=== PATIENT | female | born 1965 | race African-American/Black ===

== ENCOUNTER 2023-07-22 09:40 | Outpatient (REF) | payer MEDICAID, SELFPAY ==
[2023-07-22 15:42] LABS: Alanine Aminotransferase 15 U/L (0-31); Albumin Level 4.1 g/dL (3.5-5.0); Alkaline Phosphatase 86 U/L (39-117); Anion Gap 16 (12-20); Aspartate Amino Transferase 18 U/L (5-31); Bilirubin Total 0.5 mg/dL (0.0-1.0); Blood Urea Nitrogen 37 mg/dL (9-16); Calcium 9.3 mg/dL (8.4-10.2); Carbon Dioxide 21 mmol/L (22-29); Chloride 110 mmol/L (96-108); Cholesterol 190 mg/dL (<200); Estimated Glomerular Filt Rate 33; Glucose Fasting 89 mg/dL (60-99); HDL Cholesterol 69 mg/dL (>40); LDL Cholesterol Calculated 104 mg/dL (<100); Potassium 3.8 mmol/L (3.3-5.1); Sodium 143 mmol/L (135-145); Total Protein 7.3 g/dL (6.5-8.0); Triglycerides 89 mg/dL (<150)
== END 2023-07-22 09:41 | disposition home or self-care (01) ==
LOC: HO.CHCLDS 09:40
PROVIDERS: Visit Provider Internal Medicine
DX: E78.2 Mixed hyperlipidemia (principal)
CPT/HCPCS: 36415; 80053; 80061

== ENCOUNTER 2025-07-10 10:45 | Outpatient (AMB) | payer OTHER, SELFPAY ==
--- NOTE | 2025-07-10 10:46 | MHC.OFFVIS ---
Vital Signs 07/10/25 10:55 Height 5 ft 1 in BP 142/78 H Blood Pressure Location Lt brachial Position Sitting Respiration 16 Pulse 85 Pulse Oximetry (%) 96 Intake Visit Reasons: ENP: Loss of consciousness/ Hx of Seizures Business Process Specialist Required: No Allergies fentanyl Allergy (Unknown, Verified 07/10/25 10:57) Unknown Iodinated Contrast Media (Contrast Dye) Allergy (Unknown, Verified 07/10/25 10:57) Unknown morphine Allergy (Unknown, Verified 07/10/25 10:57) Unknown Sulfa (Sulfonamide Antibiotics) Allergy (Unknown, Verified 07/10/25 10:57) Unknown sulfamethoxazole (From Bactrim) Allergy (Unknown, Verified 07/10/25 10:57) Unknown trimethoprim (From Bactrim) Allergy (Unknown, Verified 07/10/25 10:57) Unknown HPI Comments Details: Elle is a 60-year-old female patient is with a past medical history of seizure, memory concerns, hyperlipidemia, GERD, and depression who is here today for an evaluation of loss of consciousness . She tells me that she was diagnosed with a stroke in March of 2006 at which time she developed some seizure activity. She had a few recurrent seizure events a couple of months after her stroke diagnosis and has been on Keppra. She had eventually come off of Keppra and has been stable for many years until in 2021 when she was placed on tacrolimus for her kidney transplant. She had a breakthrough seizure after starting the tacrolimus and since then has been on levetiracetam 500 mg twice daily. Since re-initiation of levetiracetam, she had remained stable up until late April/early May of 2024 when she had an event where she was disoriented and has a complete loss of awareness over the course of an approximate 3 hour time span. During this time, she called family and friends to ask them if they would like to share a glass of wine with her. She however had not been drinking. She was acting very ?silly? according to others whom she spoke to and not quite herself. Elle however has no recollection of these interactions. She was able to recall in-home camera footage and noted that she also had slurred speech. Again, after watching the footed, she had no recollection of interactions or activity that would on over the course of a 3 hour time span. She was not noted on camera or witnessed by others to have any shaking episodes, staring episodes, or loss of consciousness. She does remember taking the levetiracetam 500 mg that morning and overall, she has good compliance with this medication. She denies any illness leading up to the event, significant stress triggers or significant acute changes in her sleep. She does however note that she lost her son approximately 5 months ago and her moods as well as sleep has been affected somewhat chronically since then. Seizure background information: Onset of seizures:2005 Date of last seizure: Likely May 2025 Seizure type: Previously witnessed seizures have been tonic-clonic Aura/warning signs: Unknown Postictal period: Disorientation Triggers: Unknown Last brain imagin06/2025 Last EEG: She recalls having an EEG done a few years back but can not recall where Current medications: Levetiracetam 500 mg twice daily Compliance with medications: Good compliance History of brain infection: No History of significant illness or hospitalization: No History of stroke of brain bleed: Patient reports stroke x2. There are micro idiopathic changes on her MRI but no evidence of previous territorial infarct History of pre-term : No History of learning disability: No History of developmental delay: No Family history of seizure No [facility] Medical History (Updated 07/10/25 @ 13:44 by Oksana Raines CNP) Insomnia HLD (hyperlipidemia) Hypertension GERD (gastroesophageal reflux disease) Seizures Review of Systems Const All systems reviewed & are unremarkable except as noted in HPI and below Physical Exam Vital Signs: Last Vital Signs Pulse 85 07/10/25 10:55 Resp 16 07/10/25 10:55 BP 142/78 H 07/10/25 10:55 Pulse Ox 96 07/10/25 10:55 Const General: cooperative, healthy appearing, comfortable and no acute distress Nutritional Appearance: well nourished Orientation/consciousness: patient oriented x3 Limitations: no limitations HEENT Head: Yes normal to inspection and Yes normocephalic Eyes General: appearance normal, both eyes and all related structures Visual Sanderson: normal visual sanderson by confrontation Alignment and Position: alignment normal Periorbital: periorbital findings normal Eyelids: Yes eyelids normal Conjunctivae: conjunctivae normal Sclerae: sclerae normal Neck Neck: Yes normal visual inspection and Yes full ROM Neuro General: patient oriented x3 and deep tendon reflexes 2+ bilaterally Cranial nerves: Yes CN's II-XII intact bilaterally and Yes Facial sensation intact/muscles of mastication intact Cognition (Neuro): normal cognition Gait exam (Neuro): Normal gait present Motor exam (neuro): 5/5 motor strength present throughout and no tremor noted Sensory Exam: double simultaneous stimulation for sensation normal Romberg Test: Negative Pupils: Normal pupillary reactivity/response: bilateral Psych Appearance: grossly normal Mental Status: mental status grossly normal Speech and movement: Normal speech and movement present and Clear speech present Affect: normal affect Attitude: cooperative Thought process: Normal thought process present Thought content: Normal thought content present Insight: Good insight present (Psych) Judgement: Good judgement present (Psych) Assessment & Plan Assessment & Plan (1) Seizure disorder as sequela of cerebrovascular accident: Code(s): I69.398 - Other sequelae of cerebral infarction; G40.909 - Epilepsy, unspecified, not intractable, without status epilepticus Category: Medical (2) Disassociation: Code(s): F48.8 - Other specified nonpsychotic mental disorders Category: Medical Plan Elle is a 60-year-old female patient is with a past medical history of seizure, memory concerns, hyperlipidemia, GERD, and depression who is here today for an evaluation of loss of consciousness . Rather than a loss of consciousness, this patient describes an episode in late April/early May of 2024 when she had a near 3 hour time span of dissociation and disorientation. There was no loss of consciousness, tongue biting, witnessed shaking, or witnessed staring episodes. She has been compliant with her levetiracetam. She has in the past tolerated levetiracetam at higher dosing and therefore I think it is reasonable to increase her levetiracetam to 750 mg twice daily. I am also recommending a 24 hour ambulatory EEG to evaluate for ongoing seizure activity/episodes that may have otherwise been undetected provided that the patient had no recollection of her dissociative event that occurred back in the late summer. Once we obtain the ambulatory EEG, we will follow-up. The patient was given information to access the patient portal and was encouraged to communicate with me should she have any new arising symptoms. DD: Other transient amnesia -24hr AEEG -Increase leveteracetam to 750mg twice daily Orders: Orders EEG ambulatory Today R41.0 - Disorientation, unspecified Medications: New levetiracetam 750 mg PO BID 180 tabs 3RF 90 days Coding Level of Care Code New Pt Level 4 (18300) Diagnoses Seizure disorder as sequela of cerebrovascular accident I69.398; G40.909 Disassociation F48.8
[2025-07-10 10:55] VITALS: BP 142/78; PULSE 85; RESP 16; O2SAT 96
--- OUTSIDE RECORDS SUMMARY | 2025-07-10 12:19 | XMS_ITS | Clinical Summary ---
Author Organization [facility] Address [address] [place] [address] Care Team Providers Care Assembly Hand Name Role Phone Name, Chris LOVELACE Primary Care Provider Medications famotidine (PEPCID) 20 mg tabletIndication s:Gastroesophage al reflux disease without esophagitis Take 1 tablet (20 mg total) by mouth 2 (two) times a day. 180 each 3 08/21/2024 Active Surgical History Surgery Date Site/Laterality Comments OTHER SURGICAL HISTORY 09/26/2013 PROCEDURE: NC RENAL ALTRNSPLJ IMPLTJ GRF W/O PHLEBOTOMY MANAGER NEPHRECTOMY; COMMENT: Living related donor HERNIA REPAIR PROCEDURE: HISTORICAL HERNIA REPAIR/NAVNEET HERNIA REPAIR PROCEDURE: HISTORICAL HERNIA REPAIR/UMB BREAST REDUCTION PROCEDURE: NC BREAST REDUCTION OTHER SURGICAL HISTORY PROCEDURE: NC COLECTOMY PARTIAL W/ANASTOMOSIS; COMMENT: diverticular bleed PARATHYROIDECTOMY PROCEDURE: HISTORICAL PARATHYROIDECTOMY COLONOSCOPY 01/05/2016 PROCEDURE: HISTORICAL COLONOSCOPY; COMMENT: internal hemorrhoids, repeat 10 years. No path report. OTHER SURGICAL HISTORY 03/2020 PROCEDURE: NC CLOSURE NEPHROCUTANEOUS/PYELOCUTANEOUS FISTULA Medical History Medical History Date Comments End-stage renal disease (ESR D) (CMS/HCC V24, CMS/HCC V28) 08/13/2019 DX:End-stage renal disease (ESRD) ([facility] COMMENT: Secondary to focal segmental glomerulosclerosis s/p transplant. Depression 08/13/2019 DX:Depression Gout 08/13/2019 DX:Gout History of maternal deep vei n thrombosis (DVT) 08/13/2019 DX:History of maternal deep vein thrombosis (DVT); COMMENT: Upper extremity Hyperlipidemia 08/13/2019 DX:Hyperlipidemi a History of seizure 08/13/2019 DX:History of seizure Positive PPD, treated 08/13/2019 DX:Positiv e PPD, treated; COMMENT: INH Refusal of blood transfusion s as patient is Anabaptism 08/13/2019 DX:Refusal of blood trans fusions as patient is Anabaptism Severe obesity with body mas s index (BMI) of 35.0 to 39.9 with comorbidity (CMS/HCC V24, CMS/HCC V28) 08/13/2019 DX:Severe obesity with body mass index (BMI) of 35.0 to 39.9 with comorbidity (HCC) History of CVA (cerebrovascu lar accident) 08/13/2019 DX:History of CVA (cerebrova scular accident); COMMENT: Doing well, no residual. History of renal transplant 08/13/2019 DX:H istory of renal transplant; COMMENT: 09/26/2013 Family History Medical History Relation Name Comments Heart attack Father Relation Name Status Comments Father Mother Social History Tobacco Use Types Packs/Day Years Used Date Smoking Tobacco: Former Cigarettes Q uit: 05/27/1987 Smokeless Tobacco: Never Alcohol Use Standard Drinks/Week Comments Yes 0 (1 standard drink = 0.6 oz pur e alcohol) Comments Unknown Sex and Gender Information Value Date Recorded Sex Assigned at Not on file Legal Sex Female 8:50 PM EST Gender Identity Not on file Sexual Orientation Not on file Obstetrics History Plan of Treatment Health Maintenance Due Date Last Done Comments Breast Cancer Screening 1965 Colorectal Cancer Screening: Colonoscopy 1965 COVID-19 Vaccine (#1) 1970 Zoster Vaccines (1 of 2) 1984 Cervical Cancer Screening: P ap Smear 1986 Pneumococcal Vaccine: 50+ Ye ars (2 of 2 - PCV) 2015 04/18/2007 DTaP,Tdap,and Td Vaccines (2 - Td or Tdap) 04/05/2021 04/05/2011 Cholesterol Screening (Lipid Panel) 09/11/2022 HIV Screening 09/11/2022 Hepatitis C Screening 09/11/2022 Social Influencers of Health Screening 09/11/2022 Depression Screening 10/10/2024 Influenza Vaccine (#1) 2025 RSV Immunization Adult Patie nts (1 - Risk 60-74 years 1-dose series) 2025 HIB Vaccines Aged Out No longer eligi ble based on patient's age to complete this topic HPV Vaccines Aged Out No longer eligi ble based on patient's age to complete this topic Hepatitis A Vaccines Aged Out No long er eligible based on patient's age to complete this topic Hepatitis B Vaccines Aged Out No long er eligible based on patient's age to complete this topic IPV Vaccines Aged Out No longer eligi ble based on patient's age to complete this topic MMR Vaccines Aged Out No longer eligi ble based on patient's age to complete this topic Meningococcal ACWY Vaccine Aged Out N o longer eligible based on patient's age to complete this topic Meningococcal B Vaccine Aged Out No l onger eligible based on patient's age to complete this topic RSV Immunization Patients Un tito 20 months Aged Out No longer eligible b ased on patient's age to complete this topic Varicella Vaccines Aged Out No longer eligible based on patient's age to complete this topic Advance Directives Documents on File Type Date Recorded Patient Foil Operator Expl anation Health Care Decision (hx) 01/17/2020 AD SEBASTIAN DIRECTIVE Health Care Decision (hx) 01/17/2020 AD SEBASTIAN DIRECTIVE Care Teams Assembly Hand Relationship Specialty Start Date End Date Name, MD Chris [address] [place] [address] PCP - General Internal Medicine 07/30/20
--- OUTSIDE RECORDS SUMMARY | 2025-07-10 12:19 | XMS_ITS | Encounter Summary ---
Author Organization [facility], Address [address] [facility] [address] [place] [address] Phone Care Team Providers Care Staffing Program Manager Name Role Phone Jerome Fan Primary Care Provider [phone] Encounter Details Date Type Department Care Team (Late st Contact Info) Description 04/04/2024 Documentation Only [facility] [address] [place] [phone] [place] [address] [place] [phone] Social History Tobacco Use Types Packs/Day Years Used Date Smoking Tobacco: Never Smokeless Tobacco: Never Comments:Smoking History Inf o:Unknown Alcohol Use Standard Drinks/Week Comments Yes 0 (1 standard drink = 0.6 oz pure alcohol) Alcoholic Drinks/day: Occasional social drink Comments Unknown Sex and Gender Information Value Date Recorded Sex Assigned at Not on file Legal Sex Female 5:05 PM EST Gender Identity Not on file Sexual Orientation Not on file documented as of this encounter Plan of Treatment Upcoming Encounters Date Type Department Care Team (Late st Contact Info) Description 08/07/2025 2:00 PM EDT Telemedicine [facility] [address] [place] [id number] 08/30/2025 10:45 AM EST Office Visit [facility] [address] [place] [phone] Jose Manuel Seth MD [address] [place] [place] [address] documented as of this encounter Visit Diagnoses Not on filedocumented in this encounter Care Teams Staffing Program Manager Relationship Specialty Start Date End Date Jerome Fan [address] [place] [id number] PCP - General Internal Medicine 08/17/24 documented as of this encounter
--- OUTSIDE RECORDS SUMMARY | 2025-07-10 12:19 | XMS_ITS | Encounter Summary ---
Author Organization [facility] Address [address] [facility] [address] [place] [address] Phone Care Team Providers Care Marketing Project Lead Name Role Phone Jerome Fan Primary Care Provider + [phone] Reason for Visit * Reason Comments Med Refill Encounter Details Date Type Department Care Team (Late st Contact Info) Description 03/14/2023 Refill [facility] [address] [facility] [address] [place] [phone] Elsy Pond MD Insomnia, not otherwise specified (Primary Dx) Social History Tobacco Use Types Packs/Day Years Used Date Smoking Tobacco: Never Comments:Smoking History Inf o:Unknown Alcohol [...] Telemedicine [facility] [address] [place] [address] 08/30/2025 10:45 AM EST Office Visit [facility] [address] [place] [address] Jose Manuel Seth MD [address] [place] [address] [place] [address] documented as of this encounter Visit Diagnoses Diagnosis Insomnia, not otherwise specified- Primary documented in this encounter Care Teams Marketing Project Lead Relationship Specialty Start Date End Date Jerome Fan: [phone] [address] [place] [id number] PCP - General Internal Medicine 08/17/24 documented as of this encounter
--- OUTSIDE RECORDS SUMMARY | 2025-07-10 12:19 | XMS_ITS | Encounter Summary ---
Author Organization [employer] Address [address] [facility] 7 [place] [address] Care Team Providers Care Membership Manager Name Role Phone Jerome Esqueda MD Primary Care Prov ider Reason for Visit * Reason Comments Med Change Request Encounter Details Date Type Department Care Team ([facility] Contact Info) Description 07/23/2023 Refill [facility] [address] [place], [place] [phone] Jerome Esqueda MD [address] [place] [address] Social History Tobacco Use Types Packs/Day Years Used Date Smoking Tobacco: Never Assessed Depression Answer Date Recorded Patient Health Questionnaire-9 Score 1 05/16/2023 Housing Stability Answer Date Recorded What is your housing situation today? I have elaine lima 07/25/[address] you li ve. Do you have problems with any of the following? None of the above 07/25/2023 Food Insecurity Answer Date Recorded Within the past 12 months, y ou worried that your food would run out before you got money to buy more: Never True 07/25/2023 Within the past 12 months,th e food you bought just didn't last and you didn't have enough money to get more: Never True Transportation Answer Date Recorded In the past 12 months, has l ack of transportation kept you from medical appts, meetings, work or from getting things needed for daily living? No 07/25/2023 Utilities Answer Date Recorded In the past 12 months, has t he electric, gas, oil or water company threatened to shut off services in your home? No 07/25/2023 Depression Answer Date Recorded Patient Health Questionnaire-2 Score 1 05/16/2023 Comments Unknown Sex and Gender Information Value Date Recorded Sex Assigned at Female 08/09/2022 10:36 AM EDT Legal Sex Female 10:36 AM EDT Gender Identity Female 08/09/2022 10:36 AM EDT Sexual Orientation Straight 08/09/2022 10 :36 AM EDT documented as of this encounter Plan of Treatment Upcoming Encounters Date Type Department Care Team (Late st Contact Info) Description 08/14/2025 2:00 PM EST Telemedicine [facility] [address] [place] [address] Jerome Esqueda MD [address] [place] [address] documented as of this encounter Visit Diagnoses Not on filedocumented in this encounter Additional Health Concerns Assessment Noted Time PHQ-9 Depression Total Score: 1 05/16/20 23 1:21 PM EDT documented as of this encounter Care Teams Membership Manager Relationship Specialty Start Date End Date Jerome Esqueda MD [address] [place] [address] PCP - General Internal Medicine 12/04/19 documented as of this encounter
--- OUTSIDE RECORDS SUMMARY | 2025-07-10 12:19 | XMS_ITS | Clinical Summary ---
Author Organization [employer] Address [address] [facility] 7t [place] [address] Care Team Providers Care Realty Loan Specialist Name Role Phone Jerome Esqueda MD Primary Care Prov ider Allergies Active Allergy Reactions Criticality Noted Date Comments Sulfamethoxazole-Trimethoprim Hives Low 2022 Fentanyl 11/08/2022 Iodinated Contrast Media Hives Low 11/08/2022 Morphine 11/08/2022 Oxycodone-Acetaminophen 11/08/2022 Sulfadiazine Other 11/08/2022 Acetaminophen-Codeine 11/08/2022 Lisinopril Other Low 11/08/2022 Medications * This document contains information received from the source organization and may not represent a complete record from that organization. albuterol 108 (90 Base) MCG/ACT inhalerIndicatio ns:Bilateral rales,Cough, unspecified type Inhale 2 puffs every 6 (six) hours if needed for wheezing. 18 g 11 11/08/19 23 Active mycophenolate (Myfortic) 180 MG EC tablet 10/26/19 23 Active predniSONE (Deltasone) 2.5 MG tablet 10/26/19 23 Active atorvastatin (Lipitor) 10 MG tablet 09/29/20 22 Active aspirin 81 MG chewable tablet Chew 81 mg. 04/06/20 21 Active famotidine (Pepcid) 20 MG tablet 09/29/20 22 Active levETIRAcetam (Keppra) 500 MG tablet Take 500 mg by mouth. 09/29/20 22 Active furosemide (Lasix) 40 MG tablet Take 40 mg by mouth. 09/07/20 22 Active traZODone (Desyrel) 50 MG tablet Take 50 mg by mouth in the morning. Active loratadine (Claritin) 10 MG tablet Take 10 mg by mouth. 03/11/20 22 Active Spacer/Aero-Hold ing Chambers (Pro Comfort Spacer Adult) miscIndications: Mild intermittent asthma without complication 1 kit 3 times daily. 1 each 12/06/19 23 Active sertraline (Zoloft) 100 MG tablet TAKE ONE TABLET BY MOUTH ONCE DAILY 90 tablet 06/21/2025 11:50 AM EDT 06/14/20 25 Active zolpidem (Ambien) 10 MG tablet TAKE 1 TABLET BY MOUTH IF NEEDED AT BEDTIME FOR SLEEP 30 tablet 06/28/2025 11:04 AM EDT 06/25/20 25 Active sertraline (Zoloft) 100 MG tablet Take 1 tablet (100 mg) by mouth Once per day. 90 tablet 03/27/2025 2:42 PM EDT 03/26/20 25 025 Discontinued zolpidem (Ambien) 10 MG tablet TAKE 1 TABLET (10 MG) BY MOUTH IF NEEDED AT BEDTIME FOR SLEEP 30 tablet 05/31/2025 2:29 PM EDT 05/27/20 25 025 Discontinued Active Problems Problem Noted Date Diagnosed Date Adjustment disorder with depressed mood 03/27/20 25 Assessment & Plan (04/17/2025 3:58 PM EDT): During IBH Consult Elle presenting with depressed mood, Tearful, crying spells , hopelessness, loss of interests/pleasure , change in appetite or weight reduce appetite, changes in sleep difficulty falling asleep and difficulty staying asleep , difficulty concentrating, indecisiveness; for a period of 0-6 mo, for most or all symptoms in the context of . Pt experiencing emotional and physical pain associated with the of her son. Today, Elle reported having good and bad days. She is focusing on the good memories and remembering the times she spent with her son. We discussed and assessed willingness of seeking for additional support. Pt feels motivated in connecting with support groups and getting to know others who are going through the same pain. clinician provided information for bereavement groups and provided pt with their contact info. Pt was also informed of referral made on 04/01 to [facility]- provided contact info as well. clinician will continue to provide additional support as requested from pt and as needed. Assessment & Plan (04/01/2025 3:32 PM EDT): During IBH Consult Elle presenting with depressed mood, Tearful, crying spells , hopelessness, loss of interests/pleasure , sense of isolation/loneliness , isolating, change in appetite or weight reduce appetite, changes in sleep difficulty falling asleep and difficulty staying asleep , psychomotor retardation, fatigue/loss of energy, difficulty concentrating, indecisiveness, angry, confused, severe sadness and yearning; for a period of almost two months (passing of her son was on 01/2025), for most or all symptoms in the context of . Elle is going through a difficult time emotionally due to losing her adult son (twin brother) unexpectedly. Pt receives positive support from her scientologist community and family. Provided empathic counseling and discuss plan to use during this difficult time. Bereavement 03/27/2025 Assessment & Plan (06/13/2025 9:58 AM EDT): Patient has good family support, no suicidal/homicidal ideas, continue with therapist follow up, will follow up in 3 months Assessment & Plan (04/17/2025 3:58 PM EDT): During IBH Consult Elle presenting with depressed mood, Tearful, crying spells , hopelessness, loss of interests/pleasure , change in appetite or weight reduce appetite, changes in sleep difficulty falling asleep and difficulty staying asleep , difficulty concentrating, indecisiveness; for a period of 0-6 mo, for most or all symptoms in the context of . Pt experiencing emotional and physical pain associated with the of her son. Today, Elle reported having good and bad days. She is focusing on the good memories and remembering the times she spent with her son. We discussed and assessed willingness of seeking for additional support. Pt feels motivated in connecting with support groups and getting to know others who are going through the same pain. clinician provided information for bereavement groups and provided pt with their contact info. Pt was also informed of referral made on 04/01 to [facility]- provided contact info as well. clinician will continue to provide additional support as requested from pt and as needed. Screening for colon cancer 01/17/2025 Assessment & Plan (01/17/2025 12:32 PM EDT): Done on 2018, due in 10 years Primary insomnia 09/20/2023 Assessment & Plan (09/20/2023 10:50 AM EST): Patient on zolpidem 5mg, will increase dose to 10mg, will add additional 5mg, lifestyle modifications were discussed Class 3 severe obesity due t o excess calories with serious comorbidity and body mass index (BMI) of 40.0 to 44.9 in adult 07/23/2023 Assessment & Plan (12/12/2023 2:54 PM EST): Will place nutrition referral, Assessment & Plan (07/23/2023 10:16 AM EDT): Patient is interested in starting wegovy, it was also recommended by her development geologist, will place order, reviewed side effects Mixed hyperlipidemia 07/23/2023 Assessment & Plan (07/23/2023 10:20 AM EDT): On atorvastatin 10mg, will place orders for new cmp/lipid panel Opacity of lung on imaging study 02/25/2023 Assessment & Plan (02/25/2023 1:42 PM EDT): Patient has hx of effusion, chest tube and talc pleurodesis, lung ct from 07/31 and chest xray showed iatrogenic changes, no nodules seen, discussed results with patient, she does have a lung biopsy done in 2019 which is not the chart, will request results, for now recommended observation. Atypical ductal hyperplasia of breast 01/26/2023 Assessment & Plan (05/31/2024 10:41 AM EDT): Saw oncologist on 10/2023, continue surveillance Class 1 obesity 01/26/2023 End stage renal failure on dialysis (CMS/HCC) Overview (01/26/2023): previous on PD and now on HD Hemorrhoids without complication 01/26/2023 Hyperlipidemia 01/26/2023 History of renal transplant 01/26/2023 History of thyroidectomy 01/26/2023 Lactic acid acidosis 01/26/2023 Renal transplant failure and rejection Severe obesity (BMI 35.0-39.9) with comorbidity [place] 01/26/2023 Proteinuria 01/20/2023 Seizure ([facility] 01/20/2023 Dyspnea 12/08/2022 Edema 12/08/2022 Murmur 12/08/2022 Elevated blood pressure reading 11/08/2022 Cerebrovascular accident ([facility]) 07/29/2022 Assessment & Plan (05/16/2023 2:21 PM EDT): Patient with a low toilet seat, will send rx for raised toilet seat with handles. Lactic acidosis 07/29/2022 Anemia in chronic kidney disease 07/22/2022 Kidney transplant status 07/22/2022 Assessment & Plan (07/23/2023 10:20 AM EDT): Followed by nephrology History of kidney transplant 03/28/2022 Overview (01/26/2023): campath induction/DCD Depressive disorder 03/05/2022 End-stage renal disease on hemodialysis ([facility] [place] 03/05/2022 Gastrointestinal hemorrhage 03/24/2021 Acquired absence of kidney 05/08/2019 Acquired deformity of pelvis 05/08/2019 Acid reflux 04/14/2018 Bilateral carpal tunnel syndrome 04/14/2018 Chronic nephritic syndrome 04/14/2018 Diastolic dysfunction 04/14/2018 Essential hypertension 04/14/2018 Assessment & Plan (01/17/2025 12:31 PM EDT): Controlled, continue low sodium diet and exercise, keep bp log, follow up in 4 months Assessment & Plan (11/15/2024 2:29 PM EST): Controlled, keep low sodium diet, keep bp log, target <140/90 Assessment & Plan (05/31/2024 10:40 AM EDT): Controlled, followed by nephrology, continue low sodium diet and exercise as tolerated Assessment & Plan (12/12/2023 2:53 PM EST): Controlled, refers does not goes above 140/90, continue same treatment, follow up in 4 months Gout 04/14/2018 Graft rejection 04/14/2018 Hyperparathyroidism due to renal insufficiency 0 04/14/2018 Hypertensive heart and renal disease with (congestive) heart failure 04/14/2018 Lymphocele after surgical procedure 04/14/2018 Mantoux: positive 04/14/2018 Status post laparoscopic colectomy 04/14/2018 Superficial injury of abdominal wall with infect ion 04/14/2018 Encounters * This document contains information received from the source organization and may not represent a complete record from that organization. Date Type Department Care Team Description 06/22/2025 Refill [facility] [address] [facility] [place] [address] Jerome Esqueda MD 06/13/2025 Refill [facility] MED & P[facility] [address] [facility] [place] [address] Jerome Esqueda MD 05/29/2025 10:30 AM EDT Telemedicine [facility] MED & PEDS [address] [place] [address] Jerome Esqueda MD Loss of consciousness (CMS/HCC) (Primary Dx) 05/29/2025 Travel 05/28/2025 Telephone [facility] [address] Jerome Esqueda MD chart prep 05/23/2025 Refill [facility] MED & PEDS [address] [place] [address] Jerome Esqueda MD 05/22/2025 Travel 05/20/2025 Telephone [facility] MED & PEDS [address] [place] [address] Jerome Esqueda MD Appointment Request 05/09/2025 11:30 AM EDT Telemedicine [facility] MED & PEDS [address] [place] [address] Jerome Esqueda MD Bereavement (Primary Dx) 05/09/2025 Travel 05/08/2025 Telephone [facility] MED & PEDS [address] [place] [address] Jerome Esqueda MD chart prep 04/24/2025 Refill [facility] MED & PEDS [address] [place] [address] Jerome Esqueda MD from Last 3 Months Social History Tobacco Use Types Packs/Day Years Used Date Smoking Tobacco: Never Smokeless Tobacco: Never Tobacco Cessation:Counseling Given: Not Answered Alcohol Use Standard Drinks/Week Comments Never 0 (1 standard drink = 0.6 oz pur e alcohol) Depression Answer Date Recorded Patient Health Questionnaire-9 Score 16 04/17/2025 Patient Health Questionnaire-9 Score 16 04/17/2025 Last PHQ-9: Questionnaire Data Not on file 0 04/17/2025 Housing Stability Answer Date Recorded What is your housing situation today? I have elaine janie 05/09/[address] you li ve. Do you have problems with any of the following? None of the above 05/09/2025 Food Insecurity Answer Date Recorded Within the past 12 months, y ou worried that your food would run out before you got money to buy more: Never True 05/09/2025 Within the past 12 months,th e food you bought just didn't last and you didn't have enough money to get more: Never True Transportation Answer Date Recorded In the past 12 months, has l ack of transportation kept you from medical appts, meetings, work or from getting things needed for daily living? No 05/09/2025 Utilities Answer Date Recorded In the past 12 months, has t he electric, gas, oil or water company threatened to shut off services in your home? No 05/09/2025 Depression Answer Date Recorded Patient Health Questionnaire-2 Score 6 04/17/2025 Internet Access Answer Date Recorded Internet Access Q1 Yes 05/09/2025 Internet Access Q2 Not on file 05/09/2025 Comments Unknown Sex and Gender Information Value Date Recorded Sex Assigned at Female 08/09/2022 10:36 AM EDT Legal Sex Female 10:36 AM EDT Gender Identity Female 08/09/2022 10:36 AM EDT Sexual Orientation Straight 08/09/2022 10 :36 AM EDT Last Filed Vital Signs Vital Sign Reading Time Taken Comments Blood Pressure 126/69 01/17/2025 10:50 AM EDT Pulse 88 04/10/2024 3:23 PM EDT Temperature 37.1 C (98.7 F) 04/10/2024 3:23 PM EDT Respiratory Rate 20 04/10/2024 3:23 PM EDT Oxygen Saturation 96% 07/22/2023 8:54 AM EDT Inhaled Oxygen Concentration - - Weight 106 kg (233 lb 9.6 oz) 06/22/2024 1:23 PM EDT Height 154.9 cm (5' 1 ) 06/22/2024 1:23 PM EDT Body Mass Index 44.14 06/22/2024 1:23 PM EDT Plan of Treatment Upcoming Encounters Date Type Department Care Team (Late st Contact Info) Description 08/14/2025 2:00 PM EST Telemedicine [facility]S [address] [place] [address] Jerome Esqueda MD [address] [place] [address] Health Maintenance Due Date Last Done Comments CT Colonography 1965 Colonoscopy 1965 Colorectal Cancer Screening 1965 FIT DNA/Cologuard 1965 FIT 1965 FOBT 1965 HIV Screening 1965 Sigmoidoscopy 1965 Disability Screening 1965 Hepatitis C Screening 1983 Pap Smear 1986 Cervical Cancer Screening 1995 HPV/Cotest 1995 Pneumococcal Vaccine: 50+ Years (2 of 2 - PCV) 04/18/2008 04/18/2007 DTaP/Tdap/Td Vaccines (2 - Td or Tdap) 04/05/2021 04/05/2011 Tobacco Screening 12/11/2024 12/12/2023 COVID-19 Vaccine ( season) 2025 07/22/2023, 2022, 02/13/2022, Additional history exists Influenza Vaccine (#1) 2025 3, 10/01/2022, 07/30/2021, Additional history exists RSV Patients and Patients Aged 60 years or older (1 - Risk 60-74 years 1-dose series) 2025 Depression Monitoring 10/18/2025 04/17/2025, 025 Alcohol/Substance Use Screening 05/09/2026 05/09/2025 SDOH Screening 05/09/2026 05/09/2025 Mammogram 10/19/2026 10/19/2024 Lipid Panel 07/22/2028 07/22/2023 Zoster Vaccines Completed 07/07/2022, 03/12/2022 HIB Vaccines Aged Out No longer eligi [...] patient's age to complete this topic Meningococcal Vaccine Aged Out No sandra renan eligible based on patient's age to complete this topic RSV under 20 months Aged Out No longe r eligible based on patient's age to complete this topic Rotavirus Vaccines Aged Out No longer eligible based on patient's age to complete this topic Procedures Procedure Name Priority Date/Time Associated Diagnosis Comments MR BRAIN WO CONTRAST Routine 06/20/2025 Loss of consciousness (CMS/HCC) HM MAMMOGRAPHY Routine 10/19/2024 LIPID PANEL, STANDARD Routine 07/22/2023 9:45 AM EDT Mixed hyperlipidemia from Last 3 Months or Most Recently Relevant to Health Maintenance Results * MR Brain w/o Contrast (06/20/2025) Anatomical Region Laterality Modality Brain Magnetic Resonan ce Jerome Rodriguez MD IMG MRI PROCEDURES Final Result * Mammography (10/19/2024) Mammogram BIRADS 2 Normal, Abnormal, BIRADS 1 , BIRADS 2 Anatomical Region Laterality Modality Other Nir Provider HEALTH MAINTENANCE Final Result * (ABNORMAL) Lipid Panel, Standard (07/22/2023 9:45 AM EDT) Triglycerides 89 <150 mg/dL [facility] Comment:Desirable Triglyceri de: less than 150 mg/dLBorderline High Triglyceride 150-199 mg/dLHigh Triglyceride: 200-499 mg/dLVery High Triglyceride: greater than or equal to 5OO mg/dL Cholesterol 190 <200 mg/dL [facility] Comment:Desirable Cholestero l: less than 200 mg/dLBorderline High Cholesterol: 200-239 mg/dLHigh Cholesterol: greater than 239 mg/dL LDL Cholesterol Calculated 104(H) <100 mg/dL [facility] Comment:Desirable LDL: less than 100 mg/dLNear Optimal/Above Optimal LDL: 110- 129 mg/dLBorderline High LDL: 130-159 mg/dLHigh LDL: 160-189 mg/dLVery High LDL: greater than or equal to 190 mg/dL HDL Cholesterol 69 >40 mg/dL [facility] Comment:Desirable HDL: great er than 40 mg/dL Note: This HDL assay may give artificially low results in patients with liver disease. Blood Venous blood specimen / Unknown 07/22/2023 9:45 AM EDT 07/22/2023 2:26 PM EDT Jerome Rodriguez MD LAB BLOOD ORDERABL ES Final Result [facility] [address] [place] [phone] from Last 3 Months or Most Recently Relevant to Health Maintenance Insurance [facility] Care Teams Realty Loan Specialist Relationship Specialty Start Date End Date Jerome Esqueda MD [address] [place] [phone] PCP - General Internal Medicine 12/04/19
--- OUTSIDE RECORDS SUMMARY | 2025-07-10 12:19 | XMS_ITS | Encounter Summary ---
Author Organization [employer] Address [address] [facility] 7 [place] [address] Care Team Providers Care Dogman/Woman Name Role Phone Jerome Esqueda MD Primary Care Prov ider Encounter Details Date Type Department Care Team (Late st Contact Info) Description 08/11/2023 Orders Only [facility]S [address] [place], [place] [phone] Jerome Esqueda MD [address] [place] [address] Social History Tobacco Use Types Packs/Day Years [...] Info) Description 08/14/2025 2:00 PM EST Telemedicine [facility] MED [facility] [address] [place] [address] Jerome Esqueda MD [address] [place] [address] documented as of this encounter Visit Diagnoses Not on filedocumented in this encounter Additional Health Concerns Assessment Noted Time PHQ-9 Depression Total Score: 1 05/16/20 23 1:21 PM EDT documented as of this encounter Care Teams Dogman/Woman Relationship Specialty Start Date End Date Jerome Esqueda MD [address] [place] [address] PCP - General Internal Medicine 12/04/19 documented as of this encounter
--- OUTSIDE RECORDS SUMMARY | 2025-07-10 12:19 | XMS_ITS | Encounter Summary ---
Author Organization [facility], Address [address] [facility] [address] [place] [address] Phone Care Team Providers Care Gullet Slitter Name Role Phone Jerome Fan Primary Care Provider [phone] Encounter Details Date Type Department Care Team (Late st Contact Info) Description 04/05/2024 Documentation Only [facility] [address] [place] [phone] [place] [address] [place] [phone] Social History Tobacco Use Types Packs/Day [...] Telemedicine [facility] [address] [place] [place] [phone] 08/30/2025 10:45 AM EST Office Visit [facility] [address] [place] [phone] Jose Manuel Seth MD [address] [place] [address] documented as of this encounter Visit Diagnoses Not on filedocumented in this encounter Care Teams Gullet Slitter Relationship Specialty Start Date End Date Jerome Fan [address] [place] [phone] PCP - General Internal Medicine 08/17/24 documented as of this encounter
--- OUTSIDE RECORDS SUMMARY | 2025-07-10 12:19 | XMS_ITS | Encounter Summary ---
Author Organization [facility], Address [address] [facility] [address] [place] [address] Phone Care Team Providers Care General Production Manager Name Role Phone Jerome Fan Primary Care Provider [phone] Encounter Details Date Type Department Care Team (Late st Contact Info) Description 04/06/2024 Documentation Only [facility] [address] [place] [phone] [place] [address] [phone] Social History Tobacco Use Types Packs/Day [...] Telemedicine [facility] [address] [place] [phone] 08/30/2025 10:45 AM EST Office Visit [facility] [address] [place] [phone] Jose Manuel Seth MD [address] [place] [address] documented as of this encounter Visit Diagnoses Not on filedocumented in this encounter Care Teams General Production Manager Relationship Specialty Start Date End Date Jerome Fan [address] [place] [phone] PCP - General Internal Medicine 08/17/24 documented as of this encounter
--- OUTSIDE RECORDS SUMMARY | 2025-07-10 12:19 | XMS_ITS | Encounter Summary ---
Author Organization [employer] Address [address] [facility] 7 [place] [address] Care Team Providers Care Barrel Liner Name Role Phone Jerome Esqueda MD Primary Care Prov ider Reason for Visit * Reason Onset Date Comments triage 02/16/2023 Encounter Details Date Type Department Care Team (Late st Contact Info) Description 02/16/2023 Telephone [facility] [address] [place] [address] Jerome Esqueda MD [address] [place] [address] triage Social History Tobacco Use Types Packs/Day Years Used Date Smoking Tobacco: Never Assessed Comments Unknown Sex and Gender Information Value Date Recorded Sex Assigned at Female 08/09/2022 10:36 AM EDT Legal Sex Female 10:36 AM EDT Gender Identity Female 08/09/2022 10:36 AM EDT Sexual Orientation Straight 08/09/2022 10 :36 AM EDT documented as of this encounter Miscellaneous Notes * Telephone Encounter - Jaida Brown RN - 02/16/2023 12:59 PM EDT Triage call, Pt reports getting a chest xray back in October and still doesn't know the results. Ptcontinues to have SOB when walking from bedroom to bathroom and requests to speak to PCP. Tele visit 02/21 @ 1130am. Pt agrees with this disposition . Advised to look for registration call that morning and Pt agrees. Protocol Used: Information Only Call - No Triage (Adult) Protocol-Based Disposition: Discuss with PCP and Callback by Nurse Today Override (Final) Disposition: See in Office or Video Visit within 2 Weeks Override Reason: Requests to speak with provider Video visit offer not recorded Positive Triage Question: * Nursing judgment * All higher-acuity triage questions were negative * Telephone Encounter - Denis Wellington - 02/16/2023 12:48 PM EDT Symptom: Breathing Trouble Outcome: Schedule an urgent appointment (within 1 hour) or talk to a nurse or provider soon Reason: Caller denied all higher acuity questions The caller accepted this outcome documented in this encounter Plan of Treatment Upcoming Encounters Date Type Department Care Team (Late st Contact Info) Description 08/14/2025 2:00 PM EST Telemedicine [facility] MED [facility] PED[facility] [address] [place] [address] Jerome Esqueda MD [address] [place] [address] documented as of this encounter Visit Diagnoses Not on filedocumented in this encounter Care Teams Barrel Liner Relationship Specialty Start Date End Date Jerome Esqueda MD [address] [place] [address] PCP - General Internal Medicine 12/04/19 documented as of this encounter
--- OUTSIDE RECORDS SUMMARY | 2025-07-10 12:19 | XMS_ITS | Encounter Summary ---
Author Organization [employer] Address [address] [facility] 7 [place] [address] Care Team Providers Care Inspector Conveyor Line Name Role Phone Jerome Esqueda MD Primary Care Prov ider Reason for Visit * Reason Comments Med Refill Encounter Details Date Type Department Care Team ([facility] Contact Info) Description 04/24/2025 Refill [facility] CHC MED & PEDS [address] [place], [place] [phone] Jerome Esqueda MD 505 [place] [address] Social History Tobacco Use Types Packs/Day Years Used Date Smoking Tobacco: Never Smokeless Tobacco: Never Alcohol Use Standard Drinks/Week Comments Never 0 [...] Recorded Patient Health Questionnaire-2 Score 6 04/17/2025 Comments Unknown Sex and Gender Information Value Date Recorded Sex Assigned at Female 08/09/2022 10:36 AM EDT Legal Sex Female 10:36 AM EDT Gender Identity Female 08/09/2022 10:36 AM EDT Sexual Orientation Straight 08/09/2022 10 :36 AM EDT documented as of this encounter Plan of Treatment Upcoming Encounters Date Type Department Care Team (Late st Contact Info) Description 08/14/2025 2:00 PM EST Telemedicine [facility] MED & PEDS [address] [place] [address] Jerome Esqueda MD [address] [place] [address] documented as of this encounter Visit Diagnoses Not on filedocumented in this encounter Additional Health Concerns Assessment Noted Time PHQ-9 Depression Total Score: 16 025 2:51 PM EDT documented as of this encounter Care Teams Inspector Conveyor Line Relationship Specialty Start Date End Date Jerome Esqueda MD [address] [place] [address] PCP - General Internal Medicine 12/04/19 documented as of this encounter
--- OUTSIDE RECORDS SUMMARY | 2025-07-10 12:19 | XMS_ITS | Encounter Summary ---
Author Organization [employer] Address [address] [place] [address] 7 [place] [address] Care Team Providers Care Product Support Specialist Name Role Phone Jerome Esqueda MD Primary Care Prov ider Reason for Visit * Reason Onset Date Comments New Med Request 02/24/2024 Encounter Details Date Type Department Care Team ([facility] st Contact Info) Description 02/24/2024 Telephone [facility] CHC MED & PEDS [address] [place], [place] [phone] Jerome Esqueda MD [address] [place] [address] New Med Request Social History Tobacco Use Types Packs/Day Years [...] encounter Miscellaneous Notes * Telephone Encounter - Wendy Isaac RN - 02/28/2024 2:14 PM EDT Pt would need to contact office to schedule appt to discuss if pt will qualify for these injectionsd/t pt chronic conditions. * Telephone Encounter - Winnie Urrutia - 02/24/2024 1:32 PM EDT Tc from Clotilde with [facility] pharmacy calling in regards to pt wanting a weight loss injection. States wegovy can be a possible injection that can be covered with PA. States pt is interested. documented in this encounter Plan of Treatment Upcoming Encounters Date Type Department Care Team (Late st Contact Info) Description 08/14/2025 2:00 PM EST Telemedicine [facility] CHC MED & PEDS [address] [place] [address] Jerome Esqueda MD [address] [place] [address] documented as of this encounter Visit Diagnoses Not on filedocumented in this encounter Additional Health Concerns Assessment Noted Time PHQ-9 Depression Total Score: 1 05/16/20 23 1:21 PM EDT documented as of this encounter Care Teams Product Support Specialist Relationship Specialty Start Date End Date Jerome Esqueda MD [address] [place] [address] PCP - General Internal Medicine 12/04/19 documented as of this encounter
--- OUTSIDE RECORDS SUMMARY | 2025-07-10 12:19 | XMS_ITS | Encounter Summary ---
Author Organization [facility] Address [address] [place] [address] Phone Care Team Providers Care Bulb Filler Name Role Phone FanJerome morrow Primary Care Provider + [phone] Reason for Visit * Reason Onset Date Comments Med Refill 05/18/2021 Encounter Details Date Type Department Care Team (Late Contact Info) Description 05/18/2021 Refill [facility] [address] [facility] [address] [place] [phone] Lanny Reyes RN Social History Tobacco Use Types Packs/Day Years [...] Telemedicine [facility] [address] [place] [phone] 08/30/2025 10:45 AM EST Office Visit [facility] [place] [address] [facility] [place] [address] Jose Manuel Seth MD [address] [place] [address] [place] [phone] documented as of this encounter Visit Diagnoses Not on filedocumented in this encounter Care Teams Bulb Filler Relationship Specialty Start Date End Date Jerome Fan [address] [place] [address] PCP - General Internal Medicine 08/17/24 documented as of this encounter
--- OUTSIDE RECORDS SUMMARY | 2025-07-10 12:19 | XMS_ITS | Encounter Summary ---
Author Organization [employer] Address [address] [place] [address] [place] [address] Care Team Providers Care Senior Qa Analyst Name Role Phone Jerome Esqueda MD Primary Care Prov ider Reason for Visit * Reason Onset Date Comments PT1 11/17/2022 Encounter Details Date Type Department Care Team ([facility] st Contact Info) Description 11/17/2022 Telephone [facility] CHC MED & PEDS [address] [place], [place] [phone] Jerome Esqueda MD [address] [place] [address] PT1 Social History Tobacco Use Types Packs/Day Years Used Date Smoking Tobacco: Never Assessed Comments Unknown Sex and Gender Information Value Date Recorded Sex Assigned at Female 08/09/2022 10:36 AM EDT Legal Sex Female 10:36 AM EDT Gender Identity Female 08/09/2022 10:36 AM EDT Sexual Orientation Straight 08/09/2022 10 :36 AM EDT COVID-19 Exposure Response Date Recorded In the last 10 days, have yo u been in contact with someone who was confirmed or suspected to have Coronavirus/COVID-19? No / Unsure 11/08/2022 2:46 PM EST documented as of this encounter Miscellaneous Notes * Telephone Encounter - Darryl Miller - 11/17/2022 2:16 PM EST Tc from pt requesting a PT1 PT1 Name of facility: [facility] Specialty: Both Left and Right Foot Location: [address], [place] [address] Date: 01-19-2023 Time: 1:45 pm fax: [phone] wheelchair: n/a Polishing Wheel Setter: n/a documented in this encounter Plan of Treatment Upcoming Encounters Date Type Department Care Team (Late st Contact Info) Description 08/14/2025 2:00 PM EST Telemedicine [facility] MED & PEDS 505 [place] [address] Jerome Esqueda MD [address] [place] [address] documented as of this encounter Visit Diagnoses Not on filedocumented in this encounter Care Teams Senior Qa Analyst Relationship Specialty Start Date End Date Jerome Esqueda MD [address] [place] [address] PCP - General Internal Medicine 12/04/19 documented as of this encounter
--- OUTSIDE RECORDS SUMMARY | 2025-07-10 12:19 | XMS_ITS | Encounter Summary ---
Author Organization [employer] Address [address] [facility] 7 [place] [address] Care Team Providers Care Visiting Teacher Name Role Phone Jerome Esqueda MD Primary Care Prov ider Reason for Visit * Reason Onset Date Comments PT1 11/02/2023 Encounter Details Date Type Department Care Team ([facility] st Contact Info) Description 11/02/2023 Telephone [facility] CHC MED & PEDS 505 [place], [place] [phone] Jerome Esqueda MD [address] [place] [address] PT1 Social History Tobacco Use Types Packs/Day [...] encounter Miscellaneous Notes * Telephone Encounter - Lavinia Blood - 11/02/2023 3:40 PM EST TC to patient and informed her she doesn't qualify for transportation through . * Telephone Encounter - Winnie Urrutia - 11/02/2023 11:24 AM EST PT1 needed Date: 01/31 Time: 10 AM Visits: n/a [facility] [address] [facility] Facility[facility] Chair: no Non Profit Financial Controller Needed: n/a Home address confirmed: [address], [address] [facility] documented in this encounter Plan of Treatment Upcoming Encounters Date Type Department Care Team (Late st Contact Info) Description 08/14/2025 2:00 PM EST Telemedicine [facility] CHC MED & PEDS [address] [place] [address] Jerome Esqueda MD [address] [place] [address] documented as of this encounter Visit Diagnoses Not on filedocumented in this encounter Additional Health Concerns Assessment Noted Time PHQ-9 Depression Total Score: 1 05/16/20 23 1:21 PM EDT documented as of this encounter Care Teams Visiting Teacher Relationship Specialty Start Date End Date Jerome Esqueda MD 505 [place] [address] PCP - General Internal Medicine 12/04/19 documented as of this encounter
--- OUTSIDE RECORDS SUMMARY | 2025-07-10 12:19 | XMS_ITS | Encounter Summary ---
Author Organization [facility] Address [address] [place] [address] [place] [address] Care Team Providers Care Non Ferrous Material Handler Name Role Phone Jerome Esqueda MD Primary Care Prov ider Reason for Visit * Reason Onset Date Comments Pt1 04/15/2023 Encounter Details Date Type Department Care Team ([facility] st Contact Info) Description 04/15/2023 Telephone [facility] CHC MED & PEDS 505 [place], [place] [phone] Jerome Esqueda MD 505 [place] [address] Pt1 Social History Tobacco Use Types Packs/Day Years [...] * Telephone Encounter - Lavinia Blood - 04/18/2023 10:24 AM EDT PT-1 submitted for patient. They will receive a letter of approval or denial in the mail. * Telephone Encounter - Darryl Oquendo Miller - 04/15/2023 12:22 PM EDT Tc from pt requesting a PT1 Form: Name of facility: [facility] Dental Specialty: Dental Apt Location: [address] [place] [address] Date: 05/13/2023 Time: 11:30 am fax: n/a wheelchair: no Hot Roller: no Visits: 1 Please contact pt at [phone] documented in this encounter Plan of Treatment Upcoming Encounters Date Type Department Care Team (Late st Contact Info) Description 08/14/2025 2:00 PM EST Telemedicine [facility] MED & PEDS 505 [place] [address] Jerome Esqueda MD 505 [place] [address] documented as of this encounter Visit Diagnoses Not on filedocumented in this encounter Care Teams Non Ferrous Material Handler Relationship Specialty Start Date End Date Jerome Esqueda MD [address] [place] [address] PCP - General Internal Medicine 12/04/19 documented as of this encounter
--- OUTSIDE RECORDS SUMMARY | 2025-07-10 12:19 | XMS_ITS | Encounter Summary ---
Author Organization [employer] Address [address] [facility] 7 [place] [address] Care Team Providers Care Soccer Coach Name Role Phone Jerome Esqueda MD Primary Care Prov ider Reason for Visit * Reason Onset Date Comments Referral 12/12/2024 Encounter Details Date Type Department Care Team ([facility] st Contact Info) Description 12/12/2024 Telephone [facility] MEDICINE [address] [place] [address] Jerome Esqueda MD 505 [place] [address] Referral Social History Tobacco Use Types Packs/Day Years [...] encounter Miscellaneous Notes * Telephone Encounter - Torres Chadwick - 12/12/2024 1:35 PM EST TC from pt requesting a new Referral for podiatry due to Old Chairman & Chief Executive Officer Dying. Pt would like to seeif there are any in [place] or somewhere close to her. Contact pt at [phone] documented in this encounter Plan of Treatment Upcoming Encounters Date Type Department Care Team (Late st Contact Info) Description 08/14/2025 2:00 PM EST Telemedicine [facility] CHC MED & PEDS [address] [place] [address] Jerome Esqueda MD [address] [place] [address] documented as of this encounter Visit Diagnoses Not on filedocumented in this encounter Additional Health Concerns Assessment Noted Time PHQ-9 Depression Total Score: 1 05/16/20 23 1:21 PM EDT documented as of this encounter Care Teams Soccer Coach Relationship Specialty Start Date End Date Jerome Esqueda MD [address] [place] [address] PCP - General Internal Medicine 12/04/19 documented as of this encounter
--- OUTSIDE RECORDS SUMMARY | 2025-07-10 12:19 | XMS_ITS | Clinical Summary ---
Author Organization [facility] Address [address] [place] [address] Care Team Providers Care Installation Helper Name Role Phone Yanna Min MD Primary Care Provider [phone] Social History Tobacco Use Types Packs/Day Years Used Date Smoking Tobacco: Never Assessed Comments Unknown Sex and Gender Information Value Date Recorded Sex Assigned at Female 12/10/2022 2:42 PM EST Legal Sex Female 12:11 PM EST Gender Identity Female 12/10/2022 2:42 PM EST Sexual Orientation Heterosexual (straight) 12/10 2:42 PM EST Plan of Treatment Health Maintenance Due Date Last Done Comments Hepatitis C Virus Screening 1965 HIV Screening 1978 DTaP/Tdap/Td Vaccines (1 - Tdap) 1984 Pneumococcal Vaccines 50+ (1 of 2 - PCV) 1984 Hepatitis B Vaccines (1 of 3 - Risk Dialysis 4-dose series) 1985 Pap Smear (Ages 21-65) 1986 Mammogram 2005 Colonoscopy 2010 Zoster (Shingles) Vaccine (1 of 2) 2015 Influenza Vaccine 05/10/2025 08/03/2016, , 07/31/2014 COVID-19 Vaccine (2024- 6 season) 2025 02/13/2022, 08/13/2021, 11/20/2020, Additional history exists Insurance MEDICAID OUT OF STATE [facility] [place] [address] Care Teams Installation Helper Relationship Specialty Start Date End Date Yanna Min MD [address] [facility] [address] [place] [address] PCP - General Internal Medicine 08/18/22
--- OUTSIDE RECORDS SUMMARY | 2025-07-10 12:19 | XMS_ITS | Encounter Summary ---
Author Organization [employer] Address [address] [place] [address] 7 [place] [address] Care Team Providers Care Pharmacy Billing Adjudicator Name Role Phone Jerome Esqueda MD Primary Care Prov ider Reason for Visit * Reason Onset Date Comments letter 09/10/2024 Encounter Details Date Type Department Care Team ([facility] Contact Info) Description 09/10/2024 Telephone [facility] CHC MED & PEDS [address] [place], [place] [phone] Jerome Esqueda MD 505 [place] [address] letter Social History Tobacco Use Types Packs/Day Years [...] encounter Miscellaneous Notes * Telephone Encounter - Ashleigh Thomas RN - 09/10/2024 1:35 PM EST TC placed to pt in regards to request for a letter stating that she has diagnosed anxiety. Pt explained in further detail that the apartment complex in which she lives in [place] requires a letter stating she has anxiety in order to keep a therapy/help dog. The pt is currently on both Zoloft and Ambien as prescribed by PCP. Pt has also been more anxious of late due to upcoming surgery on09/26 due to a broken wrist to adjust plates and screws. * Telephone Encounter - Helga Hay - 09/10/2024 9:18 AM EST Tc from pt requesting a call back in regards getting a letter stating she has anxiety. Please call pt to clarify. documented in this encounter Plan of Treatment Upcoming Encounters Date Type Department Care Team (Late st Contact Info) Description 08/14/2025 2:00 PM EST Telemedicine [facility] CHC MED & PEDS [address] [place] [address] Jerome Esqueda MD 505 [place] [address] documented as of this encounter Visit Diagnoses Not on filedocumented in this encounter Additional Health Concerns Assessment Noted Time PHQ-9 Depression Total Score: 1 05/16/20 23 1:21 PM EDT documented as of this encounter Care Teams Pharmacy Billing Adjudicator Relationship Specialty Start Date End Date Jerome Esqueda MD [address] [place] [address] PCP - General Internal Medicine 12/04/19 documented as of this encounter
--- OUTSIDE RECORDS SUMMARY | 2025-07-10 12:19 | XMS_ITS | Encounter Summary ---
Author Organization [employer] Address [address] [facility] 7 [place] [address] Care Team Providers Care Front Office Secretary Name Role Phone Jerome Esqueda MD Primary Care Prov ider Reason for Visit * Reason Comments Med Change Request Encounter Details Date Type Department Care Team ([facility] Contact Info) Description 07/26/2023 Refill [facility] CHC MED & PEDS [address] [place], [place] [phone] Jerome Esqueda MD 505 [place] [address] Social History Tobacco Use Types Packs/Day Years [...] Info) Description 08/14/2025 2:00 PM EST Telemedicine [facility] MED & PEDS [address] [place] [address] Jerome Esqueda MD [address] [place] [address] documented as of this encounter Visit Diagnoses Not on filedocumented in this encounter Additional Health Concerns Assessment Noted Time PHQ-9 Depression Total Score: 1 05/16/20 23 1:21 PM EDT documented as of this encounter Care Teams Front Office Secretary Relationship Specialty Start Date End Date Jerome Esqueda MD [address] [place] [address] PCP - General Internal Medicine 12/04/19 documented as of this encounter
--- OUTSIDE RECORDS SUMMARY | 2025-07-10 12:19 | XMS_ITS | Encounter Summary ---
Author Organization [employer] Address [address] [place] [address] Care Team Providers Care Fiberglass Boat Parts Finisher Name Role Phone Jerome Esqueda MD Primary Care Prov ider Reason for Visit * Reason Onset Date Comments pt1 12/22/2022 Encounter Details Date Type Department Care Team (Late st Contact Info) Description 12/22/2022 Telephone [facility] MEDICINE [address] [place] [address] Jerome Esqueda MD [address] [place] [address] pt1 Social History Tobacco Use Types Packs/Day Years Used Date Smoking Tobacco: Never Assessed Comments Unknown Sex and Gender Information Value Date Recorded Sex Assigned at Female 08/09/2022 10:36 AM EDT Legal Sex Female 10:36 AM EDT Gender Identity Female 08/09/2022 10:36 AM EDT Sexual Orientation Straight 08/09/2022 10 :36 AM EDT documented as of this encounter Miscellaneous Notes * Telephone Encounter - Denis Wellington - 12/22/2022 3:08 PM EDT Tc from pt requesting pt1 Location: [address] [place] [address] [place] [address] Specialty: kidney specialist Time: 8:30 am Date: January, , february 22, March 25, April 22, may 20 Motor Tester: no wheelchair accessible : no documented in this encounter Plan of Treatment Upcoming Encounters Date Type Department Care Team (Late st Contact Info) Description 08/14/2025 2:00 PM EST Telemedicine [facility] CHC MED & PEDS [address] [place] [address] Jerome Esqueda MD 505 [place] [address] documented as of this encounter Visit Diagnoses Not on filedocumented in this encounter Care Teams Fiberglass Boat Parts Finisher Relationship Specialty Start Date End Date Jerome Esqueda MD [address] [place] [address] PCP - General Internal Medicine 12/04/19 documented as of this encounter
--- OUTSIDE RECORDS SUMMARY | 2025-07-10 12:19 | XMS_ITS | Encounter Summary ---
Author Organization [employer] Address [address] [facility] 7 [place] [address] Care Team Providers Care Security Intelligence Analyst Name Role Phone Jerome Esqueda MD Primary Care Prov ider Reason for Visit * Reason Onset Date Comments Referral 07/30/2024 FYI 07/30/2024 Encounter Details Date Type Department Care Team ([facility] st Contact Info) Description 07/30/2024 Telephone [facility] MEDICINE [address] [place] [address] Jerome Esqueda MD 505 [place], [place] [phone] Referral; FYI Social History Tobacco Use Types Packs/Day Years [...] Telephone Encounter - Wendy Isaac RN - 07/31/2024 2:23 PM EDT No BRADY listed on file to speak with [employer]. * Telephone Encounter - Richardson Serna - 07/30/2024 3:22 PM EDT Dk Carl at [employer] calling to report patient had a anxiety and depression screening on 07/25 depression was scored at 21 and is listed severe and anxiety was a 14 which is moderate would like a call back at [phone] also if a referral can be put in for home services due to patient having a broken wrist documented in this encounter Plan of Treatment Upcoming Encounters Date Type Department Care Team (Late st Contact Info) Description 08/14/2025 2:00 PM EST Telemedicine [facility] CHC MED & PEDS [address] [place] [address] Jerome Esqueda MD [address] [place] [address] documented as of this encounter Visit Diagnoses Not on filedocumented in this encounter Additional Health Concerns Assessment Noted Time PHQ-9 Depression Total Score: 1 05/16/20 23 1:21 PM EDT documented as of this encounter Care Teams Security Intelligence Analyst Relationship Specialty Start Date End Date Jerome Esqueda MD [address] [place] [address] PCP - General Internal Medicine 12/04/19 documented as of this encounter
--- OUTSIDE RECORDS SUMMARY | 2025-07-10 12:20 | XMS_ITS | Encounter Summary ---
Author Organization [facility], Address [address] [facility] [place] [address] [place] [address] Phone Care Team Providers Care Regulator Assembler Name Role Phone Jerome Fan Primary Care Provider [phone] Encounter Details Date Type Department Care Team (Late st Contact Info) Description 10/19/2024 Documentation Only [facility] [address] [place] [phone] Shazia [place], [place] [address] [place] [address] Social History Tobacco Use Types Packs/Day [...] Telemedicine [facility] [address] [place] [place] [phone] 08/30/2025 10:45 AM EST Office Visit [facility] [address] [place] [phone] Jose Manuel Seth MD [address] [place] [phone] documented as of this encounter Visit Diagnoses Not on filedocumented in this encounter Care Teams Regulator Assembler Relationship Specialty Start Date End Date Jerome Fan [address] [place] [phone] PCP - General Internal Medicine 08/17/24 documented as of this encounter
--- OUTSIDE RECORDS SUMMARY | 2025-07-10 12:20 | XMS_ITS | Encounter Summary ---
Author Organization [facility], Address [address] [place] [address] Phone Care Team Providers Care Car Lot Attendant Name Role Phone Jerome Fan Primary Care Provider [phone] Encounter Details Date Type Department Care Team (Late st Contact Info) Description 08/21/2024 Documentation Only [facility] [address] [place] [address] Maryanne Sarkar Social History Tobacco Use Types Packs/Day Years [...] Telemedicine [facility] [address] [place] [phone] 08/30/2025 10:45 AM EST Office Visit [facility] [address] [place] [phone] Jose Manuel Seth MD [address] [place] [address] [place] [phone] documented as of this encounter Visit Diagnoses Not on filedocumented in this encounter Care Teams Car Lot Attendant Relationship Specialty Start Date End Date Jerome Fan [address] [place] [address] PCP - General Internal Medicine 08/17/24 documented as of this encounter
--- OUTSIDE RECORDS SUMMARY | 2025-07-10 12:20 | XMS_ITS | Encounter Summary ---
Author Organization [facility] [place], Address PO [facility] [address] [place] [address] Phone Care Team Providers Care Bulk Tank Car Unloader Name Role Phone Jerome Fan Primary Care Provider +1 [phone] Encounter Details Date Type Department Care Team (Late st Contact Info) Description 05/07/2024 Documentation Only [facility] [address] [place] [phone] [place] [address] [place] [address] Social History Tobacco Use Types Packs/Day [...] Telemedicine [facility] [address] [place] [phone] 08/30/2025 10:45 AM EST Office Visit [facility] [address] [place] [phone] Jose Manuel Seth MD [address] [place] [address] documented as of this encounter Visit Diagnoses Not on filedocumented in this encounter Care Teams Bulk Tank Car Unloader Relationship Specialty Start Date End Date Jerome Fan [address] [place] [address] [phone] PCP - General Internal Medicine 08/17/24 documented as of this encounter
--- OUTSIDE RECORDS SUMMARY | 2025-07-10 12:20 | XMS_ITS | Clinical Summary ---
Author Organization [facility] Address [address] [address] Phone Care Team Providers Care Authorization Rep Name Role Phone Yanna Min MD Primary Care Provider + Allergies Active Allergy Reactions Criticality Noted Date Comments Sulfamethoxazole-Trimethoprim 2018 Banana 01/04/2019 Chocolate 01/04/2019 Codeine 01/04/2019 Fentanyl 01/04/2019 Ascorbic Acid (Vitamin C) 01/04/2019 citris Iodinated Contrast Media 01/04/2019 Oxycodone-Acetaminophen 01/04/2019 Red Pepper 01/04/2019 roasted Sulfa (Sulfonamide Antibiotics) 12/09 Lisinopril 01/04/2019 Medications cyclosporine (SANDIMMUNE) 25 MG capsuleIndicati ons:2 tabs in am & 3 tabs in pm Take 25 mg by mouth 2 (two) times a day. Indications: 2 tabs in am & 3 tabs in pm Active mycophenolate sodium (MYFORTIC) [address] tabletIndicatio ns:4 tabs 2x day Take by mouth 2 (two) times a day. Indications: 4 tabs 2x day Active atorvastatin (LIPITOR) 10 MG tablet Take 10 mg by mouth daily. Active traZODone (DESYREL) 50 MG tablet Take 50 mg by mouth nightly at bedtime. Active cholecalciferol (VITAMIN D3) 50,000 unit tablet Take by mouth once a week. Active escitalopram oxalate (LEXAPRO) 20 MG tablet Take 20 mg by mouth daily. Active diphenhydrAMINE (BENADRYL) 12.5 mg/5 mL liquid Take by mouth 4 (four) times a day as needed for allergies. Active traMADol (ULTRAM) 50 mg tablet Take 50 mg by mouth every 6 (six) hours as needed for pain (specific location in comments). Active Active Problems No known active problems Social History Tobacco Use Types Packs/Day Years Used Date Smoking Tobacco: Former Cigarettes Smokeless Tobacco: Never Alcohol Use Standard Drinks/Week Comments Yes 0 (1 standard drink = 0.6 oz pur e alcohol) states rare use Education Answer Date Recorded Are you interested in more education? Not on smiley e 02/04/2023 Are you concerned about learning? Not on file 02/04/2023 No 02/04/2023 No 02/04/2023 Digital Access Answer Date Recorded No 03/08/2023 No 03/08/2023 No 03/08/2023 Reliable internet access at home? Not on file 03/08/2023 Device with a working camera? Not on file Comments No Sex and Gender Information Value Date Recorded Sex Assigned at Not on file Legal Sex Female 1:54 PM EST Gender Identity Not on file Sexual Orientation Not on file Last Filed Vital Signs Vital Sign Reading Time Taken Comments Blood Pressure 114/62 01/04/2019 11:00 AM EDT Pulse 80 01/04/2019 11:00 AM EDT Temperature 36.9 C (98.4 F) 01/04/2019 7:00 AM EDT Respiratory Rate 12 01/04/2019 9:45 AM EDT Oxygen Saturation 100% 01/04/2019 11:00 AM EDT Inhaled Oxygen Concentration - - Weight - - Height - - Body Mass Index - - Plan of Treatment Health Maintenance Due Date Last Done Comments CREATININE LEVEL 1965 CYCLOSPORINE LEVEL 1965 LIPID PANEL 1965 DEPRESSION SCREENING 1977 SMOKING Hx and SMOKELESS TOBACCO SCREENING 1978 HEPATITIS C SCREENING 1983 HIV ONE-TIME SCREENING (18-6 5 YEARS) 1983 ZOSTER VACCINES (1 of 2) 1984 PAP SMEAR 1986 MAMMOGRAM 2005 PNEUMOCOCCAL VACCINES (50+ years) (2 of 2 - PCV) 04/18/2008 04/18/2007 COLOGUARD 2010 COLONOSCOPY 2010 COLORECTAL CANCER SCREENING 2010 FIT TEST 2010 FOBT 2010 SIGMOIDOSCOPY 2010 VIRTUAL COLONOSCOPY 2010 COVID-19 VACCINE (3 - Pfizer risk series) 12/18/2020 11/20/2020, 10/30/2020 Adult Td,Tdap Booster 04/05/2021 04/05/2011 INFLUENZA VACCINE (#1) 2025 HEPATITIS A VACCINES Aged Out No long er eligible based on patient's age to complete this topic HIB VACCINES Aged Out No longer eligi ble based on patient's age to complete this topic MENINGOCOCCAL VACCINES (ACWY) Aged Out No longer eligible based on patient's age to complete this topic MENINGOCOCCAL VACCINES (B) Aged Out N o longer eligible based on patient's age to complete this topic Medical Devices Not on file Insurance [place] Reppler [place] Re[place] Reppler [place] [employer] Beauty WorksHEALTH M[employer] Beauty WorksHEALTH M[employer] Beauty WorksHEALTH MCO Care Teams Authorization Rep Relationship Specialty Start Date End Date Yanna Min MD [address] [place] [address] PCP - General 01/03/19 Additional Source Comments The information contained in this document represents components of the legal health record. It is not the complete legal health record.[facility]
--- OUTSIDE RECORDS SUMMARY | 2025-07-10 12:20 | XMS_ITS | Encounter Summary ---
Author Organization [facility] [place], Address [address] [place] [address] Phone Care Team Providers Care Abstract Writer Name Role Phone Jerome Fan Primary Care Provider +1 [phone] Encounter Details Date Type Department Care Team (Late st Contact Info) Description 04/03/2025 Documentation Only [facility] [address] [place] [phone] [facility] [address] [place] [address] Social History Tobacco Use Types [...] Telemedicine [facility] [address] [place] [phone] 08/30/2025 10:45 AM EST Office Visit [facility] [address] [place] [phone] Jose Manuel Seth MD [address] [place] [phone] documented as of this encounter Visit Diagnoses Not on filedocumented in this encounter Care Teams Abstract Writer Relationship Specialty Start Date End Date Jerome Fan [address] [place] [address] [phone] PCP - General Internal Medicine 08/17/24 documented as of this encounter
--- OUTSIDE RECORDS SUMMARY | 2025-07-10 12:20 | XMS_ITS | Encounter Summary ---
Author Organization [facility] Address [address] [place] [address] Phone Care Team Providers Care Store Warehouse Associate Name Role Phone Jerome Fan Primary Care Provider + [phone] Reason for Visit * Reason Comments Med Refill Encounter Details Date Type Department Care Team (Late st Contact Info) Description 12/13/2022 Refill [facility] [address] [place] [phone] Pete Loya MD Social History Tobacco Use Types Packs/Day Years [...] on file documented as of this encounter Miscellaneous Notes * Telephone Encounter - Kristian Sargent MD - 12/13/2022 2:40 PM EST Medication refused due to failing protocol. Requested Prescriptions Pending Prescriptions Disp Refills ??? loratadine (CLARITIN) 10 MG tablet [Pharmacy Med Name: LORATADINE 10 MG TABS 10 Tablet] 30 tablet 3 Sig: TAKE 1 TABLET BY MOUTH DAILY Non-sedating Antihistamines Protocol Passed - 12/13/2022 10:47 AM Passed - Visit with authorizing provider in past 18 or upcoming 6 months ??? Allergy Relief Childrens 12.5 MG/5ML liquid [Pharmacy Med Name: ALLERGY RELIEF CHILDRENS 12 12.5 Liquid] 420 mL 6 Sig: TAKE ONE TEASPOONFUL BY MOUTH THREE TIMES A DAY There is no refill protocol information for this order documented in this encounter Plan of Treatment Upcoming Encounters Date Type Department Care Team (Late st Contact Info) Description 08/07/2025 2:00 PM EDT Telemedicine [facility] [address] [place] [address] 08/30/2025 10:45 AM EST Office Visit [facility] [address] [place] [phone] Jose Manuel Seth MD [address] [place] [address] Dr. [place] [phone] documented as of this encounter Visit Diagnoses Not on filedocumented in this encounter Care Teams Store Warehouse Associate Relationship Specialty Start Date End Date Jerome Fan [address] [place] [address] PCP - General Internal Medicine 08/17/24 documented as of this encounter
--- OUTSIDE RECORDS SUMMARY | 2025-07-10 12:20 | XMS_ITS | Encounter Summary ---
Author Organization [facility] Address [address] [place] [address] Phone Care Team Providers Care Gate Clerk Name Role Phone Jerome Fan Primary Care Provider + [phone] Encounter Details Date Type Department Care Team (Late st Contact Info) Description 01/27/2023 Telephone [facility] [address] [facility] [address] [place] [phone] Lanny Hernandez Social History Tobacco Use Types Packs/Day Years [...] encounter Miscellaneous Notes * Telephone Encounter - Randy Zayas RN - 02/01/2023 3:29 PM EDT sent * Telephone Encounter - Lanny Serna - 02/01/2023 12:44 PM EDT Transplant pt, fwd to randy * Telephone Encounter - Lanny Hernandez - 01/27/2023 2:24 PM EDT BS infusion called to relay that this PT who is getting a Belatacept Infusion, needs a Anaphylaxis sheet to be faxed to their office. Please advise. documented in this encounter Plan of Treatment Upcoming Encounters Date Type Department Care Team (Late st Contact Info) Description 08/07/2025 2:00 PM EDT Telemedicine [facility] [address] [place] [address] 08/30/2025 10:45 AM EST Office Visit [facility] [address] [place] [address] Jose Manuel Seth MD [address] [place] [address] Dr. [place] [address] documented as of this encounter Visit Diagnoses Not on filedocumented in this encounter Care Teams Gate Clerk Relationship Specialty Start Date End Date Jerome Fan [address] [place] [address] PCP - General Internal Medicine 08/17/24 documented as of this encounter
--- OUTSIDE RECORDS SUMMARY | 2025-07-10 12:20 | XMS_ITS | Encounter Summary ---
Author Organization [facility] Address [address] [place] [address] Phone Care Team Providers Care Dietetic Technician Registered Name Role Phone Yanna Min MD Primary Care Provider + Encounter Details Date Type Department Care Team (Late st Contact Info) Description 01/04/2019 Procedure Pass [facility] [address] [place] [address] Social History Tobacco Use Types Packs/Day Years Used Date Smoking Tobacco: Former Cigarettes Smokeless Tobacco: Never Alcohol Use Standard Drinks/Week Comments Yes 0 (1 standard drink = 0.6 oz pur e alcohol) states rare use Comments No Sex and Gender Information Value Date Recorded Sex Assigned at Not on file Legal Sex Female 1:54 PM EST Gender Identity Not on file Sexual Orientation Not on file documented as of this encounter Plan of Treatment Not on file documented as of this encounter Visit Diagnoses Not on filedocumented in this encounter Care Teams Dietetic Technician Registered Relationship Specialty Start Date End Date Yanna Min MD [address] [place] [address] PCP - General 01/03/19 documented as of this encounter Additional Source Comments The information contained in this document represents components of the legal health record. It is not the complete legal health record.[facility]
--- OUTSIDE RECORDS SUMMARY | 2025-07-10 12:20 | XMS_ITS | Encounter Summary ---
Author Organization [facility] Address [facility] [address] [place] [address] Phone Care Team Providers Care Tractor Trailer Truck Driver Name Role Phone Jerome Fan Primary Care Provider + [phone] Reason for Visit * Reason Comments Med Refill Encounter Details Date Type Department Care Team (Late Contact Info) Description 08/21/2024 Refill [facility] [address] [place] [phone] Jose Manuel Steh MD [address] [place] [address] [place] [phone] Insomnia, not otherwise specified Social History Tobacco Use Types Packs/Day Years [...] Encounters Date Type Department Care Team (Late Contact Info) Description 08/07/2025 2:00 PM EDT Telemedicine [facility] [address] [place] [phone] 08/30/2025 10:45 AM EST Office Visit [facility] [address] [place] [phone] Jose Manuel Seth MD [address] [place] [address] documented as of this encounter Visit Diagnoses Diagnosis Insomnia, not otherwise specified documented in this encounter Care Teams Tractor Trailer Truck Driver Relationship Specialty Start Date End Date Jerome Fan [address] [place] [phone] PCP - General Internal Medicine 08/17/24 documented as of this encounter
--- OUTSIDE RECORDS SUMMARY | 2025-07-10 12:20 | XMS_ITS | Encounter Summary ---
Author Organization [facility] [place], Address [address] [facility] [address] [place] [address] Phone Care Team Providers Care Family Service Counselor Name Role Phone Jerome Fan Primary Care Provider [phone] Encounter Details Date Type Department Care Team (Late st Contact Info) Description 11/05/2024 Documentation Only [facility] [address] [place] [address] [place] [address] [place] [address] Social History Tobacco Use Types [...] Telemedicine [facility] [address] [place] [phone] 08/30/2025 10:45 AM EST Office Visit [facility] [address] [place] [phone] Jose Manuel Seth MD [address] [place] [place] [address] documented as of this encounter Visit Diagnoses Not on filedocumented in this encounter Care Teams Family Service Counselor Relationship Specialty Start Date End Date Jerome Fan [address] [place] [address] [phone] PCP - General Internal Medicine 08/17/24 documented as of this encounter
--- OUTSIDE RECORDS SUMMARY | 2025-07-10 12:20 | XMS_ITS | Encounter Summary ---
Author Organization [facility] [place], Address PO [facility] [address] [place] [address] Phone Care Team Providers Care Senior Java Ui Developer Name Role Phone Jerome Fan Primary Care Provider [phone] Encounter Details Date Type Department Care Team (Late st Contact Info) Description 06/06/2024 Documentation Only [facility] [address] [place] [phone] [place], [place] [address] [place] [address] Social History Tobacco Use Types [...] Telemedicine [facility] [address] [place] [address] 08/30/2025 10:45 AM EST Office Visit [facility] [address] [place] [address] Jose Manuel Seth MD [address] [place] [phone] documented as of this encounter Visit Diagnoses Not on filedocumented in this encounter Care Teams Senior Java Ui Developer Relationship Specialty Start Date End Date Jerome Fan [address] [place] [address] [phone] PCP - General Internal Medicine 08/17/24 documented as of this encounter
--- OUTSIDE RECORDS SUMMARY | 2025-07-10 12:20 | XMS_ITS | Encounter Summary ---
Author Organization [facility] Address [facility] [address] [place] [address] Phone Care Team Providers Care Railroad Watchman Name Role Phone Jerome Fan Primary Care Provider + [phone] Reason for Visit * Reason Comments Med Refill Encounter Details Date Type Department Care Team (Late Contact Info) Description 02/06/2025 Refill [facility] [address] [place] [phone] Jose Manuel Seth MD [address] [place] [address] [place] [phone] Insomnia, not otherwise specified Social History Tobacco [...] Telemedicine [facility] [address] [place] [phone] 08/30/2025 10:45 AM EST Office Visit [facility] [address] [place] [phone] Jose Manuel Seth MD [address] [place] [address] documented as of this encounter Visit Diagnoses Diagnosis Insomnia, not otherwise specified documented in this encounter Care Teams Railroad Watchman Relationship Specialty Start Date End Date Jerome Fan [address] [place] [address] [phone] PCP - General Internal Medicine 08/17/24 documented as of this encounter
--- OUTSIDE RECORDS SUMMARY | 2025-07-10 12:20 | XMS_ITS | Encounter Summary ---
Author Organization [facility] Address [address] [facility] [address] [place] [address] Phone Care Team Providers Care Volleyball Assembler Name Role Phone Yanna Min MD Primary Care Provider + Encounter Details Date Type Department Care Team (Late st Contact Info) Description 01/03/2019 Ancillary Orders [facility] Interventional Rad [address] [place] [address] Danis Lange MD, MIMI [address] [place] [address] [email or web address] [place] Social History Tobacco Use Types Packs/Day Years Used Date Smoking Tobacco: Never Assessed Comments Unknown Sex and Gender Information Value Date Recorded Sex Assigned at Not on file Legal Sex Female 1:54 PM EST Gender Identity Not on file Sexual Orientation Not on file documented as of this encounter Plan of Treatment Not on file documented as of this encounter Results * CT Biopsy Lung (Right) (01/04/2019 9:15 AM EDT) Narrative SYSTEMGENERATED, DOCUMENTATION - 01/04/2019 9:15 AM EDT This procedure was used for CT image guidance only and not interpreted by a provider. Please refer to associated case for complete documentation. Danis Lange MD, MIMI IMG IR THORACIC Final Result documented in this encounter Visit Diagnoses Diagnosis Mass Localized superficial swelling, mass, or lump Mass Localized superficial swelling, mass, or lump documented in this encounter Care Teams Volleyball Assembler Relationship Specialty Start Date End Date Yanna Min MD [address] [place] [address] PCP - General 01/03/19 documented as of this encounter Additional Source Comments The information contained in this document represents components of the legal health record. It is not the complete legal health record.[facility]
--- OUTSIDE RECORDS SUMMARY | 2025-07-10 12:20 | XMS_ITS | Encounter Summary ---
Author Organization [facility] Address [address] [facility] [address] [place] [address] Phone Care Team Providers Care Customer Servicer Name Role Phone Jerome Fan Primary Care Provider + [phone] Reason for Visit * Reason Comments Med Refill Encounter Details Date Type Department Care Team (Late st Contact Info) Description 10/21/2023 Refill [facility] [address] [facility] [address] [place] [phone] Elsy Pond MD Social History Tobacco Use Types Packs/Day [...] Telemedicine [facility] [address] [place] [address] 08/30/2025 10:45 AM EST Office Visit [facility] [address] [place] [address] Jose Manuel Seth MD [address] [place] [address] [place] [phone] documented as of this encounter Visit Diagnoses Not on filedocumented in this encounter Care Teams Customer Servicer Relationship Specialty Start Date End Date Jerome Fan: [phone] [place], [place] [address] [place] [address] PCP - General Internal Medicine 08/17/24 documented as of this encounter
--- OUTSIDE RECORDS SUMMARY | 2025-07-10 12:20 | XMS_ITS | Encounter Summary ---
Author Organization [facility] [place], Address [address] [facility] [address] [place] [address] Phone Care Team Providers Care Engraving Patternmaker Name Role Phone Jerome Fan Primary Care Provider +[phone] Encounter Details Date Type Department Care Team (Late st Contact Info) Description 09/13/2024 Documentation Only [facility] [address] [place] [phone] [place], [place] [address] [place] [address] Social History Tobacco Use Types [...] Telemedicine [facility] [address] [place] [phone] 08/30/2025 10:45 AM EST Office Visit [facility] [address] [place] [phone] Jose Manuel Seth MD [address] [place] [phone] documented as of this encounter Visit Diagnoses Not on filedocumented in this encounter Care Teams Engraving Patternmaker Relationship Specialty Start Date End Date Jerome Fan [address] [place] [address] [phone] PCP - General Internal Medicine 08/17/24 documented as of this encounter
--- OUTSIDE RECORDS SUMMARY | 2025-07-10 12:20 | XMS_ITS | Clinical Summary ---
Author Organization [facility], Address [address] [place] [address] Phone Care Team Providers Care Office Machine Technician Name Role Phone FanJerome morrow Primary Care Provider [phone] Allergies Active Allergy Reactions Criticality Noted Date Comments Ascorbate 01/04/2019 citris Banana 07/28/2022 Other reaction(s): itchy feeling Chocolate Other (see comments) 01/04/2019 Other reaction(s): n/v Chocolate Flavoring Agent (Non-Screening) 01/12/2021 Codeine Hives 01/04/2019 Iodinated Contrast Media Other (see comments) 01/12/2021 Hives and vomiting Fentanyl Other (see comments) 01/12/2021 Lisinopril Other (see comments) 10/10/1999 Morphine Other (see comments) 01/12/2021 Other Swelling 01/12/2021 Debbie, limes, oranges, red peppers, bananas , all citrus fruits (mouth swelling, anaphylaxis) Oxycodone-Acetaminophe n Other (see comments) 01/12/2021 Prednisone Nausea,Vomiting Medium 07/29/2022 Pt reports that Prednisone IV was given at previous procedure at Dr Lange's office and experienced n/v Sulfa Antibiotics Other (see comments) 01/12/2021 Sulfamethoxazole-Trime thoprim Other (see comments) 01/12/2021 Acetaminophen-Codeine 01/12/2021 Vancomycin Other (see comments) 01/12/2021 Medications famotidine (PEPCID) 20 MG tablet Take 1 tablet (20 mg total) by mouth 1 (one) time each day 30 tablet 11 021 Active diphenhydrAMINE (BENADRYL) 25 MG capsule Take 25 mg by mouth if needed 022 Active acetaminophen (TYLENOL) 325 MG tablet TAKE 1 TO 2 TABLETS BY MOUTH FOUR TIMES A DAY NEEDED FOR PAIN - DO NOT EXCEED 12 TABLETS/24 HOURS 022 Active Aspirin Low Dose 81 MG EC tablet TAKE ONE TABLET BY MOUTH ONCE DAILY 90 tablet 3 023 Active sertraline (ZOLOFT) 25 MG tabletIndications:Baljeet g-term drug therapy Take 1 tablet (25 mg total) by mouth 1 (one) time each day 30 tablet 11 023 Active amoxicillin (AMOXIL) 500 MG capsuleIndications:Ki dney transplant status Take 2 capsules (1,000 mg total) by mouth 1 (one) time if needed (TAKE TWO CAPSULES ONE HOUR PRIOR TO EACH DENTAL PROCEDURE) for up to 3 doses 6 capsule 023 Active losartan (Cozaar) 50 MG tabletIndications:Hyp ertension Take 1 tablet (50 mg total) by mouth 1 (one) time each day 90 tablet 3 024 2024 Active loratadine (CLARITIN) 10 MG tabletIndications:Baljeet g-term drug therapy Take 1 tablet (10 mg total) by mouth if needed for allergies 90 tablet 3 024 2024 Active ergocalciferol 1.25 MG (48152 UT) capsuleIndications:Te rtiary hyperparathyroidism (HCC) TAKE 1 CAPSULE (50,000 UNITS TOTAL) BY MOUTH 1 (ONE) TIME PER WEEK 12 capsule 3 024 Active predniSONE (DELTASONE) 2.5 MG tabletIndications:Kid magnolia transplant status TAKE 2 TABLETS BY MOUTH 1 TIME EACH DAY 60 tablet 11 025 Active atorvastatin (LIPITOR) 10 MG tabletIndications:Dys lipidemia TAKE ONE TABLET BY MOUTH ONCE DAILY 90 tablet 3 025 Active furosemide (LASIX) 40 MG tabletIndications:Kid magnolia transplant status TAKE ONE TABLET BY MOUTH ONCE DAILY 90 tablet 3 025 Active zolpidem (AMBIEN) 5 MG tabletIndications:Ins omnia, not otherwise specified Take 1 tablet (5 mg total) by mouth at night if needed for sleep 30 tablet 5 Active Belatacept 250 MG reconstituted solution Infuse 5 mg/kg into a venous catheter every 28 (twenty-eigh t) days Infuse 5mg/kg IV every 28 days; pt weight as of 03/01/25 99.8 kg 3 each 11 Active mycophenolate (MYFORTIC) 180 MG EC tablet Take 4 tablets (720 mg total) by mouth in the morning and 4 tablets (720 mg total) in the evening. 720 tablet 3 025 2025 Active Tirzepatide-Weight Management (Zepbound) 7.5 MG/0.5ML solution auto-injector Inject 7.5 mg under the skin per week Dose increase Dx code e66.9 2 mL 5 Active levETIRAcetam (KEPPRA) 500 MG tabletIndications:Sei zure, not otherwise specified (HCC) TAKE 1 TABLET (500 MG TOTAL) BY MOUTH IN THE MORNING AND 1 TABLET (500 MG TOTAL) IN THE EVENING. 180 tablet 3 025 2025 Active sodium bicarbonate 650 MG tablet Take 1 tablet (650 mg total) by mouth in the morning and 1 tablet (650 mg total) in the evening. 60 tablet 025 2025 Active potassium chloride (KLOR-CON M20) 20 MEQ CR tablet Take 1 tablet (20 mEq total) by mouth 1 (one) time each day Do not crush or chew. 30 tablet 11 025 2025 Active levETIRAcetam (KEPPRA) 500 MG tabletIndications:Sei zure, not otherwise specified (HCC) Take 1 tablet (500 mg total) by mouth in the morning and 1 tablet (500 mg total) in the evening. 180 tablet 3 024 2024 Discontinued Tirzepatide-Weight Management (Zepbound) 5 MG/0.5ML solution auto-injector Inject 5 mg under the skin per week Dx code e66.9 Transition from wegovy to zepbound 2 mL 3 025 2024 Discontinued Active Problems Problem Noted Date Diagnosed Date Personal history of immunosuppression therapy Focal segmental glomerulosclerosis 02/23/2023 Stage 3b chronic kidney disease 08/11/2022 History of colectomy 07/29/2022 Obese class I 07/29/2022 Kidney transplant status 07/22/2022 Anemia in chronic kidney disease 07/22/2022 Acid reflux 04/14/2018 Essential hypertension 04/14/2018 Gout 04/14/2018 Hyperlipidemia 04/14/2018 Hyperparathyroidism due to renal insufficiency 0 04/14/2018 Mantoux: positive 04/14/2018 Resolved Problems Problem Noted Date Diagnosed Date Resolved Date Laryngitis 06/01/2023 07/11/2024 Abnormal findings on diagnos tic imaging of lung 02/25/2023 07/11/2024 Overview (03/23/2023): Last Assessment & Plan: Patient has hx of effusion, chest tube and talc pleurodesis, lung ct from 07/31 and chest xray showed iatrogenic changes, no nodules seen, discussed results with patient, she does have a lung biopsy done in 2019 which is not the chart, will request results, for now recommended observation. History of renal transplant 01/26/2023 06/01/2023 Other proteinuria 01/20/2023 07/11/2024 Seizure 01/20/2023 07/11/2024 Dyspnea 12/08/2022 07/11/2024 Edema 12/08/2022 07/11/2024 Murmur 12/08/2022 07/11/2024 Acute nontraumatic kidney injury 08/11/2022 01/20/2023 Atypical ductal hyperplasia of breast 07/29/2022 07/11/2024 Cerebrovascular accident 07/29/202211/2023 Hemorrhoids without complication 07/29/2022 07/11/2024 History of thyroidectomy 07/29/202211/2023 History of syncope 07/29/2022 Lactic acidosis 07/29/2022 07/11/2024 Kidney transplant failure 07/22/2022 Gastrointestinal hemorrhage 03/24/2021 07/11/2024 Chronic hypotension 10/07/2020 09/09/20 22 Acquired deformity of pelvis 05/08/2019 07/11/2024 Total nephrectomy 05/08/2019 07/11/2024 Depressive disorder 01/01/2019 07/11/20 24 Bilateral carpal tunnel syndrome 04/14/2018 07/11/2024 Chronic nephritic syndrome 04/14/2018 1 Colectomy 04/14/2018 07/11/2024 Dependence on hemodialysis d ue to end stage renal disease 04/14/2018 09/09/2022 Diastolic dysfunction 04/14/20182023 Graft rejection 04/14/2018 07/11/2024 Deep venous thrombosis 04/14/201807/11 H/O: depression 04/14/2018 07/11/2024 History of reduction of breast 04/14/2018 07/11/2024 Hypertensive heart and renal disease with (congestive) heart failure 04/14/2018 07/11/2024 Hypoalbuminemia 04/14/2018 09/09/2022 Iron deficiency anemia 04/14/201809/09 Lymphocele after surgical procedure 04/14/2018 07/11/2024 Repair of umbilical hernia 04/14/2018 1 Superficial injury of abdomi nal wall with infection 04/14/2018 07/11/2024 End stage renal failure on dialysis 06/25/2014 09/09/2022 Encounters Date Type Department Care Team Description 07/04/2025 11:15 AM EDT Office Visit [facility] [address] [place] [address] Jose Manuel Seth MD Kidney transplant status (Primary Dx); Personal history of immunosuppression therapy; Type 2 diabetes mellitus with diabetic chronic kidney disease (HCC); Stage 3b chronic kidney disease (HCC); Focal segmental glomerulosclerosis; Hypertension 06/24/2025 Telephone [facility] [address] [place] [address] Shazia Gustafson MA 06/22/2025 Refill [facility] [address] [place] [address] Dorinda, Jose Manuel, MD Seizure, not otherwise specified (HCC) 06/17/2025 Orders Only [facility] [address] [place] [address] Shazia Gustafson MA Type 2 diabetes mellitus with diabetic chronic kidney disease (HCC) (Primary Dx); Kidney transplant status; Personal history of immunosuppression therapy; Stage 3b chronic kidney disease (HCC); Focal segmental glomerulosclerosis; Persistent proteinuria; Other iron deficiency anemia; Other specified hypoparathyroidism (HCC); Albuminuria, not otherwise specified 06/12/2025 1:30 PM EDT Clinical Support [facility] [address] [place] [address] Tenisha Herrera [facility] Type 2 diabetes mellitus with diabetic chronic kidney disease (HCC) (Primary Dx) 05/20/2025 Telephone [facility] [address] [place] [address] Mey Aj RN 05/02/2025 4:00 PM EDT Clinical Support [facility] [address] [place] [address] Kena Reyna FNP-C Kidney transplant status (Primary Dx); Personal history of immunosuppression therapy; Stage 3b chronic kidney disease (HCC) 05/01/2025 11:30 AM EDT Telemedicine [facility] [address] [place] [address] 04/29/2025 Telephone [facility] [address] [place] [address] Hannah Stout 04/24/2025 Refill [facility] [address] [place] [address] Jose Manuel Seth MD 04/22/2025 Orders Only [facility] [address] [place] [address] Shazia Gustafson MA Kidney transplant status (Primary Dx); Personal history of immunosuppression therapy; Stage 3b chronic kidney disease (HCC); Other iron deficiency anemia; Other specified hypoparathyroidism (HCC); Albuminuria, not otherwise specified 04/16/2025 Refill [facility] [address] [place] [address] Mey Aj RN from Last 3 Months Immunizations Immunization Administration Dates Next Due Influenza, Quadrivalent, Wit h Preservative 08/29/2017,08/03/2016 Influenza, Unspecified 10/01/2022,2020,08/03/2016,07/25,07/31/2014 Pfizer SARS-COV-2 02/13/2022,,11/20/2020,10/30 Pneumococcal Polysaccharide 04/18/2007 SARS-CoV-2, Unspecified 2022 Shingrix 07/07/2022,03/12/2022 Tdap 04/05/2011 Family History Medical History Relation Comments Heart disease Father HEART ATTACK Relation Status Comments Father Unknown Mother Alive Social History Tobacco Use Types Packs/Day Years [...] Sign Reading Time Taken Comments Blood Pressure 122/81 05/02/2025 4:17 PM EDT Pulse 77 05/02/2025 4:17 PM EDT Temperature 36.2 C (97.2 F) 07/29/2022 9:38 AM EDT Respiratory Rate 16 07/29/2022 9:38 AM EDT Oxygen Saturation 98% 01/11/2024 10:04 AM EDT Inhaled Oxygen Concentration - - Weight 99.8 kg (220 lb) 03/01/2025 10:40 AM EDT Height 157.5 cm (5' 2 ) 10/19/2024 9:02 AM EST Body Mass Index 40.24 10/19/2024 9:02 AM EST Plan of Treatment Upcoming Encounters Date Type Department Care Team (Late st Contact Info) Description 08/07/2025 2:00 PM EDT [facility]icine [facility] [address] [place] [address] 08/30/2025 10:45 AM EST Office Visit [facility] [address] [place] [address] Jose Manuel Seth MD [address] [place] [address] [place] [address] Health Maintenance Due Date Last Done Comments Breast Cancer Screening 1965 Hepatitis B Vaccine (1 of 3 - 19+ 3-dose series) 1984 Pneumococcal Vaccine: 50+ Ye ars (2 of 2 - PCV) 04/18/2008 04/18/2007 Colonoscopy (Post-Transplant Patient) 04/01/2022 Mammogram (Post-Transplant Patient) 04/01/2022 Pelvic Exam (Post-Transplant Patient) 04/01/2022 Diabetes: Ophthalmology Exam 03/01/2025 Diabetes: Pedal Pulse Checked 03/01/2025 Diabetes: Sensory Foot Exam 03/01/2025 Diabetes: Visual Foot Exam 03/01/2025 Influenza Vaccine (#1) 2025 , 07/30/2021, 08/29/2017, Additional history exists Diabetes: Hemoglobin A1C 09/19/2025 025, 02/20/2025, 10/09/2024, Additional history exists Pneumococcal Vaccine: Peds ( 0 to 5 Years) and At-Risk Patients (6 to 49 Years) Discontinued 04/18/2007 Procedures Procedure Name Priority Date/Time Associated Diagnosis Comments URINALYSIS, COMPLETE Routine 06/20/2025 10:20 AM EDT Type 2 diabetes mellitus with diabetic chronic kidney disease (HCC) Kidney transplant status Personal history of immunosuppression therapy Stage 3b chronic kidney disease (HCC) Focal segmental glomerulosclerosis Persistent proteinuria Other iron deficiency anemia Other specified hypoparathyroidism (HCC) Albuminuria, not otherwise specified URINE ALBUMIN / CREATININE RATIO Routine 06/20/2025 10:20 AM EDT Type 2 diabetes mellitus with diabetic chronic kidney disease (HCC) Kidney transplant status Personal history of immunosuppression therapy Stage 3b chronic kidney disease (HCC) Focal segmental glomerulosclerosis Persistent proteinuria Other iron deficiency anemia Other specified hypoparathyroidism (HCC) Albuminuria, not otherwise specified PTH, INTACT Routine 06/20/2025 10:20 AM EDT Type 2 diabetes mellitus with diabetic chronic kidney disease (HCC) Kidney transplant status Personal history of immunosuppression therapy Stage 3b chronic kidney disease (HCC) Focal segmental glomerulosclerosis Persistent proteinuria Other iron deficiency anemia Other specified hypoparathyroidism (HCC) Albuminuria, not otherwise specified IRON PANEL (FE, TIBC, TSAT) Routine 06/20/2025 10:20 AM EDT Type 2 diabetes mellitus with diabetic chronic kidney disease (HCC) Kidney transplant status Personal history of immunosuppression therapy Stage 3b chronic kidney disease (HCC) Focal segmental glomerulosclerosis Persistent proteinuria Other iron deficiency anemia Other specified hypoparathyroidism (HCC) Albuminuria, not otherwise specified FERRITIN Routine 06/20/2025 10:20 AM EDT Type 2 diabetes mellitus with diabetic chronic kidney disease (HCC) Kidney transplant status Personal history of immunosuppression therapy Stage 3b chronic kidney disease (HCC) Focal segmental glomerulosclerosis Persistent proteinuria Other iron deficiency anemia Other specified hypoparathyroidism (HCC) Albuminuria, not otherwise specified CREATINE KINASE Routine 06/20/2025 10:20 AM EDT Type 2 diabetes mellitus with diabetic chronic kidney disease (HCC) Kidney transplant status Personal history of immunosuppression therapy Stage 3b chronic kidney disease (HCC) Focal segmental glomerulosclerosis Persistent proteinuria Other iron deficiency anemia Other specified hypoparathyroidism (HCC) Albuminuria, not otherwise specified ALT Routine 06/20/2025 10:20 AM EDT Type 2 diabetes mellitus with diabetic chronic kidney disease (HCC) Kidney transplant status Personal history of immunosuppression therapy Stage 3b chronic kidney disease (HCC) Focal segmental glomerulosclerosis Persistent proteinuria Other iron deficiency anemia Other specified hypoparathyroidism (HCC) Albuminuria, not otherwise specified AST Routine 06/20/2025 10:20 AM EDT Type 2 diabetes mellitus with diabetic chronic kidney disease (HCC) Kidney transplant status Personal history of immunosuppression therapy Stage 3b chronic kidney disease (HCC) Focal segmental glomerulosclerosis Persistent proteinuria Other iron deficiency anemia Other specified hypoparathyroidism (HCC) Albuminuria, not otherwise specified CBC AND DIFFERENTIAL Routine 06/20/2025 10:20 AM EDT Type 2 diabetes mellitus with diabetic chronic kidney disease (HCC) Kidney transplant status Personal history of immunosuppression therapy Stage 3b chronic kidney disease (HCC) Focal segmental glomerulosclerosis Persistent proteinuria Other iron deficiency anemia Other specified hypoparathyroidism (HCC) Albuminuria, not otherwise specified RENAL FUNCTION PANEL Routine 06/20/2025 10:20 AM EDT Type 2 diabetes mellitus with diabetic chronic kidney disease (HCC) Kidney transplant status Personal history of immunosuppression therapy Stage 3b chronic kidney disease (HCC) Focal segmental glomerulosclerosis Persistent proteinuria Other iron deficiency anemia Other specified hypoparathyroidism (HCC) Albuminuria, not otherwise specified MYCOPHENOLIC ACID AND METABO. Routine 06/20/2025 10:20 AM EDT Type 2 diabetes mellitus with diabetic chronic kidney disease (HCC) Kidney transplant status Personal history of immunosuppression therapy Stage 3b chronic kidney disease (HCC) Focal segmental glomerulosclerosis Persistent proteinuria Other iron deficiency anemia Other specified hypoparathyroidism (HCC) Albuminuria, not otherwise specified HEMOGLOBIN A1C Routine 06/20/2025 10:20 AM EDT Type 2 diabetes mellitus with diabetic chronic kidney disease (HCC) MICROSCOPIC EXAMINATION - DO NOT USE Routine 06/20/2025 10:20 AM EDT URINALYSIS, COMPLETE Routine 05/02/2025 9:59 AM EDT Kidney transplant status Personal history of immunosuppression therapy Stage 3b chronic kidney disease (HCC) Other iron deficiency anemia Other specified hypoparathyroidism (HCC) Albuminuria, not otherwise specified URINE ALBUMIN / CREATININE RATIO Routine 05/02/2025 9:59 AM EDT Kidney transplant status Personal history of immunosuppression therapy Stage 3b chronic kidney disease (HCC) Other iron deficiency anemia Other specified hypoparathyroidism (HCC) Albuminuria, not otherwise specified PTH, INTACT Routine 05/02/2025 9:59 AM EDT Kidney transplant status Personal history of immunosuppression therapy Stage 3b chronic kidney disease (HCC) Other iron deficiency anemia Other specified hypoparathyroidism (HCC) Albuminuria, not otherwise specified IRON PANEL (FE, TIBC, TSAT) Routine 05/02/2025 9:59 AM EDT Kidney transplant status Personal history of immunosuppression therapy Stage 3b chronic kidney disease (HCC) Other iron deficiency anemia Other specified hypoparathyroidism (HCC) Albuminuria, not otherwise specified FERRITIN Routine 05/02/2025 9:59 AM EDT Kidney transplant status Personal history of immunosuppression therapy Stage 3b chronic kidney disease (HCC) Other iron deficiency anemia Other specified hypoparathyroidism (HCC) Albuminuria, not otherwise specified CREATINE KINASE Routine 05/02/2025 9:59 AM EDT Kidney transplant status Personal history of immunosuppression therapy Stage 3b chronic kidney disease (HCC) Other iron deficiency anemia Other specified hypoparathyroidism (HCC) Albuminuria, not otherwise specified ALT Routine 05/02/2025 9:59 AM EDT Kidney transplant status Personal history of immunosuppression therapy Stage 3b chronic kidney disease (HCC) Other iron deficiency anemia Other specified hypoparathyroidism (HCC) Albuminuria, not otherwise specified AST Routine 05/02/2025 9:59 AM EDT Kidney transplant status Personal history of immunosuppression therapy Stage 3b chronic kidney disease (HCC) Other iron deficiency anemia Other specified hypoparathyroidism (HCC) Albuminuria, not otherwise specified CBC AND DIFFERENTIAL Routine 05/02/2025 9:59 AM EDT Kidney transplant status Personal history of immunosuppression therapy Stage 3b chronic kidney disease (HCC) Other iron deficiency anemia Other specified hypoparathyroidism (HCC) Albuminuria, not otherwise specified RENAL FUNCTION PANEL Routine 05/02/2025 9:59 AM EDT Kidney transplant status Personal history of immunosuppression therapy Stage 3b chronic kidney disease (HCC) Other iron deficiency anemia Other specified hypoparathyroidism (HCC) Albuminuria, not otherwise specified MYCOPHENOLIC ACID AND METABO. Routine 05/02/2025 9:59 AM EDT Kidney transplant status Personal history of immunosuppression therapy Stage 3b chronic kidney disease (HCC) Other iron deficiency anemia Other specified hypoparathyroidism (HCC) Albuminuria, not otherwise specified MICROSCOPIC EXAMINATION - DO NOT USE Routine 05/02/2025 9:59 AM EDT from Last 3 Months Results * Urinalysis, Complete w/reflex to Culture (06/20/2025 10:20 AM EDT) Only the most recent of2 resultswithin the time period is included. Specific Jber, Urine 1.013 1.005 - 1.030 [facility] pH Urine 6.0 5.0 - 7.5 [facility] [phone] Color, Urine Yellow Yellow [facility] Appearance Urine Clear Clear [facility] WBC Esterase Urine Negative Negative [facility] Protein, Ur Trace Negative/Tra ce [facility] Glucose, Ur Negative Negative [facility] Ketones, Urine Negative Negative [facility] Blood Urine Negative Negative [facility] Bilirubin Urine Negative Negative [facility] Urobilinogen Urine 0.2 0.2 - 1.0 mg/dL [facility] Nitrite, Urine Negative Negative [facility] Microscopic Examination Comment [facility] Comment:Microscopic follows if indicated. Other Microsc. Observations See below: [facility] Comment:Microscopic was daniela cated and was performed. URINALYSIS REFLEX Comment [facility] Comment:This specimen will n ot reflex to a Urine Culture. Urine Urine specimen obtained by clean catch procedure / Unknown 06/20/2025 10:20 AM EDT 06/20/2025 Jose Manuel Seth MD LAB URINE ORDERABLES Final Result Performing Organization Address City/[facility]/ZIP Co de Phone Number [facility] [address] [place] [address] * (ABNORMAL) Mycophenolic Acid and Metabo. (06/20/2025 10:20 AM EDT) Only the most recent of2 resultswithin the time period is included. Mycophenolic Acid 33.8(HH) 1.0 - 3.5 ug/mL [facility] Comment: Results confirmed on dilution. Mycophenolic Acid Glucuronide 62 35 - 100 ug/mL [facility] Blood Venous blood / Unknown 06/20/2025 10:20 AM EDT 06/20/2025 Narrative [facility] - 06/26/2025 11:06 PM EDT Test(s) 291924-Kexqsbiizxjk Acid; 396298- Mycophenolic Acid Glucuronide was developed and its performance characteristics determined by [employer]. It has not been cleared or approved by the Food and Drug Administration. Jose Manuel Seth MD LAB BLOOD ORDERABLES Final Result Performing Organization Address City/[facility]/ZIP Co de Phone Number [facility] [address] [place] [phone] * Microscopic Examination (06/20/2025 10:20 AM EDT) Only the most recent of2 resultswithin the time period is included. WBC, Urine None seen 0 - 5 /[facility] RBC, Urine None seen 0 - 2 /hpf [facility] Squamous Epithelial, Urine 0-10 0 - 10 /hpf [facility] Casts None seen None seen /lpf [facility] Bacteria, Urine None seen None seen/Few [facility] 06/20/2025 10:2 0 AM EDT 06/20/2025 Jose Manuel Seth MD LAB MICROBIOLOGY - GENERAL ORDERABLES Final Result [facility] [address] [place] [address] * (ABNORMAL) Iron Panel (Fe, TIBC, TSAT) (06/20/2025 10:20 AM EDT) Only the most recent of2 resultswithin the time period is included. TIBC 237(L) 250 - 450 ug/dL [facility] UIBC 189 131 - 425 ug/dL [facility] Iron 48 27 - 159 ug/dL [facility] Iron Saturation (TSat) 20 15 - 55 % [facility] Blood Venous blood / Unknown 06/20/2025 10:20 AM EDT 06/20/2025 Jose Manuel Seth MD LAB BLOOD ORDERABLES Final Result [facility] [address] [place] [address] * (ABNORMAL) Urine Albumin / Creatinine Ratio (06/20/2025 10:20 AM EDT) Only the most recent of2 resultswithin the time period is included. Creatinine, Ur 50.9 Not Estab. mg/dL [facility] Albumin, Urine 15.7 Not Estab. ug/mL [facility] Albumin/Creatin ine Ratio 31(H) 0 - 29 mg/g creat [facility] Comment: Normal: 0 - 29 Moderately increased: 30 - 300 Severely increased: >300 Urine Urine specimen obtained by clean catch procedure / Unknown 06/20/2025 10:20 AM EDT 06/20/2025 us Jose Manuel Seth MD LAB URINE ORDERABLES Final Result [facility] [address] [place] [address] * (ABNORMAL) CBC and Differential (06/20/2025 10:20 AM EDT) Only the most recent of2 resultswithin the time period is included. WBC 7.8 3.4 - 10.8 x10E3/uL [facility] RBC 4.84 3.77 - 5.28 x10E6/uL [facility] Hemoglobin 12.9 11.1 - 15.9 g/dL [facility] Hematocrit 42.6 34.0 - 46.6 % [facility] MCV 88 79 - 97 fL [facility] MCH 26.7 26.6 - 33.0 pg [facility] MCHC 30.3(L) 31.5 - 35.7 g/dL [facility] RDW 15.9(H) 11.7 - 15.4 % [facility] Platelets 205 150 - 450 x10E3/uL [facility] Neutrophils Relative 75 Not Estab. % [facility] Lymphocytes Relative 15 Not Estab. % [facility] Monocytes 7 Not Estab. % [facility] Eosinophils Relative 2 Not Estab. % [facility] Basophils Relative 0 Not Estab. % [facility] Neutrophils Absolute 5.9 1.4 - 7.0 x10E3/uL [facility] Lymphocytes Absolute 1.2 0.7 - 3.1 x10E3/uL [facility] Monocytes Absolute 0.5 0.1 - 0.9 x10E3/uL [facility] Eosinophils Absolute 0.1 0.0 - 0.4 x10E3/uL [facility] Basophils Absolute 0.0 0.0 - 0.2 x10E3/uL [facility] Immature Granulocytes 0 Not Estab. % [facility] Immature Grans (Absolute) 0.0 0.0 - 0.1 x10E3/uL [facility] Blood Venous blood / Unknown 06/20/2025 10:20 AM EDT 06/20/2025 Jose Manuel Seth MD LAB BLOOD ORDERABLES Final Result [facility] [address] [place] [address] * ALT (06/20/2025 10:20 AM EDT) Only the most recent of2 resultswithin the time period is included. ALT (SGPT) 14 0 - 32 IU/L [facility] Blood Venous blood / Unknown 06/20/2025 10:20 AM EDT 06/20/2025 Jose Manuel Seth MD LAB BLOOD ORDERABLES Final Result [facility] [address] [place] [address] * AST (06/20/2025 10:20 AM EDT) Only the most recent of2 resultswithin the time period is included. Pathologist [facility] AST (SGOT) 19 0 - 40 IU/L [facility] Blood Venous blood / Unknown 06/20/2025 10:20 AM EDT 06/20/2025 Jose Manuel Seth MD LAB BLOOD ORDERABLES Final Result [facility] [address] [place] [address] * PTH, Intact (06/20/2025 10:20 AM EDT) Only the most recent of2 resultswithin the time period is included. Pathologist [facility] PTH 65 15 - 65 pg/mL [facility] Blood Venous blood / Unknown 06/20/2025 10:20 AM EDT 06/20/2025 Jose Manuel Seth MD LAB BLOOD ORDERABLES Final Result [facility] [address] [place] [address] * Hemoglobin A1c (06/20/2025 10:20 AM EDT) Pathologist [facility] Hemoglobin A1C 5.2 4.8 - 5.6 % [facility] Comment: Prediabetes: 5.7 - 6.4 Diabetes: >6.4 Glycemic control for adults with diabetes: <7.0 Blood Venous blood / Unknown 06/20/2025 10:20 AM EDT 06/20/2025 Jose Manuel Seth MD LAB BLOOD ORDERABLES Final Result Performing Organization Address City/[facility]/ZIP Co de Phone Number [facility] [address] [place] [address] * (ABNORMAL) Ferritin (06/20/2025 10:20 AM EDT) Only the most recent of2 resultswithin the time period is included. Ferritin 1,402(H) 15 - 150 ng/mL [facility] Blood Venous blood / Unknown 06/20/2025 10:20 AM EDT 06/20/2025 Jose Manuel Seth MD LAB BLOOD ORDERABLES Final Result Performing Organization Address [facility] Co de Phone Number [facility] [address] [place] [address] * CK (06/20/2025 10:20 AM EDT) Only the most recent of2 resultswithin the time period is included. Creatine Kinase (CK/CPK) 177 32 - 182 U/L [facility] Blood Venous blood / Unknown 06/20/2025 10:20 AM EDT 06/20/2025 Jose Manuel Seth MD LAB BLOOD ORDERABLES Final Result Performing Organization Address City/[facility] Co de Phone Number [facility] [address] [place] [address] * (ABNORMAL) Renal Function Panel (06/20/2025 10:20 AM EDT) Only the most recent of2 resultswithin the time period is included. Glucose 95 70 - 99 mg/dL [facility] BUN 20 6 - 24 mg/dL [facility] Creatinine 1.40(H) 0.57 - 1.00 mg/dL [facility] eGFR CKD-EPI CR 2020 43(L) >59 mL/min/1.7 3 [facility] BUN/Creatinine Ratio 14 9 - 23 [facility] Sodium 143 134 - 144 mmol/L [facility] Potassium 3.3(L) 3.5 - 5.2 mmol/L [facility] Chloride 110(H) 96 - 106 mmol/L [facility] Bicarbonate (CO2) 16(L) 20 - 29 mmol/L [facility] Calcium 9.1 8.7 - 10.2 mg/dL [facility] Albumin 4.2 3.8 - 4.9 g/dL [facility] Phosphorus 3.2 3.0 - 4.3 mg/dL [facility] Blood Venous blood / Unknown 06/20/2025 10:20 AM EDT 06/20/2025 Jose Manuel Seth MD LAB BLOOD ORDERABLES Final Result [facility] [address] [place] [address] from Last 3 Months Insurance Medicaid [place] Medicaid [place] [facility] Care Teams Office Machine Technician Relationship Specialty Start Date End Date Jerome Fan [address] [place] [address] PCP - General Internal Medicine 08/17/24
--- OUTSIDE RECORDS SUMMARY | 2025-07-10 12:20 | XMS_ITS | Encounter Summary ---
Author Organization [facility], Address [address] [facility] [address] [place] [address] Phone Care Team Providers Care Block Bolter Mule Operator Name Role Phone Jerome Fan Primary Care Provider [phone] Encounter Details Date Type Department Care Team (Late st Contact Info) Description 08/13/2024 Documentation Only [facility] [address] [place] [phone] [place] [address] [place] [address] Social History Tobacco Use Types [...] [facility] [address] [place] [phone] 08/30/2025 10:45 AM EST Office Visit [facility] [address] [place] [phone] Jose Manuel Seth MD [address] [place] [phone] documented as of this encounter Visit Diagnoses Not on filedocumented in this encounter Care Teams Block Bolter Mule Operator Relationship Specialty Start Date End Date Jerome Fan [address] [place] [address] [phone] PCP - General Internal Medicine 08/17/24 documented as of this encounter
== END 2025-07-10 11:39 | disposition home or self-care (01) ==
LOC: HO.HSM 10:46
PROVIDERS: PCP Internal Medicine; Referring Provider Internal Medicine; Visit Provider Nurse Practitioner
DX: I69.398 Other sequelae of cerebral infarction (principal); G40.909 Epilepsy, unspecified, not intractable, without status epilepticus; F48.8 Other specified nonpsychotic mental disorders
CPT/HCPCS: 99204

== ENCOUNTER → 2025-07-10 10:45 | Outpatient (BNVA) | payer OTHER, SELFPAY | PROVIDERS: PCP Internal Medicine; Referring Provider Internal Medicine; Visit Provider Nurse Practitioner | DX: I69.398 Other sequelae of cerebral infarction (principal); G40.909 Epilepsy, unspecified, not intractable, without status epilepticus; F48.8 Other specified nonpsychotic mental disorders | CPT/HCPCS: 99202 ==

== ENCOUNTER 2025-08-28 14:47 | Outpatient (REF) | payer OTHER, SELFPAY ==
[2025-08-28 18:07] LABS: MANUAL DIFF FLAG NO
[2025-08-28 18:20] LABS: Hematocrit 40.2 % (37.0-47.0); Hemoglobin 12.1 g/dl (12.0-16.0); Imm Gran Abs Auto 0.04 X10*3/uL (0.00-0.03); Imm Gran Pct Auto 0.4 % (0.0-0.4); Lymphocytes Absolute Auto 1.6 X10*3/uL (1.2-4.9); Mean Corpuscular HGB Conc 30.1 g/dl (31.0-35.0); Mean Corpuscular Hemoglobin 26.2 pg (27.0-33.0); Mean Corpuscular Volume 87.2 fL (80.0-98.0); NRBC Abs Auto 0.000 X10*3/uL (0.0-0.012); NRBC Pct Auto 0.0 /100WBC (0.0-0.2); Platelet Count 201 X10*3/uL (160-400); Red Blood Count 4.61 X10*6/uL (4.20-5.50); White Blood Count 8.9 X10*3/uL (4.8-10.8)
[2025-08-29 07:03] LABS: EBV-NA IgG Index >600.00 U/mL; EBV-VCA IgM Ab <36.00 U/mL
[2025-08-29 09:06] LABS: HIV Num 1 0.07 S/CO (0.00-0.99)
[2025-08-31 03:59] LABS: TS Negative Control Passed; TS Panel A 0; TS Panel B 0; TS Positive Control Passed; TSpotTB Negative (Negative)
[2025-09-04 12:29] LABS: ANA Pattern 3 Nuclear, Speckled; ANA Titer 3 1:80 titer; Anti Nuclear Antibody Pattern Nuclear, Nucleolar; Anti Nuclear Antibody Screen POSITIVE (NEGATIVE); Anti Nuclear Antibody Titer 1:160 titer
== END 2025-08-28 14:48 | disposition home or self-care (01) ==
LOC: HO.CHCLDS 14:47
PROVIDERS: Visit Provider Family Medicine
DX: Z01.84 Encounter for antibody response examination (principal); Z11.1 Encounter for screening for respiratory tuberculosis; Z11.4 Encounter for screening for human immunodeficiency virus [HIV]; R22.1 Localized swelling, mass and lump, neck
CPT/HCPCS: 36415; 85025; 86038; 86039; 86481; 86611; 86644; 86645; 86664; 86665; 87389

== ENCOUNTER 2025-09-11 09:52 | Outpatient (REF) | payer OTHER, SELFPAY ==
--- NOTE | 2025-09-11 09:55 | EEG_ITS ---
24 Ambulatory EEG History: H/O seizures, hyperlipidemia, GERD, depression, kidney transplant, h/o stroke-brain bleed x2 per pt pt had an event of disoriented and complete loss of awareness over a 3 hour span in Jun 03- witnesses state pt was acting silly - pt checked her home video camera and noticed that she was slurring her speech- MRI of brain showed few punctate bifrontal bitemporal white matter foci Medication: keppra Technical description: Behavioral state: pleasant and cooperative State of Consciousness: awake and asleep Skull defect: no Sedation: no Handedness: Right Duration of study: 24 Ambulatory EEG Last Event: May 2025 Diary entries / Symptoms: pt complained of a headache and one of episode dizziness during this study Description: This is a 24 hour ambulatory EEG. Patient kept a diary and reported 1 episode of dizziness. Background EEG rhythm during wakefulness was about 10 hertz symmetric alpha posteriorly and lower amplitude fast anteriorly. Patient transitioned into different stages of sleep with no significant abnormality. No obvious EEG abnormalities were noted during or around the time of patients notation. Frequent muscle artifacts were noted. Some lead artifacts were also noted. EKG lead was also somewhat limited. No obvious asymmetry paroxysmal tendency or focal activity noted. Impression: Unremarkable 24 hour EEG with patient reporting 1 episode of dizziness MTDD
--- OUTSIDE RECORDS SUMMARY | 2025-09-11 11:07 | XMS_ITS | Encounter Summary ---
Author Organization [employer] Address [address] [facility] 7 [place] [address] Care Team Providers Care Anthropology Instructor Name Role Phone Jerome Esqueda MD Primary Care Prov ider Reason for Visit * Reason Comments Med Refill Encounter Details Date Type Department Care Team ([facility] Contact Info) Description 04/24/2025 Refill [facility] CHC MED & PEDS [address] [place], [place] [phone] Jerome Esqueda MD [address] [place] [address] Social History Tobacco Use Types Packs/Day Years [...] documented as of this encounter Care Teams Anthropology Instructor Relationship Specialty Start Date End Date Jerome Esqueda MD [address] [place] [address] PCP - General Internal Medicine 12/04/19 documented as of this encounter
--- OUTSIDE RECORDS SUMMARY | 2025-09-11 11:07 | XMS_ITS | Clinical Summary ---
Author Organization [facility] Address [address] [place] [address] Care Team Providers Care Bell Valet Name Role Phone Yanna Min MD Primary Care Provider [phone] Social History Tobacco Use Types Packs/Day Years [...] Vaccine 05/10/2025 08/03/2016, , 07/31/2014 COVID-19 Vaccine (2024-2 6 season) 2025 02/13/2022, 08/13/2021, 11/20/2020, Additional history exists RSV Vaccine 50 years and old er and Patients (1 - 1-dose 75+ series) 2040 Insurance [place] [facility] [place] Care Teams Bell Valet Relationship Specialty Start Date End Date Yanna Min MD [address] [facility] [address] [place] [address] PCP - General Internal Medicine 08/18/22
--- OUTSIDE RECORDS SUMMARY | 2025-09-11 11:07 | XMS_ITS | Encounter Summary ---
Author Organization [employer] Address [address] [place] [address] [place] [address] Care Team Providers Care Cream Hauler Name Role Phone Jerome Esqueda MD Primary Care Prov ider Reason for Visit * Reason Onset Date Comments Pt1 04/15/2023 Encounter Details Date Type Department Care Team ([facility] st Contact Info) Description 04/15/2023 Telephone [facility] CHC MED & PEDS [address] [place], [place] [phone] Jerome Esqueda MD [address] [place] [address] Pt1 Social History Tobacco Use Types Packs/Day [...] requesting a PT1 Form: Name of facility: [facility] Dental Specialty: Dental Apt Location: [address] [place] [address] Date: 05/13/2023 Time: 11:30 am fax: n/a wheelchair: no Childbirth Educator: no Visits: 1 Please contact pt at [phone] documented in this encounter Plan of Treatment Not on file documented as of this encounter Visit Diagnoses Not on filedocumented in this encounter Care Teams Cream Hauler Relationship Specialty Start Date End Date Jerome Esqueda MD [address] [place] [address] PCP - General Internal Medicine 12/04/19 documented as of this encounter
--- OUTSIDE RECORDS SUMMARY | 2025-09-11 11:07 | XMS_ITS | Encounter Summary ---
Author Organization [employer] [facility] Address [address] [facility] 7 [place] [address] Care Team Providers Care Teacher Physically Impaired Name Role Phone Jerome Esqueda MD Primary Care Prov ider Reason for Visit * Reason Comments Med Change Request Encounter Details Date Type Department Care Team ([facility] Contact Info) Description 07/23/2023 Refill [facility] CHC MED & PEDS [address] [place], [place] [phone] Jerome Esqueda MD [address] [place] [address] Social History Tobacco Use Types Packs/Day Years [...] documented as of this encounter Care Teams Teacher Physically Impaired Relationship Specialty Start Date End Date Jerome Esqueda MD [address] [place] [address] PCP - General Internal Medicine 12/04/19 documented as of this encounter
--- OUTSIDE RECORDS SUMMARY | 2025-09-11 11:07 | XMS_ITS | Encounter Summary ---
Author Organization [employer] Address [address] [facility] 7 [place] [address] Care Team Providers Care Yarder Boss Name Role Phone Jerome Esqueda MD Primary Care Prov ider Reason for Visit * Reason Onset Date Comments Results 09/04/2025 Encounter Details Date Type Department Care Team ([facility] Contact Info) Description 09/04/2025 Results Follow-Up [facility] CHC MED & PEDS [address] [place] [address] Shabnam Dill MD [address] [place] [address] CBC auto differential, HIV-1/2 Antigen and Antibodies, Fourth Generation, with Reflexes, Jay Jay-Tomlinson Virus Antibody Panel, Additional followed-up results: 4 Social History Tobacco Use Types Packs/Day Years [...] housing situation today? I have elaine lima 05/09/[address] you li [...] encounter Miscellaneous Notes * Telephone Encounter - Sade Petersen RN - 09/10/2025 10:19 AM EST TC to pt and reviewed results and recommendation for imaging that was ordered. Pt reports is to complete the US on 09/25/25. Advised pt will be contacted with results. Pt requesting to have lab results mailed to her and to have results shared with stitcher feeder due to being concerned what this meansfor her kidneys. Advised will share information per pt request. Pt verbalized understanding and agreement with plan. * Telephone Encounter - Sade Petersen RN - 09/10/2025 10:19 AM EST ----- Message from Shabnam Dill MD sent at 09/04/2025 3:10 PM EST ----- Niya Barclay Team! Can you please call Elle Douglas and inform about results? Your lab results show that you have had prior exposure to two common viruses, cytomegalovirus (CMV)and Jay Jay-Tomlinson virus (EBV). Most adults have been exposed to these viruses at some point in their lives, and this usually does not cause any problems for healthy people. Your antinuclear antibody (JERSEY) test was higher than normal, but this result is not specific. This means that while JERSEY can sometimes be linked to autoimmune diseases, it can also be seen in people with infections or even in healthy people. A positive JERSEY test by itself does not mean you have an autoimmune disease, and more information is usually needed to understand what it means for your health. Your complete blood count (CBC) showed more neutrophils than usual. Neutrophils are a type of whiteblood cell that help your body fight infections. Having more neutrophils can happen with infections, inflammation, or even stress, but it does not point to a specific illness on its own. Because of these findings, I recommended follow-up imaging to get more information, and I advised you to follow up with your primary care provider. This will help us make sure nothing important is missed and that you get the care you need. If you have any questions or new symptoms, please reach out to your PCP. Thanks! Shabnam ----- Message ----- From: Interface, Lab Results In Sent: 08/28/2025 6:21 PM EST To: Shabnam Dill MD documented in this encounter Plan of Treatment Not on file documented as of this encounter Visit Diagnoses Not on filedocumented in this encounter Additional Health Concerns Assessment Noted Time PHQ-9 Depression Total Score: 16 025 2:51 PM EDT documented as of this encounter Care Teams Yarder Boss Relationship Specialty Start Date End Date Jerome Esqueda MD [address] [place] [address] PCP - General Internal Medicine 12/04/19 documented as of this encounter
--- OUTSIDE RECORDS SUMMARY | 2025-09-11 11:07 | XMS_ITS | Clinical Summary ---
Author Organization [facility] Address [address] [address] Phone Care Team Providers Care Clinical Support Associate Name Role Phone Yanna Min MD Primary [...] FOBT 2010 SIGMOIDOSCOPY 2010 VIRTUAL COLONOSCOPY 2010 RSV VACCINE (1 - Risk 50-74 years 1-dose series) 2015 COVID-19 VACCINE (3 - Pfizer risk series) [...] topic Medical Devices Not on file Insurance [employer] [place] [address] [place], [place] [address] [facility] [employer] [facility] [employer] [place] [address] [place] [address] [place] [address] [address] [address] [place] [address] [place] [address] [facility] [address] Care Teams Clinical Support Associate Relationship Specialty Start Date End Date Yanna Min MD [address] [place] [address] PCP - General 01/03/19 Additional Source Comments The information contained in this document represents components of the legal health record. It is not the complete legal health record.[facility]
--- OUTSIDE RECORDS SUMMARY | 2025-09-11 11:07 | XMS_ITS | Encounter Summary ---
Author Organization [employer] Address 75 [facility] 7 [place] [address] Care Team Providers Care Superintendent Storage Area Name Role Phone Jerome Esqueda MD Primary Care Prov ider Reason for Visit * Reason Onset Date Comments Referral 07/30/2024 FYI 07/30/2024 Encounter Details Date Type Department Care Team ([facility] st Contact Info) Description 07/30/2024 Telephone [facility] MEDICINE [address] [place] [address] Jerome Esqueda MD [address] [place], [place] [phone] Referral; FYI Social History Tobacco Use Types [...] BRADY listed on file to speak with [facility]. * Telephone Encounter - Richardson Serna - 07/30/2024 3:22 PM EDT Dk Carl at [employer] calling to report patient had a anxiety and depression screening on 07/25 depression was scored at 21 and is listed severe and anxiety was a 14 which is moderate would like a call back at [phone] also if a referral can be put [...] documented as of this encounter Care Teams Superintendent Storage Area Relationship Specialty Start Date End Date Jerome Esqueda MD [address] [place] [address] PCP - General Internal Medicine 12/04/19 documented as of this encounter
--- OUTSIDE RECORDS SUMMARY | 2025-09-11 11:07 | XMS_ITS | Encounter Summary ---
Author Organization [employer] Address [address] [place] [address] [place] [address] Care Team Providers Care Chief Quality Officer Name Role Phone Jerome Esqueda MD Primary Care Prov ider Reason for Visit * Reason Onset Date Comments PT1 11/17/2022 Encounter Details Date Type Department Care Team ([facility] st Contact Info) Description 11/17/2022 Telephone [facility] CHC MED & PEDS [address] [place], [place] [phone] Jerome Esqueda MD [address] [place] [address] PT1 Social History Tobacco Use Types Packs/Day [...] of facility: [facility] Specialty: Both Left and Right Foot Location: [address] [place], [place] [address] Date: 01-19-2023 Time: 1:45 pm fax: [phone] wheelchair: n/a Well Drill Operator Rotary Drill: n/a documented in this encounter Plan of Treatment Not on file documented as of this encounter Visit Diagnoses Not on filedocumented in this encounter Care Teams Chief Quality Officer Relationship Specialty Start Date End Date Jerome Esqueda MD [address] [place] [address] PCP - General Internal Medicine 12/04/19 documented as of this encounter
--- OUTSIDE RECORDS SUMMARY | 2025-09-11 11:07 | XMS_ITS | Encounter Summary ---
Author Organization [facility] Address [address] [place] [phone] Phone Care Team Providers Care Forensic Dna Analyst Name Role Phone Yanna Min MD Primary Care Provider + Encounter Details Date Type Department Care Team (Late st Contact Info) Description 01/04/2019 Procedure [facility] [address] [place] [address] Social History Tobacco Use Types Packs/Day Years [...] on filedocumented in this encounter Care Teams Forensic Dna Analyst Relationship Specialty Start Date End Date Yanna Min MD [address] [place] [address] PCP - General 01/03/19 documented as of this encounter Additional Source Comments The information contained in this document represents components of the legal health record. It is not the complete legal health record.[facility]
--- OUTSIDE RECORDS SUMMARY | 2025-09-11 11:07 | XMS_ITS | Encounter Summary ---
Author Organization [employer] Address 75 [facility] 7 [place] [address] Care Team Providers Care Paper Carrier Name Role Phone Jerome Esqueda MD Primary Care Prov ider Reason for Visit * Reason Comments Med Change Request Encounter Details Date Type Department Care Team ([facility] Contact Info) Description 07/26/2023 Refill [facility] CHC MED & PEDS [address] [place], [place] [phone] Jerome Esqueda MD [address] [place] [address] Social History Tobacco Use Types Packs/Day Years [...] documented as of this encounter Care Teams Paper Carrier Relationship Specialty Start Date End Date Jerome Esqueda MD [address] [place] [address] PCP - General Internal Medicine 12/04/19 documented as of this encounter
--- OUTSIDE RECORDS SUMMARY | 2025-09-11 11:07 | XMS_ITS | Encounter Summary ---
Author Organization [employer] Address [address] [place] [address] 7 [place] [address] Care Team Providers Care Neurodiagnostic Technician Name Role Phone Jerome Esqueda MD Primary Care Prov ider Reason for Visit * Reason Onset Date Comments letter 09/10/2024 Encounter Details Date Type Department Care Team ([facility] Contact Info) Description 09/10/2024 Telephone [facility] CHC MED & PEDS [address] [place], [place] [phone] Jerome Esqueda MD [address] [place] [address] letter Social History Tobacco Use Types Packs/Day [...] apartment complex in which she lives in [place] requires a letter stating she has anxiety [...] documented as of this encounter Care Teams Neurodiagnostic Technician Relationship Specialty Start Date End Date Jerome Esqueda MD [address] [place] [address] PCP - General Internal Medicine 12/04/19 documented as of this encounter
--- OUTSIDE RECORDS SUMMARY | 2025-09-11 11:07 | XMS_ITS | Encounter Summary ---
Author Organization [employer] Address [address] [place] [address] Care Team Providers Care Motorman/Woman Name Role Phone Jerome Esqueda MD Primary Care Prov ider Reason for Visit * Reason Onset Date Comments pt1 12/22/2022 Encounter Details Date Type Department Care Team ([facility] st Contact Info) Description 12/22/2022 Telephone [facility] MEDICINE [address] [place] [address] Jerome Esqueda MD [address] [place] [address] pt1 Social History Tobacco Use Types Packs/Day [...] EDT Tc from pt requesting pt1 Location: [address] [place] [address] [place] [address] Specialty: kidney specialist Time: 8:30 am Date: January, , february 22, March 25, April 22, may 20 Foam Molder: no wheelchair accessible : no documented in this encounter Plan of Treatment Not on file documented as of this encounter Visit Diagnoses Not on filedocumented in this encounter Care Teams Motorman/Woman Relationship Specialty Start Date End Date Jerome Esqueda MD [address] [place] [address] PCP - General Internal Medicine 12/04/19 documented as of this encounter
--- OUTSIDE RECORDS SUMMARY | 2025-09-11 11:07 | XMS_ITS | Encounter Summary ---
Author Organization [employer] Address [address] [facility] 7 [place] [address] Care Team Providers Care Tobacco Drummer Name Role Phone Jerome Esqueda MD Primary Care Prov ider Reason for Visit * Reason Onset Date Comments triage 02/16/2023 Encounter Details Date Type Department Care Team (Late st Contact Info) Description 02/16/2023 Telephone [facility] MEDICINE [address] [place] [address] Jerome Esqueda MD [address] [place] [address] triage Social History Tobacco Use Types Packs/Day [...] were negative * Telephone Encounter - Denis Toddos - 02/16/2023 12:48 PM EDT Symptom: Breathing Trouble Outcome: Schedule an urgent appointment (within 1 hour) or talk to a nurse or provider soon Reason: Caller denied all higher acuity questions The caller accepted this outcome documented in this encounter Plan of Treatment Not on file documented as of this encounter Visit Diagnoses Not on filedocumented in this encounter Care Teams Tobacco Drummer Relationship Specialty Start Date End Date Fan Jerome Rodriguez MD [address] [place] [address] PCP - General Internal Medicine 12/04/19 documented as of this encounter
--- OUTSIDE RECORDS SUMMARY | 2025-09-11 11:07 | XMS_ITS | Encounter Summary ---
Author Organization [facility] Address [address] [facility] [address] [place] [phone] Phone Care Team Providers Care Home Economist Name Role Phone Yanna Min MD Primary Care Provider + Encounter Details Date Type Department Care Team (Late st Contact Info) Description 01/03/2019 Ancillary Orders [facility] Interventional Rad [address] [place] [address] Danis Lange MD, MIMI [address] [place] [phone] [email or web address] [place] Social History Tobacco Use Types Packs/Day [...] lump documented in this encounter Care Teams Home Economist Relationship Specialty Start Date End Date Yanna Min MD [address] [place] [address] PCP - General 01/03/19 documented as of this encounter Additional Source Comments The information contained in this document represents components of the legal health record. It is not the complete legal health record.[facility]
--- OUTSIDE RECORDS SUMMARY | 2025-09-11 11:07 | XMS_ITS | Encounter Summary ---
Author Organization [employer] Address [address] [facility] 7 [place] [address] Care Team Providers Care Distillery Supervisor Name Role Phone Jerome Esqueda MD Primary Care Prov ider Reason for Visit * Reason Onset Date Comments Referral 12/12/2024 Encounter Details Date Type Department Care Team ([facility] st Contact Info) Description 12/12/2024 Telephone [facility] MEDICINE [address] [place] [address] Jerome Esqueda MD [address] [place] [address] Referral Social History Tobacco Use Types Packs/Day [...] new Referral for podiatry due to [employer] Dying. Pt would like to seeif there are any in [place] or somewhere close to her. Contact pt at [phone] documented in this encounter Plan of Treatment Not on file documented as of this encounter Visit Diagnoses Not on filedocumented in this encounter Additional Health Concerns Assessment Noted Time PHQ-9 Depression Total Score: 1 05/16/20 23 1:21 PM EDT documented as of this encounter Care Teams Distillery Supervisor Relationship Specialty Start Date End Date Jerome Esqueda MD [address] [place] [address] PCP - General Internal Medicine 12/04/19 documented as of this encounter
--- OUTSIDE RECORDS SUMMARY | 2025-09-11 11:08 | XMS_ITS | Encounter Summary ---
Author Organization [employer] Address [address] [facility] 7 [place] [address] Care Team Providers Care Report Checker Name Role Phone Jerome Esqueda MD Primary Care Prov ider Reason for Visit * Reason Onset Date Comments PT1 11/02/2023 Encounter Details Date Type Department Care Team ([facility] st Contact Info) Description 11/02/2023 Telephone [facility] CHC MED & PEDS [address] [place], [place] [phone] Jerome Esqueda MD [address] [place] [address] PT1 Social History Tobacco Use Types Packs/Day [...] 10 AM Visits: n/a [facility] [address] [facility] Facility: renal and [facility] associate [facility] Chair: no [employer] Worker Needed: n/a Home address confirmed: [address], [address] [facility] documented in this encounter Plan of Treatment Not on file documented as of this encounter Visit Diagnoses Not on filedocumented in this encounter Additional Health Concerns Assessment Noted Time PHQ-9 Depression Total Score: 1 05/16/20 23 1:21 PM EDT documented as of this encounter Care Teams Report Checker Relationship Specialty Start Date End Date Jerome Esqueda MD [address] [place] [address] PCP - General Internal Medicine 12/04/19 documented as of this encounter
--- OUTSIDE RECORDS SUMMARY | 2025-09-11 11:08 | XMS_ITS | Encounter Summary ---
Author Organization [employer] Address [address] [place] [address] 7 [place] [address] Care Team Providers Care Inspector Set Up And Lay Out Name Role Phone Jerome Esqueda MD Primary Care Prov ider Reason for Visit * Reason Onset Date Comments New Med Request 02/24/2024 Encounter Details Date Type Department Care Team ([facility] st Contact Info) Description 02/24/2024 Telephone [facility] CH[facility] MED & PEDS [address] [place], [place] [phone] Jerome Esqueda MD [address] [place] [address] New Med Request Social History Tobacco Use [...] 1:32 PM EDT Tc from [place] with [facility] calling in regards to [...] as of this encounter Care Teams Inspector Set Up And Lay Out Relationship Specialty Start Date End Date Jerome Esqueda MD [address] [place] [phone] PCP - General Internal Medicine 12/04/19 documented as of this encounter
--- OUTSIDE RECORDS SUMMARY | 2025-09-11 11:08 | XMS_ITS | Encounter Summary ---
Author Organization [employer] Address [address] [facility] 7 [place] [address] Care Team Providers Care Photographic Artist Name Role Phone Jerome Esqueda MD Primary Care Prov ider Encounter Details Date Type Department Care Team ([facility] st Contact Info) Description 08/11/2023 Orders Only [facility] CHC MED & PEDS [address] [place], [place] [phone] Jerome Esqueda MD [address] [place] [address] Social History Tobacco Use Types Packs/Day Years [...] documented as of this encounter Care Teams Photographic Artist Relationship Specialty Start Date End Date Jerome Esqueda MD [address] [place] [phone] PCP - General Internal Medicine 12/04/19 documented as of this encounter
--- OUTSIDE RECORDS SUMMARY | 2025-09-11 11:08 | XMS_ITS | Clinical Summary ---
Author Organization [employer] Address [address] [facility] [address] [place] [address] Care Team Providers Care Mender [employer] Name Role Phone Jerome Esqueda MD Primary Care Prov ider Allergies Active Allergy Reactions Criticality Noted Date Comments Sulfamethoxazole-Trimethopri m Hives Low 11/08/2022 Banana 01/04/2019 Other Reaction(s): itchy feeling Other reaction(s): itchy feeling Fentanyl 11/08/2022 Iodinated Contrast Media Hives Low [...] tablet Chew 81 mg. 04/06/20 21 Active levETIRAcetam (Keppra) 500 MG tablet Take [...] TABLET BY MOUTH ONCE DAILY 90 tablet 5 11:50 AM EDT 06/14/20 25 Active famotidine (Pepcid) 20 MG tablet Take 1 tablet (20 mg) by mouth 2 times daily. 180 tablet 3 5 12:56 PM EST 08/14/20 25 026 Active zolpidem (Ambien) 10 MG tablet TAKE ONE TABLET BY MOUTH AT BEDTIME NEEDED FOR SLEEP 30 tablet 5 12:08 PM EST 08/26/20 25 Active famotidine (Pepcid) 20 MG tablet 09/29/20 22 025 Discontinued(Re order (will not trigger notification to Pharmacy)) zolpidem (Ambien) 10 MG tablet TAKE 1 TABLET BY MOUTH IF NEEDED AT BEDTIME FOR SLEEP 30 tablet 5 12:32 PM EDT 07/23/20 25 025 Discontinued Active Problems Problem Noted Date Diagnosed Date Localized swelling, mass and lump, neck 08/28/20 25 Adjustment disorder with depressed mood 03/27/20 25 [...] informed of referral made on 04/01 to [facility]- provided contact info as well. [...] unexpectedly. Pt receives positive support from her alevism community and family. Provided empathic counseling and discuss plan to use during this difficult time. Bereavement 03/27/2025 Assessment & Plan (08/14/2025 2:29 PM EST): Improving, no suicidal/homicidal ideas, follow up as needed Assessment & Plan (06/13/2025 9:58 AM EDT): [...] informed of referral made on 04/01 to [facility]- provided contact info as well. clinician will continue to provide additional support as requested from pt and as needed. Screening for colon cancer 01/17/2025 Assessment & Plan (01/17/2025 12:32 PM EDT): Done on 2018, due in 10 years Primary insomnia 09/20/2023 Assessment & Plan (08/14/2025 2:29 PM EST): Stable, on zolpidem, no changes will be made Assessment & Plan (09/20/2023 10:50 AM EST): [...] wegovy, it was also recommended by her casket liner, will place order, reviewed side effects Mixed [...] 01/26/2023 End stage renal failure on dialysis ([facility]) Overview (01/26/2023): previous on PD and now on HD Hemorrhoids without complication 01/26/2023 Hyperlipidemia 01/26/2023 History of renal transplant 01/26/2023 History of thyroidectomy 01/26/2023 Lactic acid acidosis 01/26/2023 Renal transplant failure and rejection Severe obesity (BMI 35.0-39.9) with comorbidity ([facility]) 01/26/2023 Proteinuria 01/20/2023 Seizure ([facility]) 01/20/2023 Assessment & Plan (08/14/2025 2:28 PM EST): Followed by neurology, keppra was increased to 750mg, pending EEG Dyspnea 12/08/2022 Edema 12/08/2022 Murmur 12/08/2022 Elevated blood pressure reading 11/08/2022 Cerebrovascular accident ([facility]) 07/29/2022 Assessment & Plan (05/16/2023 2:21 PM EDT): Patient with a low toilet seat, will send rx for raised toilet seat with handles. Lactic acidosis 07/29/2022 Anemia in chronic kidney disease 07/22/2022 Kidney transplant status 07/22/2022 Assessment & Plan (07/23/2023 10:20 AM EDT): Followed by nephrology History of kidney transplant 03/28/2022 Overview (01/26/2023): campath induction/DCD Depressive disorder 03/05/2022 End-stage renal disease on hemodialysis (CMS/HCC ) 03/05/2022 Gastrointestinal hemorrhage 03/24/2021 Acquired absence of kidney 05/08/2019 Acquired deformity of pelvis 05/08/2019 Acid reflux 04/14/2018 Assessment & Plan (08/14/2025 2:28 PM EST): Will renew famotidine, lifestyle modifications encouraged, follow up as needed Bilateral carpal tunnel syndrome 04/14/2018 Chronic nephritic [...] abdominal wall with infect ion 04/14/2018 Encounters Date Type Department Care Team Description 09/04/2025 Results Follow-Up [facility] PEDS [address] [place] [address] Shabnam Dill MD CBC auto differential, HIV-1/2 Antigen and Antibodies, Fourth Generation, with Reflexes, Jay Jay-Tomlinson Virus Antibody Panel, Additional followed-up results: 4 08/28/2025 2:20 PM EST Office Visit [facility] [address] [place] [phone] Shabnam Dill MD Localized swelling, mass and lump, neck (Primary Dx); Kyphosis of cervical region, unspecified kyphosis type 08/28/2025 Travel 08/27/2025 Telephone [facility] MEDICINE [address] [place], [place] [phone] Jerome Esqueda MD Nurse Triage 08/23/[address] [facility] [address] [place] [address] Jerome Esqueda MD 08/14/2025 2:00 PM EST Telemedicine [facility] [address] [place] [address] Jerome Esqueda MD Seizure (CMS/HCC) (HCC) (Primary Dx); Primary insomnia; Bereavement; Gastroesophageal reflux disease without esophagitis 08/14/2025 Travel 08/13/[address] [facility] [address] [place] [address] Jerome Esqueda MD chart prep 07/20/[address] [facility] [address] [place] [address] Jerome Esqueda MD 06/22/[address] [facility] [address] [place] [address] Jerome Esqueda MD 06/13/[address] [facility] [address] [place] [address] Jerome Esqueda MD from Last 3 Months Immunizations Immunization Administration Dates Next Due Influenza injectable quadriv alent IIV4 with preservative 08/29/2017,08/03/2016 Influenza injectable quadriv alent preservative free 07/30/2021 Influenza, IIV3, injectable 07/14/2023,1 ,08/03/2016,07/25,07/31/2014 Influenza, Unspecified 10/01/2022,2015,07/25/2015,07/31 Pfizer Covid-19 Vaccine 12+ 02/13/2022 Pfizer Covid-19 Vaccine 12+ Bivalent 2022 Pfizer Covid-19 Vaccine 12+ monique-sucrose ([place] Cap) 08/13/2021 Pneumococcal Polysaccharide PPSV23 04/18/2007 Tdap 04/05/2011 Zoster, Recombinant 07/07/2022,,03/12/2022,03/12 Social History Tobacco Use Types Packs/Day Years [...] Sign Reading Time Taken Comments Blood Pressure 124/66 08/28/2025 2:11 PM EST Pulse 74 08/28/2025 2:11 PM EST Temperature 36.9 C (98.4 F) 08/28/2025 2:11 PM EST Respiratory Rate 20 08/28/2025 2:11 PM EST Oxygen Saturation 98% 08/28/2025 2:11 PM EST Inhaled Oxygen Concentration - - Weight 98.1 kg (216 lb 3.2 oz) 08/28/2025 2:11 P M EST Height 153 cm (5' 0.24 ) 08/28/2025 2:11 PM EST Body Mass Index 41.89 08/28/2025 2:11 PM EST Plan of Treatment Health Maintenance Due Date Last Done Comments CT Colonography 1965 Colonoscopy 1965 Colorectal Cancer Screening 1965 FIT DNA/Cologuard 1965 FIT 1965 FOBT 1965 Sigmoidoscopy 1965 Hepatitis C Screening 1983 Pap Smear 1986 Cervical Cancer Screening 1995 HPV/Cotest 1995 Pneumococcal Vaccine: 50+ Years (2 of 2 - PCV) 04/18/2008 04/18/2007 RSV Patients and Patients Aged 60 years or older (1 - Risk 50-74 years 1-dose series) 2015 DTaP/Tdap/Td Vaccines (2 - Td or Tdap) 04/05/2021 04/05/2011 COVID-19 Vaccine ( season) 2025 07/22/2023, 2022, 02/13/2022, Additional history exists Influenza Vaccine (#1) 2025 , 10/01/2022, 07/30/2021, Additional history exists Depression Monitoring 10/18/2025 04/17/2025, 025 Alcohol/Substance Use Screening 05/09/2026 05/09/2025 SDOH Screening 05/09/2026 05/09/2025 Disability Screening 08/14/2026 08/14/2025 Tobacco Screening 08/28/2026 08/28/2025 Mammogram 10/19/2026 10/19/2024 Lipid Panel 07/22/2028 07/22/2023 Zoster Vaccines Completed 07/07/2022, 06/11, 03/12/2022, Additional history exists HIV Screening Completed 08/28/2025 HIB Vaccines Aged Out No longer eligi [...] Procedure Name Priority Date/Time Associated Diagnosis Comments T-SPOT(R).TB Routine 08/28/2025 2:54 PM EST Localized swelling, mass and lump, neck JERSEY SCREEN, IFA, W/REFL TITER AND PATTERN Routine 08/28/2025 2:54 PM EST Localized swelling, mass and lump, neck BARTONELLA SPECIES AB (IGG,IGM) W/REFL TITERS Routine 08/28/2025 2:54 PM EST Localized swelling, mass and lump, neck CYTOMEGALOVIRUS ANTIBODIES (IGG,IGM) Routine 08/28/2025 2:54 PM EST Localized swelling, mass and lump, neck JAY JAY TOMLINSON VIRUS ANTIBODY PANEL Routine 08/28/2025 2:54 PM EST Localized swelling, mass and lump, neck HIV 1/2 ANTIGEN/ANTIBODY, FOURTH GENERATION W/RFL Routine 08/28/2025 2:54 PM EST Localized swelling, mass and lump, neck CBC WITH AUTO DIFFERENTIAL Routine 08/28/2025 2:54 PM EST Localized swelling, mass and lump, neck MR BRAIN WO CONTRAST Routine 06/20/2025 Loss of consciousness (CMS/HCC) HM MAMMOGRAPHY Routine 10/19/2024 LIPID PANEL, STANDARD Routine 07/22/2023 9:45 AM EDT Mixed hyperlipidemia from Last 3 Months or Most Recently Relevant to Health Maintenance Results * T-SPOT??.TB (08/28/2025 2:54 PM EST) T Spot TB Negative Negative [facility] Comment:A negative test resu lt does not exclude the possibilityof exposure to or infection with Mycobacteriumtuberculosis (M. tuberculosis). Patients with recentexposure to TB infected individuals exhibiting anegative T-SPOT.TB result should be considered forretesting within 6 weeks or if other relevant clinicalsymptoms indicate. Results from T-SPOT.TB testing mustbe used in conjunction with each individual'sepidemiological history, current medical status,and results of other diagnostic evaluations.The T-SPOT.TB test is qualitative and results arereported as positive, borderline, or negative, giventhat the test controls perform as expected. In linewith the Centers for Disease Control and Prevention's2010 recommendation to report quantitative measurementsalongside the qualitative result, the laboratoryprovides spot counts for informational purposes only.The T-SPOT.TB test should not be interpreted as aquantitative test. TS PANEL A 0 [facility] TS PANEL B 0 [facility] Negative Control Passed [facility] Positive Control Passed [facility] Comment:For additional infor qamar, please refer tohttp://education.LetMeGo/faq/TBH713(This link is being provided for informational/educational purposes only.)THIS TEST WAS PERFORMED AT:[employer] [id number] [place] [address]REPVSLISUNDAY GARRISON MD,PHD 08/28/2025 2:54 PM EST 08/28/2025 6:04 PM EST Shabnam Dill MD LAB BLOOD ORDERABLES Final Re sult Performing Organization Address [facility]/State/ZIP Co de Phone Number [facility] [address] [place] [address] [phone] * (ABNORMAL) Cytomegalovirus Antibodies (IgG,IgM) (08/28/2025 2:54 PM EST) Cytomegalovirus Antibody IgG >10.00(A) U/mL [facility] Comment:U/mL Interpretation ----- <0.60 Negative 0.60-0.69 Equivocal > or = 0.70 PositiveA positive result indicates that the patient hasantibody to CMV. It does not differentiate betweenan active or past infection. Cytomegalovirus Antibody IgM <30.00 AU/mL [facility] Comment:AU/mL Interpretation ----- <30.00 No Antibody Detected 30.00-34.99 Equivocal > or = 35.00 Antibody DetectedResults from any one IgM assay should not be used as asole determinant of a current or recent infection.Because an IgM test can yield false positive results andlow level IgM antibody may persist for more than 12months post infection, reliance on a single test resultcould be misleading. Acute infection is best diagnosedby demonstrating the conversion of IgG from negative topositive. If an acute infection is suspected, considerobtaining a new specimen and submit for both IgG and IgMtesting in two or more weeks.THIS TEST WAS PERFORMED AT:[address] [place] [id number] MATIAS MD 08/28/2025 2:54 PM EST 08/28/2025 6:04 PM EST Shabnam Dill MD LAB BLOOD ORDERABLES Final Re sult [facility] [address] [place], [place] [phone] * (ABNORMAL) CBC auto differential (08/28/2025 2:54 PM EST) White Blood Count 8.9 4.8 - 10.8 X10*3/uL [facility] Red Blood Count 4.61 4.20 - 5.50 X10*6/uL [facility] Hemoglobin 12.1 12.0 - 16.0 g/dl [facility] Hematocrit 40.2 37.0 - 47.0 % [facility] Mean Corpuscular Volume 87.2 80.0 - 98.0 fL [facility] Mean Corpuscular Hemoglobin 26.2(L) 27.0 - 33.0 pg [facility] Mean Corpuscular HGB Conc 30.1(L) 31.0 - 35.0 g/dl [facility] Red Cell Distribution Width 15.5 11.0 - 16.0 % [facility] Platelet Count 201 160 - 400 X10*3/uL [facility] Mean Platelet Volume 10.8 9.4 - 12.3 fL [facility] Neutrophils Percent Auto 74.2(H) 45 - 73 % [facility] Imm Gran Pct Auto 0.4 0.0 - 0.4 % [facility] Lymphocytes Percent Auto 17.9(L) 20 - 40 % [facility] Monocytes Percent Auto 6.2 2 - 11 % [facility] Eosinophils Percent Auto 1.1 0 - 4 % [facility] Basophils Percent Auto 0.2 0 - 2 % [facility] NRBC Pct Auto 0.0 0.0 - 0.2 /100WBC [facility] Neutrophils Absolute Auto 6.6 2.0 - 8.3 x10*3/uL [facility] Imm Gran Abs Auto 0.04(H) 0.00 - 0.03 X10*3/uL [facility] Lymphocytes Absolute Auto 1.6 1.2 - 4.9 X10*3/uL [facility] Monocytes Absolute Auto 0.6 0.1 - 1.2 X10*3/uL [facility] Eosinophils Absolute Auto 0.1 0.0 - 0.4 X10*3/uL [facility] Basophils Absolute Auto 0.0 0.0 - 0.2 X10*3/uL [facility] NRBC Abs Auto 0.000 0.0 - 0.012 X10*3/uL [facility] Blood Venous blood specimen / Unknown 08/28/2025 2:54 PM EST 08/28/2025 6:04 PM EST us Shabnam Dill MD LAB BLOOD ORDERABLES Final Re sult [facility] [address] [place] [phone] * (ABNORMAL) Jay Jay-Tomlinson Virus Antibody Panel (08/28/2025 2:54 PM EST) Pathologist [facility] EBV Viral Capsid Antigen (VCA) Antibody IgG 638.00(A) U/mL [facility] Comment:U/mL Interpretation ---- <18.00 Negative 18.00-21.99 Equivocal >21.99 Positive EBV Viral Capsid Antigen (VCA) Ab IgM <36.00 U/mL [facility] Comment:U/mL Interpretation ---- <36.00 Negative 36.00-43.99 Equivocal >43.99 Positive EBV Nuclear Antigen (EBNA) Antibody IgG >600.00(A ) U/mL [facility] Comment:U/mL Interpretation ---- <18.00 Negative 18.00-21.99 Equivocal >21.99 Positive Interpretation: SEE NOTE [facility] Comment:Suggestive of a past Jay Jay-Tomlinson virus infection.In infants, a similar pattern may occur as a resultof passive maternal transfer of antibody.THIS TEST WAS PERFORMED AT:[facility] [address] [id number] MATIAS MD Blood Venous blood specimen / Unknown 08/28/2025 2:54 PM EST 08/28/2025 6:04 PM EST us Shabnam Dill MD LAB BLOOD ORDERABLES Final Re sult [facility] [address] [place] [address] [phone] * Bartonella Species Antbodies (IgG,IgM) W/Refl Titers (08/28/2025 2:54 PM EST) B. henselae Ab IgG Screen Negative [facility] B. henselae Ab IgM Screen Negative [facility] B. amaro Antibody IgG, Screen Negative [facility] B. amaro antibody IgM, Screen Negative [facility] Comment: Reference Range: NegativeWhereas sera from 10% of healthy controls exhibitBartonella henselae IgG titers of 1:64-1:128, noneshow titers of 1:256 or above. Sera from 95% ofpatients with clinically defined cat scratch diseaseshow IgG titers of 1:64 and above; 79% exhibit titersof 1:256 and above. IgM titers at 1:20 or higher havenot been detected in the normal adult population.Individuals infected with B. henselae may not haveinitial IgG titers greater than or equal to 1:64;confirmation of infection may therefore requiretesting of serial specimens to detect increasingIgG titers or the presence of IgM.The two major clinical manifestations associated withB. amaro infection are urban trench fever andendocarditis. Due to the acute nature of urban trenchfever, both B. amaro IgG and IgM may be positive.In contrast, B. amaro-associated endocarditistypically reflects chronic infection, and thesepatients nearly always exhibit an IgG positive butIgM negative result pattern.This test was developed and its analytical performancecharacteristics have been determined by [facility], [place], [place]. It hasnot been cleared or approved by the U.S. Food and DrugAdministration. This assay has been validated pursuantto the CLIA regulations and is used for clinicalpurposes.THIS TEST WAS PERFORMED AT:[id number] [place] [address]FRQBXPNSUNDAY GARRISON MD,PHD Blood Venous blood specimen / Unknown 08/28/2025 2:54 PM EST 08/28/2025 6:04 PM EST Shanbam Dlil MD LAB BLOOD ORDERABLES Final Re sult Performing Organization Address [facility] [[email or web address]] Co de Phone Number [facility] [address] [place] [phone] * HIV-1/2 Antigen and Antibodies, Fourth Generation, with Reflexes (08/28/2025 2:54 PM EST) HIV AB/AG Nonreactive Nonreactive [facility] Comment:HIV-1 p24 Ag and/or HIV-1/HIV-2 Ab not detected.A test result that is nonreactive does not exclude thepossibility of exposure to or infection with HIV-1 and/orHIV-2. Nonreactive results in this assay for individualswith prior exposure to HIV-1 and/or HIV-2 may be due toantigen and antibody levels that are below the limit ofdetection of this assay.The [employer] HIV Ag/Ab Combo assay result andsupplemental assay results should be interpreted inconjunction with the patient's clinical presentation,history and other laboratory results. If the results areinconsistent with clinical evidence, additional testing issuggested to confirm the result. Blood Venous blood specimen / Unknown 08/28/2025 2:54 PM EST 08/28/2025 6:04 PM EST us Shabnam Dill MD LAB BLOOD ORDERABLES Final Re sult Performing Organization Address [facility]/ZIP Co de Phone Number [facility] [address] [place] [phone] * (ABNORMAL) J[place]SEY Screen,IFA, with Reflex to Titer and Pattern (08/28/2025 2:54 PM EST) Anti Nuclear Antibody Screen POSITIV E(A) NEGATIVE [facility] Comment:J[place]SEY IFA is a first l ine screen for detecting thepresence of up to approximately 150 autoantibodies invarious autoimmune diseases. A positive JERSEY IFA resultis suggestive of autoimmune disease and reflexes totiter and pattern. Further laboratory testing may beconsidered if clinically indicated.For additional information, please refer tohttp://education.Transbiomed/faq/RQD483(This link is being provided for informational/educational purposes only.) J[place]SEY Titer 1:160(A ) titer [facility] Comment:Reference Range <1:4 0 Negative 1:40-1:80 Low Antibody Level >1:80 Elevated Antibody Level J[place] Pattern Nuclear , Nucleol ar(A) [facility] Comment:Nucleolar pattern is associated with systemic sclerosis(scleroderma), systemic sclerosis/polymyositis overlapand Sjogren's syndrome.AC-8,9,10: NucleolarInternational Consensus on JERSEY Patterns(https://doi.org/10.1515/lzgr-7015-7758) J[place]SEY Titer 2 1:80(A) titer [facility] Comment:A low level JERSEY tite r may be present in pre-clinicalautoimmune diseases and normal individuals. Reference Range <1:40 Negative 1:40-1:80 Low Antibody Level >1:80 Elevated Antibody Level J[place]Y Pattern 2 Nuclear , Homogen eous(A) [facility] Comment:Homogeneous pattern is associated with systemic lupuserythematosus (SLE), drug-induced lupus and juvenileidiopathic arthritis.AC-1: HomogeneousInternational Consensus on JERSEY Patterns(https://doi.org/10.1515/twmo-3074-8225) J[place]SEY TITER 3 1:80(A) titer [facility] Comment:A low level JERSEY tite r may be present in pre-clinicalautoimmune diseases and normal individuals. Reference Range <1:40 Negative 1:40-1:80 Low Antibody Level >1:80 Elevated Antibody Level J[place]Y PATTERN 3 Nuclear , Speckle d(A) [facility] Comment:Speckled pattern is associated with mixed connectivetissue disease (MCTD), systemic lupus erythematosus(SLE), Sjogren's syndrome, dermatomyositis, andsystemic sclerosis/polymyositis overlap.AC-2,4,5,29: SpeckledInternational Consensus on JERSEY Patterns(https://doi.org/10.1515/ebtf-5131-3226)THIS TEST WAS PERFORMED AT:[facility] [place] [id number] MATIAS MD Blood Venous blood specimen / Unknown 08/28/2025 2:54 PM EST 08/28/2025 6:04 PM EST Shabnam Dill MD LAB BLOOD ORDERABLES Final Re sult [facility] [address] [place] [phone] * MR Brain w/o Contrast (06/20/2025) Anatomical Region Laterality Modality Brain Magnetic Resonan ce us Jerome Rodriguez MD IMG MRI PROCEDURES Final Result * Mammography (10/19/2024) Mammogram BIRADS 2 Normal, Abnormal, BIRADS 1 , BIRADS 2 Anatomical Region Laterality Modality Other Historical Provider HEALTH MAINTENANCE Final Result * (ABNORMAL) Lipid Panel, Standard (07/22/2023 9:45 AM EDT) Triglycerides 89 <150 mg/dL [facility] Comment:Desirable Triglyceri de: less than 150 mg/dLBorderline High Triglyceride 150-199 mg/dLHigh Triglyceride: 200-499 mg/dLVery High Triglyceride: greater than or equal to 5OO mg/dL Cholesterol 190 <200 mg/dL [facility] Comment:Desirable Cholestero l: less than 200 mg/dLBorderline High Cholesterol: 200-239 mg/dLHigh Cholesterol: greater than 239 mg/dL LDL Cholesterol Calculated 104(H) <100 mg/dL [facility] Comment:Desirable LDL: less than 100 [...] MD LAB BLOOD ORDERABL ES Final Result [facility] [address] [place] [phone] from Last 3 Months or Most Recently Relevant to Health Maintenance Insurance [facility] Care Teams [employer] Relationship Specialty Start Date End Date Jerome Esqueda MD [address] [place] [phone] PCP - General Internal Medicine 12/04/19
== END 2025-09-11 09:53 | disposition home or self-care (01) ==
LOC: HO.NEURO 09:52
PROVIDERS: Absent Provider Internal Medicine Nephrology; PCP Internal Medicine; Visit Provider Nurse Practitioner
DX: R41.0 Disorientation, unspecified (principal)
CPT/HCPCS: 95700; 95705; 95708

== ENCOUNTER → 2025-09-11 09:55 | Outpatient (BNV) | payer OTHER, SELFPAY | PROVIDERS: Absent Provider Internal Medicine Nephrology; PCP Internal Medicine; Visit Provider Psychiatry & Neurology Neurology | DX: R41.0 Disorientation, unspecified (principal) | CPT/HCPCS: 95719 ==

== ENCOUNTER 2025-09-24 12:47 | Outpatient (AMB) | payer OTHER, SELFPAY ==
--- NOTE | 2025-09-24 13:08 | A.OFFVIS_ITS ---
Vital Signs 09/24/25 13:14 Height 5 ft 1 in Weight 209 lb BMI 39.5 BP 124/68 Blood Pressure Location Lt brachial Position Sitting Respiration 16 Pulse 94 Pulse Source Pulse Oximeter Pulse Oximetry (%) 98 Oxygen Delivery Method Room Air Intake Visit Reasons: 2M Artist'S Representative Required: No Allergies fentanyl Allergy (Unknown, Verified 09/24/25 13:16) Unknown Iodinated Contrast Media (Contrast Dye) Allergy (Unknown, Verified 09/24/25 13:16) Unknown morphine Allergy (Unknown, Verified 09/24/25 13:16) Unknown Sulfa (Sulfonamide Antibiotics) Allergy (Unknown, Verified 09/24/25 13:16) Unknown sulfamethoxazole (From Bactrim) Allergy (Unknown, Verified 09/24/25 13:16) Unknown trimethoprim (From Bactrim) Allergy (Unknown, Verified 09/24/25 13:16) Unknown HPI Comments Details: Elle is a 60-year-old female patient is with a past medical history of seizure, memory concerns, hyperlipidemia, GERD, and depression who is here today for a follow up visit regarding a loss of consciousness . She explained at the time of her last visit on 07/10/2025, that after being diagnosed with a stroke in 2005 she developed seizure activity. She had a few recurrent seizure events a couple times per month after her stroke diagnosis and has been on Keppra. Eventually she was able to come off the Keppra and has been stable for many years until 2021 when she was placed on tacrolimus for her kidney transplant. She had a breakthrough seizure after starting the tacrolimus and since then has been on levetiracetam 500 mg twice daily. Since re-initiation of levetiracetam, she had remained stable up until late April/early May of 2024 when she had an event where she was disoriented and has a complete loss of awareness over the course of an approximate 3 hour time span. During this time, she called family and friends to ask them if they would like to share a glass of wine with her. She however had not been drinking. She was acting very ?silly? according to others whom she spoke to and not quite herself. Elle however has no recollection of these interactions. She was able to recall in-home camera footage and noted that she also had slurred speech. Again, after watching the footed, she had no recollection of interactions or activity that would on over the course of a 3 hour time span. She was not noted on camera or witnessed by others to have any shaking episodes, staring episodes, or loss of consciousness. She does remember taking the levetiracetam 500 mg that morning and overall, she has good compliance with this medication. She denies any illness leading up to the event, significant stress triggers or significant acute changes in her sleep. She does however note that she lost her son approximately 5 months ago and her moods as well as sleep has been affected somewhat chronically since then. At the time of our last visit, I recommended a 24 hour ambulatory EEG and I increased her levetiracetam from 500 mg twice daily to 750 mg twice daily. It appears that since the time of our last visit she has also had an MRI of the brain performed at [facility]. This showed a few punctate bifrontal bitemporal white matter foci, nonspecific and could be sequela of mild chronic microvascular ischemic disease. She had her 24 hour ambulatory EEG on 09/11/2025 which was unremarkable. She tells me today that since the time of our last visit and increasing her levetiracetam dosing, she has been doing well. She has not had any further sync opal episodes, loss of awareness, loss of consciousness, change in behavior, staring episodes, or any nocturnal events including tongue biting or urinary incontinence. She is tolerating the levetiracetam well. Seizure background information: Onset of seizures:2005 Date of last seizure: Likely April/May 2025 Seizure type: Previously witnessed seizures have been tonic-clonic Aura/warning signs: Unknown Postictal period: Disorientation Triggers: Unknown Last brain imagin06/2025 Last EEG: She recalls having an EEG done a few years back but can not recall where Current medications: Levetiracetam 500 mg twice daily Compliance with medications: Good compliance History of brain infection: No History of significant illness or hospitalization: No History of stroke of brain bleed: Patient reports stroke x2. There are micro idiopathic changes on her MRI but no evidence of previous territorial infarct History of pre-term : No History of learning disability: No History of developmental delay: No Family history of seizure No [facility] Medical History (Updated 07/10/25 @ 13:44 by Oksana Raines CNP) Insomnia HLD (hyperlipidemia) Hypertension GERD (gastroesophageal reflux disease) Seizures Review of Systems Const All systems reviewed & are unremarkable except as noted in HPI and below Physical Exam Const General: cooperative, healthy appearing, comfortable and no acute distress Nutritional Appearance: well nourished Orientation/consciousness: patient oriented x3 Limitations: no limitations HEENT Head: Yes normal to inspection and Yes normocephalic Eyes General: appearance normal, both eyes and all related structures Visual Sanderson: normal visual sanderson by confrontation Alignment and Position: alignment normal Periorbital: periorbital findings normal Eyelids: Yes eyelids normal Conjunctivae: conjunctivae normal Sclerae: sclerae normal Neck Neck: Yes normal visual inspection and Yes full ROM Neuro General: patient oriented x3 Cranial nerves: Yes CN's II-XII intact bilaterally Cognition (Neuro): normal cognition Gait exam (Neuro): Normal gait present Motor exam (neuro): no tremor noted Sensory Exam: double simultaneous stimulation for sensation normal Romberg Test: Negative Pupils: Normal pupillary reactivity/response: bilateral Psych Appearance: grossly normal Mental Status: mental status grossly normal Speech and movement: Normal speech and movement present and Clear speech present Affect: normal affect Attitude: cooperative Thought process: Normal thought process present Thought content: Normal thought content present Insight: Good insight present (Psych) Judgement: Good judgement present (Psych) Assessment & Plan Assessment & Plan (1) Seizure disorder as sequela of cerebrovascular accident: Code(s): I69.398 - Other sequelae of cerebral infarction; G40.909 - Epilepsy, unspecified, not intractable, without status epilepticus Category: Medical (2) Disassociation: Code(s): F48.8 - Other specified nonpsychotic mental disorders Category: Medical Plan Elle is a 60-year-old female patient is with a past medical history of seiz ure, memory concerns, hyperlipidemia, GERD, and depression who is here today for an evaluation of loss of consciousness . Rather than a loss of consciousness, this patient describes an episode in late April/early May of 2024 when she had a near 3 hour time span of dissociation and disorientation. There was no loss of consciousness, tongue biting, witnessed shaking, or witnessed staring episodes. She has been compliant with her levetiracetam. She has in the past tolerated levetiracetam at higher dosing and therefore at the time of our last visit I did increase her dose to 750 mg twice daily. I also ordered an EEG and she also had an MRI of the brain. Her testing was very reassuring and she is tolerating the higher dose of levetiracetam. I think it would be reasonable to keep her on the higher dose of levetiracetam and monitor her for symptoms moving forward. I will have her follow up in 6 months or sooner if needed -continue leveteracetam to 750mg twice daily -follow up in 6 months or sooner if needed Coding Level of Care Code Est Pt Level 3 (76885) Diagnoses Seizure disorder as sequela of cerebrovascular accident I69.398; G40.909 Disassociation F48.8
[2025-09-24 13:14] VITALS: BP 124/68; PULSE 94; RESP 16; O2SAT 98; BMI 39.5
--- OUTSIDE RECORDS SUMMARY | 2025-09-24 16:38 | XMS_ITS | Clinical Summary ---
Author Organization [employer] Address [address] [facility] [facility] [address] [place] [address] Care Team Providers Care Radio Adjuster Name Role Phone Jerome Esqueda MD Primary [...] times daily. 1 each 12/06/19 23 Active famotidine (Pepcid) 20 MG tablet Take 1 tablet (20 mg) by mouth 2 times daily. 180 tablet 3 08/21/2025 12:56 PM EST 08/14/20 25 026 Active zolpidem (Ambien) 10 MG tablet TAKE ONE TABLET BY MOUTH AT BEDTIME NEEDED FOR SLEEP 30 tablet 08/30/2025 12:08 PM EST 08/26/20 25 Active sertraline (Zoloft) 100 MG tablet TAKE ONE TABLET BY MOUTH ONCE DAILY 90 tablet 09/19/2025 5:20 PM EST 09/17/20 25 Active sertraline (Zoloft) 100 MG tablet TAKE ONE TABLET BY MOUTH ONCE DAILY 90 tablet 06/21/2025 11:50 AM EDT 06/14/20 25 025 Discontinued zolpidem (Ambien) 10 MG tablet TAKE 1 TABLET BY MOUTH IF NEEDED AT BEDTIME FOR SLEEP 30 tablet 07/29/2025 12:32 PM EDT 07/23/20 25 025 Discontinued [...] informed of referral made on 04/01 to [facility]- provided contact info as well. [...] unexpectedly. Pt receives positive support from her synagogue community and family. Provided empathic counseling and [...] informed of referral made on 04/01 to [facility]- provided contact info as well. [...] [email or web address], it was also recommended by her database support, will place order, reviewed side effects Mixed [...] 01/26/2023 End stage renal failure on dialysis ([facility]) Overview (01/26/2023): previous on PD and now on HD Hemorrhoids without complication 01/26/2023 Hyperlipidemia 01/26/2023 History of renal transplant 01/26/2023 History of thyroidectomy 01/26/2023 Lactic acid acidosis 01/26/2023 Renal transplant failure and rejection Severe obesity (BMI 35.0-39.9) with comorbidity ([facility]) 01/26/2023 Proteinuria 01/20/2023 Seizure ([facility]) 01/20/2023 Assessment & Plan (08/14/2025 2:28 PM EST): Followed by neurology, keppra was increased to 750mg, pending EEG Dyspnea 12/08/2022 Edema 12/08/2022 Murmur 12/08/2022 Elevated blood pressure reading 11/08/2022 Cerebrovascular accident ([facility]) 07/29/2022 Assessment & Plan (05/16/2023 2:21 PM EDT): Patient with a low toilet seat, will send rx for raised toilet seat with handles. Lactic acidosis 07/29/2022 Anemia in chronic kidney disease 07/22/2022 Kidney transplant status 07/22/2022 Assessment & Plan (07/23/2023 10:20 AM EDT): Followed by nephrology History of kidney transplant 03/28/2022 Overview (01/26/2023): campath induction/DCD Depressive disorder 03/05/2022 End-stage renal disease on hemodialysis ([facility]/H[facility] ) 03/05/2022 Gastrointestinal hemorrhage 03/24/2021 Acquired absence [...] Encounters Date Type Department Care Team Description 09/16/2025 Refill [facility] [address] [place] [address] Sheila Rosas MD 09/04/2025 Results Follow-Up [facility] [address] [place] [address] Shabnam Dill MD CBC auto differential, HIV-1/2 Antigen and Antibodies, Fourth Generation, with Reflexes, Jay Jay-Mcclain Virus Antibody Panel, Additional followed-up results: 4 08/28/2025 2:20 PM EST Office Visit [facility] [address] [place] [address] Shabnam Dill MD Localized swelling, mass and lump, neck (Primary Dx); Kyphosis of cervical region, unspecified kyphosis type 08/28/2025 Travel 08/27/2025 Telephone [facility] [address] [place] [address] Jerome Esqueda MD Nurse Triage 08/23/2025 Refill [facility] [address] [place] [address] Jerome Esqueda MD 08/14/2025 2:00 PM EST Telemedicine [facility] [address] [place] [address] Jerome Esqueda MD Seizure (CMS/HCC) (HCC) (Primary Dx); Primary insomnia; Bereavement; Gastroesophageal reflux disease without esophagitis 08/14/2025 Travel 08/13/2025 Telephone [facility] [address] [place] [address] Jerome Esqueda MD chart prep 07/20/2025 Refill [facility] [address] [place] [address] Jerome Esqueda MD from Last 3 Months Immunizations Immunization Administration Dates Next Due Influenza injectable quadriv alent IIV4 with preservative 08/29/2017,08/03/2016 Influenza injectable quadriv alent preservative free 07/30/2021 Influenza, IIV3, injectable 07/14/2023,1 ,08/03/2016,07/25,07/31/2014 Influenza, Unspecified 10/01/2022,2015,07/25/2015,07/31 Pfizer Covid-19 Vaccine 12+ 02/13/2022 Pfizer Covid-19 Vaccine 12+ Bivalent 2022 Pfizer Covid-19 Vaccine 12+ monique-sucrose ([place] Cap) 08/13/2021 Pneumococcal Polysaccharide PPSV23 04/18/2007 Tdap 04/05/2011 Zoster, Recombinant 07/07/2022, 2,03/12/2022,03/12 Social History Tobacco Use Types Packs/Day Years [...] swelling, mass and lump, neck JAY JAY MCCLAIN VIRUS ANTIBODY PANEL Routine 08/28/2025 2:54 PM EST Localized swelling, mass and lump, neck HIV 1/2 ANTIGEN/ANTIBODY, FOURTH GENERATION W/RFL Routine 08/28/2025 2:54 PM EST Localized swelling, mass and lump, neck CBC WITH AUTO DIFFERENTIAL Routine 08/28/2025 2:54 PM EST Localized swelling, mass and lump, neck HM MAMMOGRAPHY Routine 10/19/2024 LIPID PANEL, STANDARD Routine 07/22/2023 9:45 AM EDT Mixed hyperlipidemia from Last 3 Months or Most Recently Relevant to Health Maintenance Results * T-SPOT??.TB (08/28/2025 2:54 PM EST) T Spot TB Negative Negative [facility] Comment:A negative test resu lt [...] as aquantitative test. TS PANEL A 0 [facility] TS PANEL B 0 [facility] Negative Control Passed [facility] Positive Control Passed [facility] Comment:For additional infor mation, please refer [email or web address].Swarm/faq/IFH954(This link is being provided for informational/educational purposes only.)THIS TEST WAS PERFORMED AT:e(ye)[employer] [id number] [place] [address]OXWZCZSSUNDAY GARRISON MD,PHD 08/28/2025 2:54 PM EST 08/28/2025 6:04 PM EST us Shabnam Dill MD LAB BLOOD ORDERABLES Final Re sult Performing Organization Address City/[facility]/ZIP Co de Phone Number [facility] [address] [place] [phone] * (ABNORMAL) Cytomegalovirus Antibodies (IgG,IgM) (08/28/2025 2:54 PM EST) Cytomegalovirus Antibody IgG >10.00(A) U/mL [facility] Comment:U/mL Interpretation ----- <0.60 Negative 0.60-0.69 Equivocal > or = 0.70 PositiveA positive result indicates that the patient hasantibody to CMV. It does not differentiate betweenan active or past infection. Cytomegalovirus Antibody IgM <30.00 AU/mL [facility] Comment:AU/mL Interpretation ----- <30.00 No [...] two or more weeks.THIS TEST WAS PERFORMED AT:[employer] [place] [phone] MATIAS MD 08/28/2025 2:54 PM EST 08/28/2025 6:04 PM EST us Shabnam Dill MD LAB BLOOD ORDERABLES Final Re sult Performing Organization Address City/[facility]/ZIP Co de Phone Number [facility] [address] [place] [phone] * (ABNORMAL) CBC auto differential (08/28/2025 2:54 PM EST) White Blood Count 8.9 4.8 - 10.8 X10*3/uL [facility] Red Blood Count 4.61 4.20 - 5.50 X10*6/uL [facility] Hemoglobin 12.1 12.0 - 16.0 g/dl [facility] Hematocrit 40.2 37.0 - 47.0 % [facility] Mean Corpuscular Volume 87.2 80.0 - 98.0 fL [facility] Mean Corpuscular Hemoglobin 26.2(L) 27.0 - 33.0 pg [facility] Mean Corpuscular HGB Conc 30.1(L) 31.0 - 35.0 g/dl [facility] Red Cell Distribution Width 15.5 11.0 - 16.0 % [facility] Platelet Count 201 160 - 400 X10*3/uL [facility] Mean Platelet Volume 10.8 9.4 - 12.3 fL [facility] Neutrophils Percent Auto 74.2(H) 45 - 73 % [facility] Imm Gran Pct Auto 0.4 0.0 - 0.4 % [facility] Lymphocytes Percent Auto 17.9(L) 20 - 40 % [facility] Monocytes Percent Auto 6.2 2 - 11 % [facility] Eosinophils Percent Auto 1.1 0 - 4 % [facility] Basophils Percent Auto 0.2 0 - 2 % [facility] NRBC Pct Auto 0.0 0.0 - 0.2 /100WBC [facility] Neutrophils Absolute Auto 6.6 2.0 - 8.3 x10*3/uL [facility] Imm Gran Abs Auto 0.04(H) 0.00 - 0.03 X10*3/uL [facility] Lymphocytes Absolute Auto 1.6 1.2 - 4.9 X10*3/uL [facility] Monocytes Absolute Auto 0.6 0.1 - 1.2 X10*3/uL [facility] Eosinophils Absolute Auto 0.1 0.0 - 0.4 X10*3/uL [facility] Basophils Absolute Auto 0.0 0.0 - 0.2 X10*3/uL [facility] NRBC Abs Auto 0.000 0.0 - 0.012 X10*3/uL [facility] Blood Venous blood specimen / Unknown 08/28/2025 2:54 PM EST 08/28/2025 6:04 PM EST us Shabnam Dill MD LAB BLOOD ORDERABLES Final Re sult [facility] [address] [place] [address] [phone] * (ABNORMAL) Jay Jay-Mcclain Virus Antibody Panel (08/28/2025 2:54 PM EST) Pathologist [facility] EBV Viral Capsid Antigen (VCA) Antibody IgG 638.00(A) U/mL [facility] Comment:U/mL Interpretation ---- <18.00 Negative 18.00-21.99 Equivocal >21.99 Positive EBV Viral Capsid Antigen (VCA) Ab IgM <36.00 U/mL [facility] Comment:U/mL Interpretation ---- <36.00 Negative 36.00-43.99 Equivocal >43.99 Positive EBV Nuclear Antigen (EBNA) Antibody IgG >600.00(A ) U/mL [facility] Comment:U/mL Interpretation ---- <18.00 Negative 18.00-21.99 Equivocal >21.99 Positive Interpretation: SEE NOTE [facility] Comment:Suggestive of a past Jay Jay-Mcclain virus infection.In infants, a similar pattern may occur as a resultof passive maternal transfer of antibody.THIS TEST WAS PERFORMED AT:[employer] [place] [phone]- [phone] MATIAS MD Blood Venous blood specimen / Unknown 08/28/2025 2:54 PM EST 08/28/2025 6:04 PM EST us Shabnam Dill MD LAB BLOOD ORDERABLES Final Re sult [facility] [address] [place] [address] [phone] * Bartonella Species Antbodies (IgG,IgM) W/Refl Titers (08/28/2025 2:54 PM EST) B. henselae Ab IgG Screen Negative [facility] B. henselae Ab IgM Screen Negative [facility] B. amaro Antibody IgG, Screen Negative [facility] B. amaro antibody IgM, Screen Negative [facility] Comment: Reference Range: NegativeWhereas sera [...] its analytical performancecharacteristics have been determined by [employer]. It hasnot been cleared or approved by the U.S. Food and DrugAdministration. This assay has been validated pursuantto the CLIA regulations and is used for clinicalpurposes.THIS TEST WAS PERFORMED AT:[employer] [id number] [place] [address]ECRAPIBSUNDAY GARRISON MD,PHD Blood Venous blood specimen / Unknown 08/28/2025 2:54 PM EST 08/28/2025 6:04 PM EST Shabnam Dill MD LAB BLOOD ORDERABLES Final Re sult Performing Organization Address [facility]/ZIP Co de Phone Number [facility] [address] [place] [phone] * HIV-1/2 Antigen and Antibodies, Fourth Generation, with Reflexes (08/28/2025 2:54 PM EST) HIV AB/AG Nonreactive Nonreactive [facility] Comment:HIV-1 p24 Ag and/or HIV-1/HIV-2 Ab not detected.A test result that is nonreactive does not exclude thepossibility of exposure to or infection with HIV-1 and/orHIV-2. Nonreactive results in this assay for individualswith prior exposure to HIV-1 and/or HIV-2 may be due toantigen and antibody levels that are below the limit ofdetection of this assay.The [employer] HIV Ag/Ab Combo assay result andsupplemental assay results should be interpreted inconjunction with the patient's clinical presentation,history and other laboratory results. If the results areinconsistent with clinical evidence, additional testing issuggested to confirm the result. Blood Venous blood specimen / Unknown 08/28/2025 2:54 PM EST 08/28/2025 6:04 PM EST us Shabnam Dill MD LAB BLOOD ORDERABLES Final Re sult Performing Organization Address City/[facility]/ZIP Co de Phone Number [facility] [address] [place] [phone] * (ABNORMAL) [place] Screen,IFA, with Reflex to Titer and Pattern (08/28/2025 2:54 PM EST) Anti Nuclear Antibody Screen POSITIV E(A) NEGATIVE [facility] Comment:[place] IFA is a first l ine screen for detecting thepresence of up to approximately 150 autoantibodies invarious autoimmune diseases. A positive [place] IFA resultis suggestive of autoimmune disease and reflexes totiter and pattern. Further laboratory testing may beconsidered if clinically indicated.For additional information, please refer [email or web address]/faq/KPR539(This link is being provided for informational/educational purposes only.) [place] Titer 1:160(A ) titer [facility] Comment:Reference Range <1:4 0 Negative 1:40-1:80 Low Antibody Level >1:80 Elevated Antibody Level [place] Pattern Nuclear , Nucleol ar(A) [facility] Comment:Nucleolar pattern is associated with systemic sclerosis(scleroderma), systemic sclerosis/polymyositis overlapand Sjogren's syndrome.AC-8,9,10: NucleolarInternational Consensus on [place] Patterns(https://doi.org/10.1515/umfw-2752-9749) [place] Titer 2 1:80(A) titer [facility] Comment:A low level [place] tite r may be present in pre-clinicalautoimmune diseases and normal individuals. Reference Range <1:40 Negative 1:40-1:80 Low Antibody Level >1:80 Elevated Antibody Level [place] Pattern 2 Nuclear , Homogen eous(A) [facility] Comment:Homogeneous pattern is associated with systemic lupuserythematosus (SLE), drug-induced lupus and juvenileidiopathic arthritis.AC-1: HomogeneousInternational Consensus on JERSYE Patterns(https://doi.org/10.1515/rynu-1479-9619) [place] TITER 3 1:80(A) titer [facility] Comment:A low level [place] tite r may be present in pre-clinicalautoimmune diseases and normal individuals. Reference Range <1:40 Negative 1:40-1:80 Low Antibody Level >1:80 Elevated Antibody Level [place] PATTERN 3 Nuclear , Speckle d(A) [facility] Comment:Speckled pattern is associated with mixed connectivetissue disease (MCTD), systemic lupus erythematosus(SLE), Sjogren's syndrome, dermatomyositis, andsystemic sclerosis/polymyositis overlap.AC-2,4,5,29: SpeckledInternational Consensus on [place] Patterns(https://doi.org/10.1515/ehri-9649-1695)THIS TEST WAS PERFORMED AT:[employer] [place] [id number] MATIAS MD Blood Venous blood specimen / Unknown 08/28/2025 2:54 PM EST 08/28/2025 6:04 PM EST us Shabnam Dill MD LAB BLOOD ORDERABLES Final Re sult [facility] [address], [place] [phone] * Mammography (10/19/2024) Mammogram BIRADS 2 Normal, Abnormal, BIRADS 1 , BIRADS 2 Anatomical Region Laterality Modality Other Historical Provider HEALTH MAINTENANCE Final Result * (ABNORMAL) Lipid Panel, Standard (07/22/2023 9:45 AM EDT) Triglycerides 89 <150 mg/dL [facility] Comment:Desirable Triglyceri de: less than 150 mg/dLBorderline High Triglyceride 150-199 mg/dLHigh Triglyceride: 200-499 mg/dLVery High Triglyceride: greater than or equal to 5OO mg/dL Cholesterol 190 <200 mg/dL [facility] Comment:Desirable Cholestero l: less than 200 mg/dLBorderline High Cholesterol: 200-239 mg/dLHigh Cholesterol: greater than 239 mg/dL LDL Cholesterol Calculated 104(H) <100 mg/dL [facility] Comment:Desirable LDL: less than 100 mg/dLNear Optimal/Above Optimal LDL: 110- 129 mg/dLBorderline High LDL: 130-159 mg/dLHigh LDL: 160-189 mg/dLVery High LDL: greater than or equal to 190 mg/dL HDL Cholesterol 69 >40 mg/dL [facility] Comment:Desirable HDL: great er than 40 mg/dL Note: This HDL assay may give artificially low results in patients with liver disease. Blood Venous blood specimen / Unknown 07/22/2023 9:45 AM EDT 07/22/2023 2:26 PM EDT Jerome Rodriguez MD LAB BLOOD ORDERABL ES Final Result [facility] [address] [place] [phone] [phone] from Last 3 Months or Most Recently Relevant to Health Maintenance Insurance [facility] Care Teams Radio Adjuster Relationship Specialty Start Date End Date Jerome Esqueda MD [address] [place] [address] PCP - General Internal Medicine 12/04/19
--- OUTSIDE RECORDS SUMMARY | 2025-09-24 16:38 | XMS_ITS | Clinical Summary ---
Author Organization [employer] [facility] Address [address] [place] [address] Care Team Providers Care Cuprous Chloride Helper Name Role Phone Name, Chris LOVELACE Primary Care Provider [phone] Surgical History Surgery Date Site/Laterality Comments OTHER SURGICAL HISTORY 09/26/2013 PROCEDURE: [place] RENAL ALTRNSPLJ IMPLTJ GRF W/O ENVIRONMENTAL CONTROL ADMINISTRATOR NEPHRECTOMY; COMMENT: Living related donor HERNIA REPAIR PROCEDURE: HISTORICAL HERNIA REPAIR/NAVNEET HERNIA REPAIR PROCEDURE: HISTORICAL HERNIA REPAIR/UMB BREAST REDUCTION PROCEDURE: [place] BREAST REDUCTION OTHER SURGICAL HISTORY PROCEDURE: [place] COLECTOMY PARTIAL W/ANASTOMOSIS; COMMENT: diverticular bleed PARATHYROIDECTOMY PROCEDURE: HISTORICAL PARATHYROIDECTOMY COLONOSCOPY 01/05/2016 PROCEDURE: HISTORICAL COLONOSCOPY; COMMENT: internal hemorrhoids, repeat 10 years. No path report. OTHER SURGICAL HISTORY 03/2020 PROCEDURE: [place] CLOSURE NEPHROCUTANEOUS/PYELOCUTANEOUS FISTULA Medical History Medical History Date Comments End-stage renal disease (ESR D) (CMS/HCC V24, CMS/[facility] V28) 08/13/2019 DX:End-stage renal disease (ESRD) ([facility]); COMMENT: Secondary to focal segmental glomerulosclerosis s/p transplant. Depression 08/13/2019 DX:Depression Gout 08/13/2019 DX:Gout History of maternal deep vei n thrombosis (DVT) 08/13/2019 DX:History of maternal deep vein thrombosis (DVT); COMMENT: Upper extremity Hyperlipidemia 08/13/2019 DX:Hyperlipidemi a History of seizure 08/13/2019 DX:History of seizure Positive PPD, treated 08/13/2019 DX:Positiv e PPD, treated; COMMENT: INH Refusal of blood transfusion s as patient is Orthodoxy 08/13/2019 DX:Refusal of blood trans fusions as patient is Orthodoxy Severe obesity with body mas s index (BMI) of 35.0 to 39.9 with comorbidity (CMS/HCC V24, [facility] V28) 08/13/2019 DX:Severe obesity with body mass [...] Years Used Date Smoking Tobacco: Former Cigarettes 0 Q uit: 05/27/1987 Smokeless Tobacco: Never Alcohol Use Standard Drinks/Week Comments Yes 0 (1 standard drink = 0.6 oz pur e alcohol) Comments Unknown Sex and Gender Information Value Date Recorded Sex Assigned at Not on file Legal Sex Female 8:50 PM EST Gender Identity Not on file Sexual Orientation Not on file Plan of Treatment Health Maintenance Due Date Last Done Comments Breast Cancer Screening 1965 Colorectal Cancer Screening: Colonoscopy 1965 COVID-19 Vaccine (#1) 1970 Zoster Vaccines (1 of 2) 1984 Cervical Cancer Screening: P ap Smear 1986 Pneumococcal Vaccine: 50+ Ye ars (2 of 2 - PCV) 2015 04/18/2007 RSV Immunization Adult Patie nts (1 - Risk 50-74 years 1-dose series) 2015 DTaP,Tdap,and Td Vaccines (2 - Td or Tdap) 04/05/2021 04/05/2011 Cholesterol Screening (Lipid Panel) 09/11/2022 HIV Screening 09/11/2022 Hepatitis C Screening 09/11/2022 Social Influencers of Health Screening 09/11/2022 Depression Screening 10/10/2024 Influenza Vaccine (#1) 2025 HIB Vaccines Aged Out No longer [...] Documents on File Type Date Recorded Patient Tax Intern Expl anation Health Care Decision (hx) 01/17/2020 AD SEBASTIAN DIRECTIVE Health Care Decision (hx) 01/17/2020 AD SEBASTIAN DIRECTIVE Care Teams Cuprous Chloride Helper Relationship Specialty Start Date End Date Name, MD Chris [address] [place] [address] PCP - General Internal Medicine 07/30/20
--- OUTSIDE RECORDS SUMMARY | 2025-09-24 16:38 | XMS_ITS | Encounter Summary ---
Author Organization [employer] Address [address] [place] [address] 7 [place] [address] Care Team Providers Care B Operator Name Role Phone Jerome Esqueda MD Primary Care Prov ider Reason for Visit * Reason Onset Date Comments New Med Request 02/24/2024 Encounter Details Date Type Department Care Team ([facility] st Contact Info) Description 02/24/2024 Telephone [facility] [address] [place], [place] [phone] Jerome Esqueda MD [address] [place] [address] New Med Request Social History Tobacco Use [...] 1:32 PM EDT Tc from [place] with [facility] specialty pharmacy calling in regards to [...] documented as of this encounter Care Teams B Operator Relationship Specialty Start Date End Date Jerome Esqueda MD [address] [place] [phone] PCP - General Internal Medicine 12/04/19 documented as of this encounter
--- OUTSIDE RECORDS SUMMARY | 2025-09-24 16:38 | XMS_ITS | Encounter Summary ---
Author Organization [facility] Address [address] [facility] [address] [place] [phone] Phone Care Team Providers Care Screening Tech Name Role Phone Yanna Min MD Primary Care Provider + Encounter Details Date Type Department Care Team (Late st Contact Info) Description 01/03/2019 Ancillary Orders [facility] Interventional RadIology [address] [place] [address] Danis Lange MD, MIMI [address] [place] [phone] [email or web address] [place] Social History Tobacco Use Types Packs/Day [...] lump documented in this encounter Care Teams Screening Tech Relationship Specialty Start Date End Date Yanna Min MD [address] [place] [address] PCP - General 01/03/19 documented as of this encounter Additional Source Comments The information contained in this document represents components of the legal health record. It is not the complete legal health record.[facility]
--- OUTSIDE RECORDS SUMMARY | 2025-09-24 16:38 | XMS_ITS | Encounter Summary ---
Author Organization [employer] Address [address] [facility] 7 [place] [address] Care Team Providers Care Actuarial Associate Name Role Phone Jerome Esqueda MD Primary Care Prov ider Reason for Visit * Reason Comments Med Change Request Encounter Details Date Type Department Care Team ([facility] Contact Info) Description 07/23/2023 Refill [facility] [address] [place], [place] [phone] Jerome Esqueda MD [address] [place] [address] Social History Tobacco Use Types Packs/Day Years [...] documented as of this encounter Care Teams Actuarial Associate Relationship Specialty Start Date End Date Jerome Esqueda MD [address] [place] [phone] PCP - General Internal Medicine 12/04/19 documented as of this encounter
--- OUTSIDE RECORDS SUMMARY | 2025-09-24 16:38 | XMS_ITS | Encounter Summary ---
Author Organization [employer] Address 75 [facility] 7 [place] [address] Care Team Providers Care Heel Nailing Machine Operator Name Role Phone Jerome Esqueda MD Primary Care Prov ider Reason for Visit * Reason Onset Date Comments Referral 07/30/2024 FYI 07/30/2024 Encounter Details Date Type Department Care Team ([facility] st Contact Info) Description 07/30/2024 Telephone [facility] MEDICINE [address] [place] [address] Jerome Esqueda MD [address] [place], [place] [phone] Referral; FYI Social History Tobacco Use Types [...] BRADY listed on file to speak with [employer] [employer]. * Telephone Encounter - Richardson Serna - 07/30/2024 3:22 PM EDT Dk Carl at [employer] calling to report patient had a anxiety and depression screening on 07/25 depression was scored at 21 and is listed severe and anxiety was a 14 which is moderate would like a call back at [phone] also if a referral can be put [...] documented as of this encounter Care Teams Heel Nailing Machine Operator Relationship Specialty Start Date End Date Jerome Esqueda MD [address] [place] [address] PCP - General Internal Medicine 12/04/19 documented as of this encounter
--- OUTSIDE RECORDS SUMMARY | 2025-09-24 16:38 | XMS_ITS | Encounter Summary ---
Author Organization [employer] Address [address] [place] [address] [place] [address] Care Team Providers Care Cement Storage Worker Name Role Phone Jerome Esqueda MD Primary Care Prov ider Reason for Visit * Reason Onset Date Comments PT1 11/17/2022 Encounter Details Date Type Department Care Team ([facility] st Contact Info) Description 11/17/2022 Telephone [facility] CHC MED & PEDS [address] [place], [place] [phone] Jerome Esqueda MD [address] [place] [address] PT1 Social History Tobacco Use Types Packs/Day [...] PT1 Name of facility: [facility] Specialty: Both Left and Right Foot Location: [address], [place] [address] Date: 01-19-2023 Time: 1:45 pm fax: [phone] wheelchair: n/a Air And Hydronic Balancing Technician: n/a documented in this encounter Plan of Treatment Not on file documented as of this encounter Visit Diagnoses Not on filedocumented in this encounter Care Teams Cement Storage Worker Relationship Specialty Start Date End Date Jerome Esqueda MD [address] [place] [address] PCP - General Internal Medicine 12/04/19 documented as of this encounter
--- OUTSIDE RECORDS SUMMARY | 2025-09-24 16:38 | XMS_ITS | Encounter Summary ---
Author Organization [employer] Address 75 [facility] 7 [place] [address] Care Team Providers Care Manager Baby Name Role Phone Jerome Esqueda MD Primary Care Prov ider Reason for Visit * Reason Onset Date Comments Referral 12/12/2024 Encounter Details Date Type Department Care Team ([facility] st Contact Info) Description 12/12/[address] [facility] MEDICINE [address] [place] [address] Jerome Esqueda MD 505 [place] [address] Referral Social History Tobacco Use Types Packs/Day [...] new Referral for podiatry due to Old Music Critic Dying. Pt would like to seeif there are any in [place] or somewhere close to her. Contact pt at [phone] documented in this encounter Plan of Treatment Not on file documented as of this encounter Visit Diagnoses Not on filedocumented in this encounter Additional Health Concerns Assessment Noted Time PHQ-9 Depression Total Score: 1 05/16/20 23 1:21 PM EDT documented as of this encounter Care Teams Manager Baby Relationship Specialty Start Date End Date Jerome Esqueda MD [address] [place] [address] PCP - General Internal Medicine 12/04/19 documented as of this encounter
--- OUTSIDE RECORDS SUMMARY | 2025-09-24 16:38 | XMS_ITS | Encounter Summary ---
Author Organization [employer] Address 75 [facility] 7 [place] [address] Care Team Providers Care Branch Logistics Supervisor Name Role Phone Jerome Esqueda MD Primary Care Prov ider Reason for Visit * Reason Comments Med Refill Encounter Details Date Type Department Care Team ([facility] Contact Info) Description 04/24/2025 Refill [facility] CHC MED & PEDS [address] [place], [place] [phone] Jerome Esqueda MD [address] [place] [address] Social History Tobacco Use Types Packs/Day Years [...] documented as of this encounter Care Teams Branch Logistics Supervisor Relationship Specialty Start Date End Date Jerome Esqueda MD [address] [place] [address] PCP - General Internal Medicine 12/04/19 documented as of this encounter
--- OUTSIDE RECORDS SUMMARY | 2025-09-24 16:38 | XMS_ITS | Encounter Summary ---
Author Organization [employer] Address 75 [facility] 7 [place] [address] Care Team Providers Care Cable Mechanic Name Role Phone Jerome Esqueda MD Primary Care Prov ider Reason for Visit * Reason Onset Date Comments triage 02/16/2023 Encounter Details Date Type Department Care Team (Late st Contact Info) Description 02/16/2023 Telephone [facility] MEDICINE [address] [place] [address] Jerome Esqueda MD [address] [place] [address] triage Social History Tobacco Use Types Packs/Day [...] on filedocumented in this encounter Care Teams Cable Mechanic Relationship Specialty Start Date End Date Fan Jerome Rodriguez MD [address] [place] [address] PCP - General Internal Medicine 12/04/19 documented as of this encounter
--- OUTSIDE RECORDS SUMMARY | 2025-09-24 16:38 | XMS_ITS | Encounter Summary ---
Author Organization [employer] Address [address] [place] [address] [place] [address] Care Team Providers Care Chief Investigator Name Role Phone Jerome Esqueda MD Primary Care Prov ider Reason for Visit * Reason Onset Date Comments Pt1 04/15/2023 Encounter Details Date Type Department Care Team ([facility] st Contact Info) Description 04/15/2023 Telephone [facility] CHC MED & PEDS [address] [place], [place] [phone] Jerome Esqueda MD 505 [place] [address] Pt1 Social History Tobacco Use Types Packs/Day [...] requesting a PT1 Form: Name of facility: [facility] Dental Specialty: Dental Apt Location: [address] [place] [address] Date: 05/13/2023 Time: 11:30 am fax: n/a wheelchair: no Hydraulics Teacher: no Visits: 1 Please contact pt at [phone] documented in this encounter Plan of Treatment Not on file documented as of this encounter Visit Diagnoses Not on filedocumented in this encounter Care Teams Chief Investigator Relationship Specialty Start Date End Date Jerome Esqueda MD [address] [place] [address] PCP - General Internal Medicine 12/04/19 documented as of this encounter
--- OUTSIDE RECORDS SUMMARY | 2025-09-24 16:38 | XMS_ITS | Encounter Summary ---
Author Organization [employer] Address 75 [facility] 7 [place] [address] Care Team Providers Care Molybdenum Steamer Operator Name Role Phone Jerome Esqueda MD Primary Care Prov ider Reason for Visit * Reason Onset Date Comments letter 09/10/2024 Encounter Details Date Type Department Care Team ([facility] Contact Info) Description 09/10/2024 Telephone [facility] CHC MED & PEDS 505 [place], [place] [phone] Jerome Esqueda MD [address] [place] [address] letter Social History Tobacco Use Types Packs/Day [...] apartment complex in which she lives in [place] requires a letter stating she has anxiety [...] documented as of this encounter Care Teams Molybdenum Steamer Operator Relationship Specialty Start Date End Date Jerome Esqueda MD [address] [place] [address] PCP - General Internal Medicine 12/04/19 documented as of this encounter
--- OUTSIDE RECORDS SUMMARY | 2025-09-24 16:38 | XMS_ITS | Encounter Summary ---
Author Organization [employer] Address 75 [facility] 7 [place] [address] Care Team Providers Care Copy Director Name Role Phone Jerome Esqueda MD Primary Care Prov ider Reason for Visit * Reason Comments Med Change Request Encounter Details Date Type Department Care Team ([facility] Contact Info) Description 07/26/2023 Refill [facility] CHC MED & PEDS 505 [place], [place] [phone] Jerome Esqueda MD 505 [place] [address] Social History Tobacco Use Types Packs/Day Years [...] documented as of this encounter Care Teams Copy Director Relationship Specialty Start Date End Date Jerome Esqueda MD [address] [place] [address] PCP - General Internal Medicine 12/04/19 documented as of this encounter
--- OUTSIDE RECORDS SUMMARY | 2025-09-24 16:38 | XMS_ITS | Clinical Summary ---
Author Organization [facility] Address [address] [address] Phone Care Team Providers Care Glassware Maker Name Role Phone Yanna Min MD Primary [...] topic Medical Devices Not on file Insurance Push [employer] O [employer] [place] [address] [place] [address] [facility] E[employer] [facility] [place] [address] [place] [address] [employer] [place] [address] [place] [address] [employer] [facility] [place] [address] [place] [address] [facility] Care Teams Glassware Maker Relationship Specialty Start Date End Date Yanna Min MD [address] [place] [address] PCP - General 01/03/19 Additional Source Comments The information contained in this document represents components of the legal health record. It is not the complete legal health record.[facility]
--- OUTSIDE RECORDS SUMMARY | 2025-09-24 16:38 | XMS_ITS | Encounter Summary ---
Author Organization [employer] Address [address] [place] [address] Care Team Providers Care Library Clerk Talking Books Name Role Phone Jerome Esqueda MD Primary Care Prov ider Reason for Visit * Reason Onset Date Comments pt1 12/22/2022 Encounter Details Date Type Department Care Team ([facility] st Contact Info) Description 12/22/2022 Telephone [facility] MEDICINE [address] [place] [address] Jerome Esqueda MD [address] [place] [address] pt1 Social History Tobacco Use Types Packs/Day [...] EDT Tc from pt requesting pt1 Location: [address] [place] [address] [place] [address] Specialty: kidney specialist Time: 8:30 am Date: January, , february 22, March 25, April 22, may 20 Lace Tearing Supervisor: no wheelchair accessible : no documented in this encounter Plan of Treatment Not on file documented as of this encounter Visit Diagnoses Not on filedocumented in this encounter Care Teams Library Clerk Talking Books Relationship Specialty Start Date End Date Jerome Esqueda MD [address] [place] [address] PCP - General Internal Medicine 12/04/19 documented as of this encounter
--- OUTSIDE RECORDS SUMMARY | 2025-09-24 16:38 | XMS_ITS | Encounter Summary ---
Author Organization [employer] Address 75 [facility] 7 [place] [address] Care Team Providers Care Managed Security Sales Consultant Name Role Phone Jerome Esqueda MD Primary Care Prov ider Reason for Visit * Reason Onset Date Comments PT1 11/02/2023 Encounter Details Date Type Department Care Team ([facility] st Contact Info) Description 11/02/2023 Telephone [facility] CHC MED & PEDS [address] [place], [place] [phone] Jerome Esqueda MD [address] [place] [address] PT1 Social History Tobacco Use Types Packs/Day [...] 10 AM Visits: n/a [facility] [address] [facility] Facility[facility] associate [facility] Chair: no Pre Billing Specialist Needed: n/a Home address confirmed: [address], [address] [facility] documented in this encounter Plan of Treatment Not on file documented as of this encounter Visit Diagnoses Not on filedocumented in this encounter Additional Health Concerns Assessment Noted Time PHQ-9 Depression Total Score: 1 05/16/20 23 1:21 PM EDT documented as of this encounter Care Teams Managed Security Sales Consultant Relationship Specialty Start Date End Date Jerome Esqueda MD [address] [place] [address] PCP - General Internal Medicine 12/04/19 documented as of this encounter
--- OUTSIDE RECORDS SUMMARY | 2025-09-24 16:38 | XMS_ITS | Encounter Summary ---
Author Organization [facility] Address [address] [place] [address] Phone Care Team Providers Care Lead Network Architect Name Role Phone Yanna Min MD Primary Care Provider + Encounter Details Date Type Department Care Team (Late st Contact Info) Description 01/04/2019 Procedure [facility] [address] [place] [address] Social History Tobacco Use Types Packs/Day Years [...] on filedocumented in this encounter Care Teams Lead Network Architect Relationship Specialty Start Date End Date Yanna Min MD [facility] [place] [address] PCP - General 01/03/19 documented as of this encounter Additional Source Comments The information contained in this document represents components of the legal health record. It is not the complete legal health record.[facility]
--- OUTSIDE RECORDS SUMMARY | 2025-09-24 16:38 | XMS_ITS | Encounter Summary ---
Author Organization [employer] Address 75 [facility] 7 [place] [address] Care Team Providers Care Lace Burn Out Tender Name Role Phone Jerome Esqueda MD Primary Care Prov ider Encounter Details Date Type Department Care Team ([facility] st Contact Info) Description 08/11/2023 [facility] CHC MED & PEDS [address] [place], [place] [phone] Jerome Esqueda MD [address] [place] [address] Social History Tobacco Use Types Packs/Day Years [...] documented as of this encounter Care Teams Lace Burn Out Tender Relationship Specialty Start Date End Date Jerome Esqueda MD [address] [place] [address] PCP - General Internal Medicine 12/04/19 documented as of this encounter
== END 2025-09-24 13:23 | disposition home or self-care (01) ==
LOC: HO.HSM 12:47
PROVIDERS: PCP Internal Medicine; Visit Provider Nurse Practitioner
DX: I69.398 Other sequelae of cerebral infarction (principal); G40.909 Epilepsy, unspecified, not intractable, without status epilepticus; F48.8 Other specified nonpsychotic mental disorders
CPT/HCPCS: 99213

== ENCOUNTER → 2025-09-24 12:47 | Outpatient (BNVA) | payer OTHER, SELFPAY | PROVIDERS: PCP Internal Medicine; Visit Provider Nurse Practitioner | DX: I69.398 Other sequelae of cerebral infarction (principal); G40.909 Epilepsy, unspecified, not intractable, without status epilepticus; F48.8 Other specified nonpsychotic mental disorders | CPT/HCPCS: 99212 ==